=== PATIENT | male | born 1975 | race Caucasian/White ===

== ENCOUNTER 2017-12-07 04:51 | Inpatient (IN) | payer OTHER ==
[2017-12-07 04:51] VITALS: BMI 24.0
--- NOTE | 2017-12-07 05:09 | C.PDOC ---
History Of Present Illness 42 year old male presents to the ED c/o right foot pain for the past few days. Patient has known worsening edema but has failed to follow up with his Doctor. Patient denies trauma, injury, fall, weakness, numbness, CP, SOB, palpitations. Time Seen by Provider: 12/07/17 05:09 Chief Complaint (Nursing): Lower Extremity Problem/Injury History Per: Patient History/Exam Limitations: no limitations Onset/Duration Of Symptoms: Days Current Symptoms Are (Timing): Still Present Recent travel outside of the [place]: No Additional History Per: Patient - Ankle/Foot Description Of Injury: Other Past Medical History Reviewed: Historical Data, Nursing Documentation, Vital Signs Vital Signs: Last Vital Signs Temp 98 F 12/07/17 04:58 Pulse 84 12/07/17 04:58 Resp 14 12/07/17 04:58 BP 158/87 H 12/07/17 04:58 Pulse Ox 100 12/07/17 05:21 - Medical History PMH: Hypercholesterolemia Denies: Chronic Kidney Disease Surgical History: No Surg Hx Family History: States: Unknown Family Hx - Social History Hx Tobacco Use: No Hx Alcohol Use: No Hx Substance Use: No - Immunization History Hx Tetanus Toxoid Vaccination: No Hx Influenza Vaccination: Yes Hx Pneumococcal Vaccination: No Review Of Systems Constitutional: Negative for: Fever, Chills Cardiovascular: Negative for: Chest Pain Respiratory: Negative for: Shortness of Breath Gastrointestinal: Negative for: Nausea, Vomiting Musculoskeletal: Positive for: Foot Pain Neurological: Negative for: Weakness, Numbness Physical Exam - Physical Exam Appears: Non-toxic, No Acute Distress Skin: Warm, Dry Head: Normacephalic Eye(s): bilateral: Normal Inspection Oral Mucosa: Moist Neck: Supple Chest: Symmetrical Cardiovascular: Rhythm Regular, No Murmur Respiratory: No Rales, No Rhonchi, No Wheezing Gastrointestinal/Abdominal: Soft, No Tenderness, No Guarding, No Rebound Extremity: Normal ROM, Tenderness (medial aspect of right foot), Capillary Refill (< 2 seconds), No Swelling Pulses: Left Dorsalis Pedis: Normal, Right Dorsalis Pedis: Normal Neurological/Psych: Oriented x3, Normal Speech Gait: Steady ED Course And Treatment - Laboratory Results Result Diagrams: 12/07/17 05:34 12/07/17 05:34 O2 Sat by Pulse Oximetry: 100 (ON RA) Pulse Ox Interpretation: Normal Progress Note: Plan: - VBG. - Labs. - IV fluids. - Toradol 30 mg IVP. - UA Disposition Counseled Patient/Family Regarding: Studies Performed, Diagnosis - Disposition Disposition Time: 05:09 Condition: FAIR Forms: [facility] (Micronesian) - Clinical Impression Clinical Impression: Renal failure - Scribe Statement The provider has reviewed the documentation as recorded by the Scribe Salty Morris All medical record entries made by the Scribe were at my direction and personally dictated by me. I have reviewed the chart and agree that the record accurately reflects my personal performance of the history, physical exam, medical decision making, and the department course for this patient. I have also personally directed, reviewed, and agree with the discharge instructions and disposition. Physician Patient Turnover Patient Signed Over To: Rony Alvarez Handoff Comments: pending call back from dr carpenter and dispostion
[2017-12-07] MEDS ORDERED: Sodium Chloride 0.9% 1,000 ML IV ONE (05:12)
[2017-12-07] MEDS ORDERED: Sodium Chloride 0.9% 1,000 ML ONE (05:19)
[2017-12-07 05:36] LABS: VENOUS BLOOD GAS BASE EXCESS -8.5 mmol/L (0.0-2.0); VENOUS BLOOD GAS PCO2 42 mmHg (40-60); VENOUS BLOOD GAS PO2 22 mm/Hg (30-55); VENOUS BLOOD PH 7.25 (7.32-7.43)
[2017-12-07 05:37] LABS: BASO # 0.1 K/uL (0.0-0.2); EOS # 0.5 K/uL (0.0-0.7); EOS % 4.5 % (0.0-4.0); LYMPH # 1.4 K/uL (1.0-4.3); LYMPH % 13.4 % (20.0-40.0); MEAN CELL VOLUME 79.7 fL (80.0-94.0); MEAN CORPUSCULAR HEMOGLOBIN 27.1 pg (27.0-31.0); MEAN CORPUSCULAR HGB CONC 33.9 g/dL (33.0-37.0); MEAN PLATELET VOLUME 7.2 fL (7.2-11.7); MONO # 0.7 K/uL (0.0-0.8); MONO % 6.8 % (0.0-10.0); NEUT # 7.7 K/uL (1.8-7.0); NEUT % 74.3 % (50.0-75.0); RBC 3.7 Mil/uL (4.40-5.90); RED CELL DISTRIBUTION WIDTH 15.9 % (11.5-14.5); WHITE BLOOD COUNT 10.3 K/uL (4.8-10.8)
[2017-12-07 05:50] LABS: PROTHROMBIN TIME 11.1 SECONDS (9.7-12.2)
[2017-12-07 06:14] LABS: ALB/GLOB RATIO 1.1 (1.0-2.1); ALBUMIN 3.9 g/dL (3.5-5.0); CALCIUM 7.9 mg/dl (8.6-10.4)
[2017-12-07 06:30] LABS: SQUAMOUS EPITHIAL < 1 /hpf (0-5); URINE AMORPHOUS SEDIMENT RARE /ul (<OCC); URINE BILIRUBIN NEGATIVE (NEGATIVE); URINE BLOOD 1+ (NEGATIVE); URINE CLARITY Clear (Clear); URINE COLOR Straw (YELLOW); URINE GLUCOSE (UA) 1+ mg/dL (Normal); URINE LEUKOCYTE ESTERASE NEG Leu/uL (Negative); URINE PROTEIN 2+ mg/dL (NEGATIVE); URINE UROBILINOGEN NORMAL mg/dL (0.2-1.0)
--- NOTE | 2017-12-07 11:53 | CP.PCM.CON ---
History of Present Illness - History of Present Illness History of Present Illness: 42 yo male w/ known hx of ckd 4, no previous renal biopsy, presents for evaluation of renal failure as per instructions from PMD. Per pt. labs done in September, pt was asked to come to ER, however couldnt follow up. He c/o rt LE edema. Denies any nausea vomiting diarrhea, change in appetite weight loss lethargy chest pain dizziness good uop, no dysuria or hematuria no nsaid use last cretainine 3.5 mg/dl in 2015 denies any hx of dm, htn, heart disease pmhx: ckd 4 hld no prior surgeries allergies: nkda family hx: signicant for esrd in mpther and brother, both on hd. no hx of dm soc hx: denies any toxic habits. 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 [employer] ros: 10 point ros obtained, pertinent positives and negatives per hpi Review of Systems - Review of Systems All systems: reviewed and no additional remarkable complaints except (a sper hpi ) Past Patient History - Infectious Disease Hx of Infectious Diseases: None - Past Medical History & Family History Past Medical History?: Yes - Past Social History Smoking Status: Never Smoked - CARDIAC Hx Hypercholesterolemia: Yes - PULMONARY Hx Respiratory Disorders: No Hx Tuberculosis: No - NEUROLOGICAL HX Cerebrovascular Accident: No - HEENT Hx HEENT Problems: No - RENAL Hx Chronic Kidney Disease: No - ENDOCRINE/METABOLIC Hx Endocrine Disorders: No - HEMATOLOGICAL/ONCOLOGICAL Hx Blood Disorders: No Hx Cancer: No - INTEGUMENTARY Hx Dermatological Problems: No - MUSCULOSKELETAL/RHEUMATOLOGICAL Hx Musculoskeletal Disorders: No Hx Falls: No - GASTROINTESTINAL Hx Gastrointestinal Disorders: No - GENITOURINARY/GYNECOLOGICAL Hx Genitourinary Disorders: No - PSYCHIATRIC Hx Substance Use: No - SURGICAL HISTORY Hx Surgeries: No - ANESTHESIA Hx Anesthesia: No Hx Anesthesia Reactions: No Hx Malignant Hyperthermia: No Meds Allergies/Adverse Reactions: Allergies Allergy/AdvReac Type Severity Reaction Status Date / Time No Known Allergies Allergy Verified 12/07/17 05:01 - Medications Medications: Current Medications Calcitriol (Rocaltrol) 0.25 mcg PO DAILY [facility] Heparin Sodium (Porcine) (Heparin) 5,000 units SC Q12 [facility] Pantoprazole Sodium (Protonix Ec Tab) 20 mg PO DAILY [facility] Prednisolone (Prednisolone) 30 mg 0.5 mg/kg (31 mg) PO Q12 ANDI Stop: 12/09/17 22:01 Sodium Bicarbonate (Sodium Bicarbonate Tab) 650 mg PO BID ANDI Physical Exam - Constitutional Appears: Non-toxic, No Acute Distress, Chronically Ill - Head Exam Head Exam: NORMAL INSPECTION, NORMOCEPHALIC - Eye Exam Eye Exam: Normal appearance, PERRL - ENT Exam ENT Exam: Mucous Membranes Moist, Normal Exam - Neck Exam Neck exam: Positive for: Full Rom, Normal Inspection - Respiratory Exam Respiratory Exam: Clear to Auscultation Bilateral, NORMAL BREATHING PATTERN - Cardiovascular Exam Cardiovascular Exam: REGULAR RHYTHM, RRR - GI/Abdominal Exam GI & Abdominal Exam: Distended, Normal Bowel Sounds, Soft - Extremities Exam Extremities exam: Positive for: normal inspection - Back Exam Back exam: NORMAL INSPECTION - Neurological Exam Neurological exam: Alert, Oriented x3 - Psychiatric Exam Psychiatric exam: Normal Affect, Normal Mood - Skin Skin Exam: Dry, Intact, Warm Results - Vital Signs Recent Vital Signs: Last Vital Signs Temp 98.7 F 12/07/17 08:30 Pulse 79 12/07/17 08:30 Resp 18 12/07/17 08:30 BP 149/78 12/07/17 08:30 Pulse Ox 99 12/07/17 08:30 - Labs Result Diagrams: 12/07/17 05:34 12/07/17 05:34 Labs: Laboratory Results - last 24 hr 12/07/17 12/07/17 12/07/17 05:30 05:34 05:34 WBC 10.3 RBC 3.70 L Hgb 10.0 L D Hct 29.5 L MCV 79.7 L MCH 27.1 MCHC 33.9 RDW 15.9 H Plt Count 231 MPV 7.2 Neut % (Auto) 74.3 Lymph % (Auto) 13.4 L [place] % (Auto) 6.8 Eos % (Auto) 4.5 H Baso % (Auto) 1.0 Neut # (Auto) 7.7 H Lymph # (Auto) 1.4 [place] # (Auto) 0.7 Eos # (Auto) 0.5 Baso # (Auto) 0.1 PT 11.1 INR 1.0 APTT 36 H pO2 22 L VBG pH 7.25 L VBG pCO2 42 VBG HCO3 16.4 VBG Total CO2 19.7 L VBG O2 Sat (Calc) 37.7 L VBG Base Excess -8.5 L VBG Potassium 3.4 L Sodium 140.0 Chloride 109.0 H Glucose 90 Lactate 0.6 L Potassium Carbon Dioxide Anion Gap BUN Creatinine Est GFR ( Amer) Est GFR (Non-Af Amer) Random Glucose Calcium Total Bilirubin AST ALT Alkaline Phosphatase Total Protein Albumin Globulin Albumin/Globulin Ratio Venous Blood Potassium 3.4 L Urine Color Urine Clarity Urine pH Ur Specific [place] Urine Protein Urine Glucose (UA) Urine Ketones Urine Blood Urine Nitrate Urine Bilirubin Urine Urobilinogen Ur Leukocyte Esterase Urine WBC (Auto) Urine RBC (Auto) Ur Squamous Epith Cells Amorphous Sediment 12/07/17 12/07/17 05:34 06:20 WBC RBC Hgb Hct MCV MCH MCHC RDW Plt Count MPV Neut % (Auto) Lymph % (Auto) [place] % (Auto) Eos % (Auto) Baso % (Auto) Neut # (Auto) Lymph # (Auto) [place] # (Auto) Eos # (Auto) Baso # (Auto) PT INR APTT pO2 VBG pH VBG pCO2 VBG HCO3 VBG Total CO2 VBG O2 Sat (Calc) VBG Base Excess VBG Potassium Sodium 143 Chloride 108 H Glucose Lactate Potassium 3.6 Carbon Dioxide 17 L Anion Gap 22 H BUN 79 H Creatinine 8.5 H* Est GFR ( Amer) 8 Est GFR (Non-Af Amer) 7 Random Glucose 86 Calcium 7.9 L Total Bilirubin 0.4 AST 22 ALT 38 Alkaline Phosphatase 75 Total Protein 7.3 Albumin 3.9 Globulin 3.4 Albumin/Globulin Ratio 1.1 Venous Blood Potassium Urine Color Straw Urine Clarity Clear Urine pH 5.0 Ur Specific [place] 1.006 Urine Protein 2+ H Urine Glucose (UA) 1+ H Urine Ketones Negative Urine Blood 1+ H Urine Nitrate Negative Urine Bilirubin Negative Urine Urobilinogen Normal Ur Leukocyte Esterase Neg Urine WBC (Auto) 1 Urine RBC (Auto) 3 Ur Squamous Epith Cells < 1 Amorphous Sediment Rare H Assessment & Plan (1) Renal failure Status: Acute (2) Gout attack Status: Acute - Assessment and Plan (Free Text) Assessment: # progressive renal dz. esrd # gout # anemia of renal dz # hypokalemia # htn # metabolic acidosis plan: likely esrd, prior hx of advanced renal dz, family hx of esrd (? 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 Explained risks of refusing treatment , pt verbalized understanding. f/u renal US check hiv, hepatitis panel check ua check iron stores check pth / phos. start po calcitriol PO bicarb supplement potassium as needed, etiology of hypokalemia unclear, previously worked up
[2017-12-07] MEDS ORDERED: Bupivacaine 0.5% Inj(30mL) IJ ONE (13:31)
[2017-12-07] MEDS ORDERED: Triamcinolone Acetonide 40 mg/mL Inj IAA ONE (13:32)
[2017-12-07 13:45] VITALS: RESP 20
[2017-12-07] MEDS ORDERED: Bupivacaine 0.5% Inj(30mL) INJ ONE (13:45)
--- NOTE | 2017-12-07 14:18 | US ---
PROCEDURE: Ultrasound of the Kidneys HISTORY: acute renal failure COMPARISON: Renal ultrasound dated 04/13/2016. TECHNIQUE: Sonogram of the kidneys. FINDINGS: RIGHT KIDNEY: Measures: 9.7 x 4.6 x 4.0 cm. Increased echogenicity. Normal in size and contour. No stone, solid mass lesion or hydronephrosis visualized. LEFT KIDNEY: Measures: 10.1 x 5.5 x 4.8 cm. Increased echogenicity. Normal in size and contour. No stone, solid mass lesion or hydronephrosis visualized. OTHER FINDINGS: Urinary bladder prevoid volume measures 185.4 cc. Postvoid bladder volume is close to 0. IMPRESSION: Bilateral increased cortical echogenicity compatible with medical renal disease. No significant urinary bladder postvoid residual volume.
[2017-12-07] MEDS: PrednisoLONE 6 MG/2 ML SYR PO SCH (21:35)
[2017-12-08 07:50] LABS: BLOOD UREA NITROGEN 83 mg/dL (9-20); CALCIUM 8.7 mg/dl (8.6-10.4); GFR AFRICAN-AMERICAN 8; GFR NON-AFRICAN AMERICAN 7
[2017-12-08 07:58] VITALS: BP 142/85; PULSE 102; TEMP 98.5; O2SAT 95
[2017-12-08 08:00] LABS: HEPATITIS B SURFACE AG Negative (NEGATIVE)
--- NOTE | 2017-12-08 08:07 | CP.PCM.HP ---
History of Present Illness - History of Present Illness History of Present Illness: CC: Gout 42 y/o male with Gout, HTN, Hyperlipidemia, ESRD, (last Cr 8.4 last week). He was ask to go to ER after speaking w/ Dr Elaine but refuse dialysis. Patient has mild R foot painyesterday. He went to ER and noted with very high creatinine and admitted. Present on Admission - Present on Admission Any Indicators Present on Admission: Yes History of DVT/PE: No History of Uncontrolled Diabetes: No Urinary Catheter: No Decubitus Ulcer Present: No Review of Systems - Review of Systems Systems not reviewed;Unavailable: Acuity of Condition - Constitutional Constitutional: absent: Daytime Sleepiness, Excessive Sweating, Headache - EENT Eyes: absent: Loss of Peripheral Vision, Requires Corrective Lenses Nose/Mouth/Throat: Nasal Congestion. absent: Epistaxis, Nasal Discharge, Nasal Trauma, Hoarsness, Mouth Pain, Neck Mass - Cardiovascular Cardiovascular: absent: Chest Pain with Activity, Diaphoresis, Dyspnea, Irregular Heart Rhythm, Leg Edema - Respiratory Respiratory: absent: Cough, Hemoptysis, Dyspnea on Exertion, Wheezing, Chest Congestion, Change in Mucous Color - Gastrointestinal Gastrointestinal: Early Satiety, Heartburn, Nausea. absent: Abdominal Pain, Diarrhea, Dyspepsia, Loose Stools - Genitourinary Genitourinary: Dysuria, Urinary Urgency. absent: Difficulty Urinating, Nocturia - Musculoskeletal Musculoskeletal: Joint Swelling. absent: Atrophy, Back Pain, Loss of Height, Myalgias, Neck Pain - Neurological Neurological: absent: Abnormal Gait, Dizziness, Focal Weakness, Loss of Vision Past Patient History - Infectious Disease Hx of Infectious Diseases: None - Past Medical History & Family History Past Medical History?: Yes - Past Social History Smoking Status: Never Smoked - CARDIAC Hx Hypercholesterolemia: Yes - PULMONARY Hx Respiratory Disorders: No Hx Tuberculosis: No - NEUROLOGICAL HX Cerebrovascular Accident: No - HEENT Hx HEENT Problems: No - RENAL Hx Chronic Kidney Disease: No - ENDOCRINE/METABOLIC Hx Endocrine Disorders: No - HEMATOLOGICAL/ONCOLOGICAL Hx Blood Disorders: No Hx Cancer: No - INTEGUMENTARY Hx Dermatological Problems: No - MUSCULOSKELETAL/RHEUMATOLOGICAL Hx Musculoskeletal Disorders: No Hx Falls: No - GASTROINTESTINAL Hx Gastrointestinal Disorders: No - GENITOURINARY/GYNECOLOGICAL Hx Genitourinary Disorders: No - PSYCHIATRIC Hx Substance Use: No - SURGICAL HISTORY Hx Surgeries: No - ANESTHESIA Hx Anesthesia: No Hx Anesthesia Reactions: No Hx Malignant Hyperthermia: No Meds Allergies/Adverse Reactions: Allergies Allergy/AdvReac Type Severity Reaction Status Date / Time No Known Allergies Allergy Verified 12/07/17 05:01 Physical Exam - Constitutional Appears: Well, No Acute Distress - Eye Exam Eye Exam: absent: Normal appearance - ENT Exam ENT Exam: Mucous Membranes Moist - Neck Exam Neck exam: Positive for: Full Rom. Negative for: Lymphadenopathy, Thyromegaly - Respiratory Exam Respiratory Exam: Decreased Breath Sounds. absent: Rales, Rhonchi, Wheezes - Cardiovascular Exam Cardiovascular Exam: REGULAR RHYTHM, +S1, Systolic Murmur. absent: Gallop, JVD - GI/Abdominal Exam GI & Abdominal Exam: Soft. absent: Guarding, Tenderness - Extremities Exam Extremities exam: Positive for: full ROM, normal capillary refill, pedal edema. Negative for: calf tenderness, joint swelling Results - Vital Signs Recent Vital Signs: Last Vital Signs Temp 98.5 F 12/08/17 07:57 Pulse 102 H 12/08/17 07:57 Resp 20 12/08/17 07:57 BP 142/85 12/08/17 07:57 Pulse Ox 95 12/08/17 07:57 - Labs Result Diagrams: 12/07/17 05:34 12/08/17 07:00 Labs: Laboratory Results - last 24 hr 12/07/17 12/07/17 12/08/17 21:41 22:36 07:00 Sodium Potassium Chloride Carbon Dioxide Anion Gap BUN Creatinine Est GFR ( Amer) Est GFR (Non-Af Amer) Random Glucose Calcium % Saturation 14 L Ur Random Creatinine 36.3 U Random Total Protein 167.0 H Hep Bs Antigen HIV 1&2 Antibody Screen 12/08/17 12/08/17 07:00 07:00 Sodium 143 Potassium 3.5 L Chloride 111 H Carbon Dioxide 14 L Anion Gap 22 H BUN 83 H Creatinine 8.7 H* Est GFR ( Amer) 8 Est GFR (Non-Af Amer) 7 Random Glucose 118 H Calcium 8.7 % Saturation Ur Random Creatinine U Random Total Protein Hep Bs Antigen Negative HIV 1&2 Antibody Screen Negative Assessment & Plan - Assessment and Plan (Free Text) Assessment: Familial Nephropathy w/ hypokalemia; ESRD Ac gout r foot; HTN Discuss with and ; Want to think it out at home c/o less pressure Will discharge and f/i up on 3-5 days
[2017-12-08] MEDS ORDERED: Pneumococcal 23-Valent Vaccine IM ONE (10:00)
[2017-12-08] MEDS ORDERED: Pantoprazole 20 mg EC Tab PO SCH (10:00)
[2017-12-08] MEDS: PrednisoLONE 6 MG/2 ML SYR PO SCH (10:33)
== END 2017-12-08 11:09 | disposition home or self-care (01) | DRG 556 ==
LOC: C.ER 04:51 → C.9E 09:59 → C.3T 13:26
PROVIDERS: ADMIT Internal Medicine; ATTEND Internal Medicine
DX: M79.661 Pain in right lower leg (principal); E87.2 Acidosis; N18.4 Chronic kidney disease, stage 4 (severe); I12.9 Hypertensive chronic kidney disease with stage 1 through stage 4 chronic kidney disease, or unspecified chronic kidney disease; M10.9 Gout, unspecified; E87.6 Hypokalemia; E78.5 Hyperlipidemia, unspecified; D64.9 Anemia, unspecified

== ENCOUNTER 2017-12-13 23:59 | Inpatient (IN) | payer OTHER ==
[2017-12-14] VITALS: BMI 24.0
--- NOTE | 2017-12-14 00:24 | C.PDOC ---
History Of Present Illness 42 y/o male presents to the ED complaining he began to feel short of breath at home, onset earlier tonight. Denies any chest pain or palpitations. Patient admits to feeling very anxious. O2 Sat on arrival is 100% on RA. Otherwise no fever, chills, cough, congestion, leg pain/swelling, nausea, or vomiting. Time Seen by Provider: 12/14/17 00:24 Chief Complaint (Nursing): Shortness Of Breath History Per: Patient History/Exam Limitations: no limitations Onset/Duration Of Symptoms: Hrs Current Symptoms Are (Timing): Still Present Initiating Event: Other Quality: Dull Exacerbating Factor(s): Exertion Current Respiratory Medications: See Home Med List Severity: Moderate Pain Scale Rating Of: 4 Associated Symptoms: Anxiety. denies: Fever, Chills, Sweating, Chest Pain Reports Recently: Seen In ED, Treated By A Physician, Hospitalized Recent travel outside of the [place]: No Additional History Per: Patient Past Medical History Reviewed: Historical Data, Nursing Documentation, Vital Signs Vital Signs: Last Vital Signs Temp 98.7 F 12/14/17 02:55 Pulse 93 H 12/14/17 02:55 Resp 20 12/14/17 02:55 BP 148/97 H 12/14/17 02:55 Pulse Ox 100 12/14/17 02:55 - Medical History PMH: Hypercholesterolemia Denies: Chronic Kidney Disease Surgical History: No Surg Hx Family History: States: Unknown Family Hx - Social History Hx Tobacco Use: No Hx Alcohol Use: No Hx Substance Use: No - Immunization History Hx Tetanus Toxoid Vaccination: No Hx Influenza Vaccination: Yes Hx Pneumococcal Vaccination: No Review Of Systems Constitutional: Negative for: Fever, Chills Eyes: Negative for: Vision Change ENT: Negative for: Throat Pain Cardiovascular: Positive for: Chest Pain. Negative for: Palpitations Respiratory: Positive for: Shortness of Breath. Negative for: Cough Gastrointestinal: Negative for: Nausea, Vomiting Genitourinary: Negative for: Dysuria Musculoskeletal: Negative for: Back Pain, Leg Pain Skin: Negative for: Rash Neurological: Negative for: Weakness Psych: Positive for: Anxiety Physical Exam - Physical Exam Appears: No Acute Distress Skin: Warm, Dry, No Diaphoretic Head: Normacephalic Eye(s): bilateral: Normal Inspection Oral Mucosa: Dry Neck: Trachea Midline, Supple Chest: Symmetrical Cardiovascular: Rhythm Regular Respiratory: No Rales, Rhonchi (scattered), No Wheezing Gastrointestinal/Abdominal: Soft, No Tenderness, No Distention Back: Normal Inspection Extremity: Normal ROM, No Pedal Edema Extremity: Bilateral: Atraumatic, Normal Color And Temperature Pulses: Left Dorsalis Pedis: Normal, Right Dorsalis Pedis: Normal Neurological/Psych: Oriented x3, Normal Speech Gait: Steady ED Course And Treatment - Laboratory Results Result Diagrams: 12/14/17 00:51 12/14/17 00:51 ECG: Interpreted By Me, Viewed By Me ECG Rhythm: Sinus Rhythm (101), Nonspecific Changes O2 Sat by Pulse Oximetry: 100 (RA) Pulse Ox Interpretation: Normal - Radiology CXR Interpretation: Yes: Other (mild vasc congestion). No: Infiltrates, Fracture, Pnemothorax Progress Note: Labs, EKG, and CXR ordered and reviewed. Disposition Discussed With DrBurton: Maximino Peng Comment: accepted the pt on his service and took over the care at 5:30 AM Doctor Will See Patient In The: ED Counseled Patient/Family Regarding: Studies Performed, Diagnosis - Disposition Disposition: HOSPITALIZED Disposition Time: 00:24 Condition: FAIR Forms: [employer] ([place]) - POA Present On Arrival: Poor Glycemic Control - Clinical Impression Clinical Impression: Renal failure, Dyspnea, CHF (congestive heart failure), ESRD (end stage renal disease) - Scribe Statement The provider has reviewed the documentation as recorded by the Scribe (Mayela Vee) Provider Attestation: All medical record entries made by the Scribe were at my direction and personally dictated by me. I have reviewed the chart and agree that the record accurately reflects my personal performance of the history, physical exam, medical decision making, and the department course for this patient. I have also personally directed, reviewed, and agree with the discharge instructions and disposition. Decision To Admit - Pt Status Changed To: Hospital Disposition Of: Inpatient - Admit Certification Admit to Inpatient:: After my assessment, the patient will require hospitalization for at least two midnights. This is because of the severity of symptoms shown, intensity of services needed, and/or the medical risk in this patient being treated as an outpatient. - InPatient: Physician Admission Certification: I certify that this patient requires 2 or more midnights of care for the following reason:: After my assessment, the patient will require hospitalization for at least two midnights. This is because of the severity of symptoms shown, intensity of services needed, and/or the medical risk in this patient being treated as an outpatient. - . Bed Request Type: Telemetry Admitting Physician: Maximino Peng Patient Diagnosis: Renal failure, Dyspnea, CHF (congestive heart failure), ESRD (end stage renal disease)
[2017-12-14 00:54] LABS: BASO # 0.1 K/uL (0.0-0.2); BASO % 0.8 % (0.0-2.0); EOS # 0.1 K/uL (0.0-0.7); EOS % 0.5 % (0.0-4.0); HEMOGLOBIN 9.9 g/dL (12.0-18.0); LYMPH # 1.5 K/uL (1.0-4.3); LYMPH % 10.8 % (20.0-40.0); MEAN CELL VOLUME 79.8 fL (80.0-94.0); MEAN CORPUSCULAR HEMOGLOBIN 26.7 pg (27.0-31.0); MEAN CORPUSCULAR HGB CONC 33.4 g/dL (33.0-37.0); MEAN PLATELET VOLUME 7.5 fL (7.2-11.7); MONO # 1.2 K/uL (0.0-0.8); NEUT # 10.8 K/uL (1.8-7.0); NEUT % 78.9 % (50.0-75.0); RBC 3.72 Mil/uL (4.40-5.90); RED CELL DISTRIBUTION WIDTH 15.9 % (11.5-14.5); WHITE BLOOD COUNT 13.6 K/uL (4.8-10.8)
[2017-12-14 01:05] LABS: ABG ALLEN TEST POS; ARTERIAL BLOOD GAS HCO3 16.7 mmol/L (21-28); ARTERIAL BLOOD GAS O2 SAT 99.1 % (95-98); ARTERIAL BLOOD GAS PCO2 28 mm/Hg (35-45); ARTERIAL BLOOD GAS PH 7.31 (7.35-7.45); ARTERIAL BLOOD GAS PO2 104 mm/Hg (80-100)
[2017-12-14 01:20] LABS: TROPONIN I 0.015 ng/mL (0.00-0.120)
[2017-12-14 01:36] LABS: ALB/GLOB RATIO 1.4 (1.0-2.1); ALBUMIN 4.2 g/dL (3.5-5.0); CALCIUM 8.2 mg/dl (8.6-10.4)
[2017-12-14] MEDS ORDERED: Potassium Chloride 10 mEq ER Tab PO STA (03:13)
[2017-12-14] MEDS ORDERED: Potassium Chloride 10 mEq ER Tab PO ONE (03:44)
--- NOTE | 2017-12-14 08:33 | RAD ---
PROCEDURE: CHEST RADIOGRAPH, 1 VIEW HISTORY: SOB COMPARISON: 04/12/2016 FINDINGS: LUNGS: No consolidation. PLEURA: No pneumothorax or pleural fluid seen. CARDIOVASCULAR: Heart size top normal. Mild pulmonary venous congestion -increased since prior exam. OSSEOUS STRUCTURES: No significant abnormalities. VISUALIZED UPPER ABDOMEN: Normal. OTHER FINDINGS: None. IMPRESSION: Interval increased pulmonary venous congestion since 2016.
--- NOTE | 2017-12-14 08:41 | CP.PCM.HP ---
History of Present Illness - History of Present Illness History of Present Illness: CC: Pain Patient seen last week in Hospital and does not f/up c/o has 2 jobs. Pt has recurrence of gout on left foot and now also on right. Pain is throbbing and has to limp to walk. He went back to ER and admitted. Present on Admission - Present on Admission Any Indicators Present on Admission: Yes History of DVT/PE: No History of Uncontrolled Diabetes: No Urinary Catheter: No Decubitus Ulcer Present: No Review of Systems - Constitutional Constitutional: Anorexia, Fatigue, Weight Loss, Weakness. absent: Excessive Sweating, Headache, Increased Appetite, Lethargy - EENT Eyes: absent: Change in Vision, Floaters, Irritation, Loss of Peripheral Vision , Sees Flashes Ears: absent: Decreased Hearing, Ear Discharge, Tinnitus, Abnormal Hearing, Dizziness Nose/Mouth/Throat: absent: Nasal Congestion, Bleeding Gums, Halitosis, Odynophagia, Neck Pain - Cardiovascular Cardiovascular: absent: Chest Pain, Irregular Heart Rhythm, Leg Edema, Leg Ulcers, Orthopnea, Palpitations, Pedal Edema, Syncope - Respiratory Respiratory: absent: Cough, Dyspnea, Hemoptysis, Chest Congestion - Gastrointestinal Gastrointestinal: Dyspepsia, Early Satiety. absent: Bloating, Dysphagia, Heartburn, Hematochezia, Loose Stools, Melena, Nausea - Genitourinary Genitourinary: absent: Difficulty Urinating, Dysuria, Urinary Hesitance - Integumentary Integumentary: absent: Alopecia, Change in Pigmentation, Lesions, Rash - Neurological Neurological: Abnormal Gait. absent: Dizziness, Numbness, Focal Weakness, Loss of Vision, Restless Legs Past Patient History - Infectious Disease Hx of Infectious Diseases: None - Past Medical History & Family History Past Medical History?: Yes - Past Social History Smoking Status: Never Smoked - CARDIAC Hx Hypercholesterolemia: Yes - PULMONARY Hx Respiratory Disorders: No Hx Tuberculosis: No - NEUROLOGICAL HX Cerebrovascular Accident: No - HEENT Hx HEENT Problems: No - RENAL Hx Chronic Kidney Disease: No - ENDOCRINE/METABOLIC Hx Endocrine Disorders: No - HEMATOLOGICAL/ONCOLOGICAL Hx Blood Disorders: No Hx Cancer: No - INTEGUMENTARY Hx Dermatological Problems: No - MUSCULOSKELETAL/RHEUMATOLOGICAL Hx Musculoskeletal Disorders: No Hx Falls: No - GASTROINTESTINAL Hx Gastrointestinal Disorders: No - GENITOURINARY/GYNECOLOGICAL Hx Genitourinary Disorders: No - PSYCHIATRIC Hx Substance Use: No - SURGICAL HISTORY Hx Surgeries: No - ANESTHESIA Hx Anesthesia: No Hx Anesthesia Reactions: No Hx Malignant Hyperthermia: No Meds Allergies/Adverse Reactions: Allergies Allergy/AdvReac Type Severity Reaction Status Date / Time No Known Allergies Allergy Verified 12/07/17 05:01 Physical Exam - Constitutional Appears: Well - Eye Exam Eye Exam: Normal appearance - ENT Exam ENT Exam: Mucous Membranes Moist - Neck Exam Neck exam: Positive for: Full Rom. Negative for: Lymphadenopathy, Tenderness - Respiratory Exam Respiratory Exam: Clear to Auscultation Bilateral. absent: Rales, Rhonchi, Wheezes - Cardiovascular Exam Cardiovascular Exam: REGULAR RHYTHM, +S1, +S2. absent: Gallop, JVD, Systolic Murmur - GI/Abdominal Exam GI & Abdominal Exam: Soft. absent: Hernia, Tenderness Results - Vital Signs Recent Vital Signs: Last Vital Signs Temp 99 F 12/14/17 06:21 Pulse 96 H 12/14/17 07:25 Resp 20 12/14/17 07:25 BP 143/73 12/14/17 06:21 Pulse Ox 99 12/14/17 07:25 - Labs Result Diagrams: 12/14/17 00:51 12/14/17 00:51 Labs: Laboratory Results - last 24 hr 12/14/17 12/14/17 12/14/17 00:51 00:51 00:51 WBC 13.6 H RBC 3.72 L Hgb 9.9 L Hct 29.7 L MCV 79.8 L MCH 26.7 L MCHC 33.4 RDW 15.9 H Plt Count 248 MPV 7.5 Neut % (Auto) 78.9 H Lymph % (Auto) 10.8 L [place] % (Auto) 9.0 Eos % (Auto) 0.5 Baso % (Auto) 0.8 Neut # (Auto) 10.8 H Lymph # (Auto) 1.5 [place] # (Auto) 1.2 H Eos # (Auto) 0.1 Baso # (Auto) 0.1 PT 11.0 INR 1.0 APTT 35 H Puncture Site pCO2 pO2 HCO3 ABG pH ABG Total CO2 ABG O2 Saturation ABG Base Excess Buck Test ABG Potassium A-a O2 Difference Respiratory Index Glucose Lactate FiO2 Sodium 138 Potassium 2.9 L Chloride 104 Carbon Dioxide 13 L Anion Gap 24 H BUN 90 H Creatinine 8.8 H* Est GFR ( Amer) 8 Est GFR (Non-Af Amer) 7 Random Glucose 137 H Calcium 8.2 L Magnesium 1.9 Total Bilirubin 0.5 AST 18 ALT 41 Alkaline Phosphatase 73 Troponin I 0.0150 NT-Pro-B Natriuret Pep 1830 H Total Protein 7.2 Albumin 4.2 Globulin 3.1 Albumin/Globulin Ratio 1.4 Arterial Blood Potassium 12/14/17 01:00 WBC RBC Hgb Hct MCV MCH MCHC RDW Plt Count MPV Neut % (Auto) Lymph % (Auto) [place] % (Auto) Eos % (Auto) Baso % (Auto) Neut # (Auto) Lymph # (Auto) [place] # (Auto) Eos # (Auto) Baso # (Auto) PT INR APTT Puncture Site Rr pCO2 28 L pO2 104 H HCO3 16.7 L ABG pH 7.31 L ABG Total CO2 15.0 L ABG O2 Saturation 99.1 H ABG Base Excess -10.6 L Buck Test Pos ABG Potassium 2.8 L A-a O2 Difference 11.0 Respiratory Index 0.1 Glucose 128 H Lactate 0.8 FiO2 21.0 Sodium 137.0 Potassium Chloride 108.0 H Carbon Dioxide Anion Gap BUN Creatinine Est GFR ( Amer) Est GFR (Non-Af Amer) Random Glucose Calcium Magnesium Total Bilirubin AST ALT Alkaline Phosphatase Troponin I NT-Pro-B Natriuret Pep Total Protein Albumin Globulin Albumin/Globulin Ratio Arterial Blood Potassium 2.8 L - EKG Data EKG Interpreted by: Myself Rate: Normal - EKG Data When Compared to Previous EKG: No Significant Change Assessment & Plan - Assessment and Plan (Free Text) Assessment: Acute gout on both feet; ESRD w/ uremic sx HTN Discuss in length c/o holding off dialysis but getting gout daily. Also has lose wt c/o nausea & early satiety - still undecided c/o dialysis Supportive care
--- NOTE | 2017-12-14 09:23 | CP.PCM.CON ---
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 Surgery is consulted to evaluate for HD access. His Cr in 2013 was 4 baseline. This year November Cr is elevated to 8. IN the past pt refused HD access in the past. Pt was scheduled for permacath today. Refused. Will plan tomorrow. Denies fever, nausea, diarrhea , CP. PMH ESRD , CHF, HLD, gout PSH: None Review of Systems - Review of Systems Review of Systems: See HPI Past Patient History - Infectious Disease Hx of Infectious Diseases: None - Past Medical History & Family History Past Medical History?: Yes - Past Social History Smoking Status: Never Smoked - CARDIAC Hx Hypercholesterolemia: Yes - PULMONARY Hx Respiratory Disorders: No Hx Tuberculosis: No - NEUROLOGICAL HX Cerebrovascular Accident: No - HEENT Hx HEENT Problems: No - RENAL Hx Chronic Kidney Disease: No - ENDOCRINE/METABOLIC Hx Endocrine Disorders: No - HEMATOLOGICAL/ONCOLOGICAL Hx Blood Disorders: No Hx Cancer: No - INTEGUMENTARY Hx Dermatological Problems: No - MUSCULOSKELETAL/RHEUMATOLOGICAL Hx Musculoskeletal Disorders: No Hx Falls: No - GASTROINTESTINAL Hx Gastrointestinal Disorders: No - GENITOURINARY/GYNECOLOGICAL Hx Genitourinary Disorders: No - PSYCHIATRIC Hx Substance Use: No - SURGICAL HISTORY Hx Surgeries: No - ANESTHESIA Hx Anesthesia: No Hx Anesthesia Reactions: No Hx Malignant Hyperthermia: No Meds Allergies/Adverse Reactions: Allergies Allergy/AdvReac Type Severity Reaction Status Date / Time No Known Allergies Allergy Verified 12/07/17 05:01 - Medications Medications: Current Medications Amlodipine Besylate (Norvasc) 5 mg PO DAILY [facility] Famotidine (Pepcid) 20 mg PO DAILY [facility] Prednisone (Prednisone Tab) 30 mg PO BID [facility] Physical Exam - Constitutional Appears: No Acute Distress - Head Exam Head Exam: ATRAUMATIC, NORMAL INSPECTION, NORMOCEPHALIC - Eye Exam Eye Exam: EOMI, Normal appearance, PERRL Pupil Exam: NORMAL ACCOMODATION, PERRL - ENT Exam ENT Exam: Mucous Membranes Moist, Normal Exam - Neck Exam Neck exam: Positive for: Normal Inspection - Respiratory Exam Respiratory Exam: Clear to Auscultation Bilateral, NORMAL BREATHING PATTERN - Cardiovascular Exam Cardiovascular Exam: REGULAR RHYTHM - GI/Abdominal Exam GI & Abdominal Exam: Normal Bowel Sounds, Soft. absent: Tenderness - Extremities Exam Extremities exam: Positive for: normal inspection - Back Exam Back exam: NORMAL INSPECTION - Neurological Exam Neurological exam: Alert, CN II-XII Intact, Normal Gait, Oriented x3, Reflexes Normal - Psychiatric Exam Psychiatric exam: Normal Affect, Normal Mood - Skin Skin Exam: Dry, Intact, Normal Color, Warm Results - Vital Signs Recent Vital Signs: Last Vital Signs Temp 98 F 12/14/17 07:30 Pulse 87 12/14/17 07:30 Resp 18 12/14/17 07:30 BP 158/86 H 12/14/17 07:30 Pulse Ox 100 12/14/17 07:30 - Labs Result Diagrams: 12/14/17 00:51 12/14/17 00:51 Labs: Laboratory Results - last 24 hr 12/14/17 12/14/17 12/14/17 00:51 00:51 00:51 WBC 13.6 H RBC 3.72 L Hgb 9.9 L Hct 29.7 L MCV 79.8 L MCH 26.7 L MCHC 33.4 RDW 15.9 H Plt Count 248 MPV 7.5 Neut % (Auto) 78.9 H Lymph % (Auto) 10.[address] % (Auto) 9.0 Eos % (Auto) 0.5 Baso % (Auto) 0.8 Neut # (Auto) 10.8 H Lymph # (Auto) 1.5 [facility] # (Auto) 1.2 H Eos # (Auto) 0.1 Baso # (Auto) 0.1 PT 11.0 INR 1.0 APTT 35 H Puncture Site pCO2 pO2 HCO3 ABG pH ABG Total CO2 ABG O2 Saturation ABG Base Excess Buck Test ABG Potassium A-a O2 Difference Respiratory Index Glucose Lactate FiO2 Sodium 138 Potassium 2.9 L Chloride 104 Carbon Dioxide 13 L Anion Gap 24 H BUN 90 H Creatinine 8.8 H* Est GFR ( Amer) 8 Est GFR (Non-Af Amer) 7 Random Glucose 137 H Calcium 8.2 L Magnesium 1.9 Total Bilirubin 0.5 AST 18 ALT 41 Alkaline Phosphatase 73 Troponin I 0.0150 NT-Pro-B Natriuret Pep 1830 H Total Protein 7.2 Albumin 4.2 Globulin 3.1 Albumin/Globulin Ratio 1.4 Arterial Blood Potassium 12/14/17 01:00 WBC RBC Hgb Hct MCV MCH MCHC RDW Plt Count MPV Neut % (Auto) Lymph % (Auto) [facility] % (Auto) Eos % (Auto) Baso % (Auto) Neut # (Auto) Lymph # (Auto) [facility] [place] # (Auto) Eos # (Auto) Baso # (Auto) PT INR APTT Puncture Site Rr pCO2 28 L pO2 104 H HCO3 16.7 L ABG pH 7.31 L ABG Total CO2 15.0 L ABG O2 Saturation 99.1 H ABG Base Excess -10.6 L Buck Test Pos ABG Potassium 2.8 L A-a O2 Difference 11.0 Respiratory Index 0.1 Glucose 128 H Lactate 0.8 FiO2 21.0 Sodium 137.0 Potassium Chloride 108.0 H Carbon Dioxide Anion Gap BUN Creatinine Est GFR ( Amer) Est GFR (Non-Af Amer) Random Glucose Calcium Magnesium Total Bilirubin AST ALT Alkaline Phosphatase Troponin I NT-Pro-B Natriuret Pep Total Protein Albumin Globulin Albumin/Globulin Ratio Arterial Blood Potassium 2.8 L Assessment & Plan - Assessment and Plan (Free Text) Assessment: ESRD needing HD Cr 8.8 -WIll plan for OR tomorrow for Permacath placement -L arm precaution for possible AVF -NPO after midnight -F/U vein map DW Dr. Ocampo
[2017-12-14] MEDS ORDERED: Sodium Chloride 0.9% 500 ML IV ONE (09:54)
--- NOTE | 2017-12-14 10:31 | CP.PCM.CON ---
History of Present Illness - History of Present Illness History of Present Illness: 42 yo male w/ known hx of ckd 4, no previous renal biopsy, presents with acute gout attack. currently pain in rt foot much improved, able to bear weight. denies any nausea vomiting weight loss/gain, loss of appetite, confusion, dizziness, fevers/chills/dysuria/hematuria/change in uop Renal consultation for evaluation of renal failure labs done in September, creatinine close to 8mg/dl, admitted earlier this month - declined hd and discharged, subsequently lost to follow up. currently on steroids for gout denies any hx of dm, htn, heart disease pmhx: ckd 4 hld no prior surgeries allergies: nkda family hx: signicant for esrd in mother and brother, both on hd. no hx of dm soc hx: denies any toxic habits. 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 [employer] ros: 10 point ros obtained, pertinent positives and negatives per hpi Review of Systems - Review of Systems All systems: reviewed and no additional remarkable complaints except (as per HPI ) Past Patient History - Infectious Disease Hx of Infectious Diseases: None - Past Medical History & Family History Past Medical History?: Yes - Past Social History Smoking Status: Never Smoked - CARDIAC Hx Hypercholesterolemia: Yes - PULMONARY Hx Respiratory Disorders: No Hx Tuberculosis: No - NEUROLOGICAL HX Cerebrovascular Accident: No - HEENT Hx HEENT Problems: No - RENAL Hx Chronic Kidney Disease: No - ENDOCRINE/METABOLIC Hx Endocrine Disorders: No - HEMATOLOGICAL/ONCOLOGICAL Hx Blood Disorders: No Hx Cancer: No - INTEGUMENTARY Hx Dermatological Problems: No - MUSCULOSKELETAL/RHEUMATOLOGICAL Hx Musculoskeletal Disorders: No Hx Falls: No - GASTROINTESTINAL Hx Gastrointestinal Disorders: No - GENITOURINARY/GYNECOLOGICAL Hx Genitourinary Disorders: No - PSYCHIATRIC Hx Substance Use: No - SURGICAL HISTORY Hx Surgeries: No - ANESTHESIA Hx Anesthesia: No Hx Anesthesia Reactions: No Hx Malignant Hyperthermia: No Meds Allergies/Adverse Reactions: Allergies Allergy/AdvReac Type Severity Reaction Status Date / Time No Known Allergies Allergy Verified 12/07/17 05:01 - Medications Medications: Current Medications Amlodipine Besylate (Norvasc) 5 mg PO DAILY [facility] Last Admin: 12/14/17 09:36 Dose: 5 mg Famotidine (Pepcid) 20 mg PO DAILY [facility] Last Admin: 12/14/17 09:36 Dose: 20 mg Potassium Chloride (Potassium Chloride 20 Meq/100 Ml) 20 meq in 100 mls @ 50 mls/hr IVPB ONCE ONE Stop: 12/14/17 12:25 Magnesium Oxide (Mag-Ox) 400 mg PO DAILY [facility] Prednisone (Prednisone Tab) 30 mg PO BID [facility] Last Admin: 12/14/17 09:36 Dose: 30 mg Physical Exam - Constitutional Appears: Non-toxic, No Acute Distress, Chronically Ill - Head Exam Head Exam: NORMAL INSPECTION, NORMOCEPHALIC - Eye Exam Eye Exam: Normal appearance, PERRL - ENT Exam ENT Exam: Mucous Membranes Moist, Normal Exam - Neck Exam Neck exam: Positive for: Normal Inspection - Respiratory Exam Respiratory Exam: Clear to Auscultation Bilateral, NORMAL BREATHING PATTERN - Cardiovascular Exam Cardiovascular Exam: REGULAR RHYTHM (no rub) - GI/Abdominal Exam GI & Abdominal Exam: Distended, Normal Bowel Sounds, Soft - Extremities Exam Extremities exam: Positive for: normal inspection (no tenderness rt foot ) Results - Vital Signs Recent Vital Signs: Last Vital Signs Temp 98 F 12/14/17 07:30 Pulse 81 12/14/17 09:32 Resp 18 12/14/17 07:30 BP 160/82 H 12/14/17 09:32 Pulse Ox 100 12/14/17 07:30 - Labs Result Diagrams: 12/14/17 00:51 12/14/17 00:51 Labs: Laboratory Results - last 24 hr 12/14/17 12/14/17 12/14/17 00:51 00:51 00:51 WBC 13.6 H RBC 3.72 L Hgb 9.9 L Hct 29.7 L MCV 79.8 L MCH 26.7 L MCHC 33.4 RDW 15.9 H Plt Count 248 MPV 7.5 Neut % (Auto) 78.9 H Lymph % (Auto) 10.8 L [place] % (Auto) 9.0 Eos % (Auto) 0.5 Baso % (Auto) 0.8 Neut # (Auto) 10.8 H Lymph # (Auto) 1.5 [place] # (Auto) 1.2 H Eos # (Auto) 0.1 Baso # (Auto) 0.1 PT 11.0 INR 1.0 APTT 35 H Puncture Site pCO2 pO2 HCO3 ABG pH ABG Total CO2 ABG O2 Saturation ABG Base Excess Buck Test ABG Potassium A-a O2 Difference Respiratory Index Glucose Lactate FiO2 Sodium 138 Potassium 2.9 L Chloride 104 Carbon Dioxide 13 L Anion Gap 24 H BUN 90 H Creatinine 8.8 H* Est GFR ( Amer) 8 Est GFR (Non-Af Amer) 7 Random Glucose 137 H Calcium 8.2 L Magnesium 1.9 Total Bilirubin 0.5 AST 18 ALT 41 Alkaline Phosphatase 73 Troponin I 0.0150 NT-Pro-B Natriuret Pep 1830 H Total Protein 7.2 Albumin 4.2 Globulin 3.1 Albumin/Globulin Ratio 1.4 Arterial Blood Potassium 12/14/17 01:00 WBC RBC Hgb Hct MCV MCH MCHC RDW Plt Count MPV Neut % (Auto) Lymph % (Auto) [place] % (Auto) Eos % (Auto) Baso % (Auto) Neut # (Auto) Lymph # (Auto) [place] # (Auto) Eos # (Auto) Baso # (Auto) PT INR APTT Puncture Site Rr pCO2 28 L pO2 104 H HCO3 16.7 L ABG pH 7.31 L ABG Total CO2 15.0 L ABG O2 Saturation 99.1 H ABG Base Excess -10.6 L Buck Test Pos ABG Potassium 2.8 L A-a O2 Difference 11.0 Respiratory Index 0.1 Glucose 128 H Lactate 0.8 FiO2 21.0 Sodium 137.0 Potassium Chloride 108.0 H Carbon Dioxide Anion Gap BUN Creatinine Est GFR ( Amer) Est GFR (Non-Af Amer) Random Glucose Calcium Magnesium Total Bilirubin AST ALT Alkaline Phosphatase Troponin I NT-Pro-B Natriuret Pep Total Protein Albumin Globulin Albumin/Globulin Ratio Arterial Blood Potassium 2.8 L Assessment & Plan (1) Hypertension Status: Acute (2) ESRD (end stage renal disease) Status: Acute (3) Gout attack Status: Acute (4) Hypokalemia Status: Acute (5) Anemia Status: Acute - Assessment and Plan (Free Text) Assessment: recommended starting hd at this time, pt wants to speak to his family and wants a second opinion. persistent hypokalemia despite advanced renal failure, metabolic acidosis. cannot r/o minderalocorticoid excess / salt losing nephropathy / tubular dysfunction. replenish k, mag supplementation. check renin/ben on steroid for gout, expect some azotemia. recommend taper.
[2017-12-14] MEDS: Magnesium Oxide 400 mg Tab UD PO SCH (11:11)
--- NOTE | 2017-12-14 13:32 | CP.PCM.PN ---
Subjective - Date & Time of Evaluation Date of Evaluation: 12/14/17 Time of Evaluation: 13:30 - Subjective Subjective: planned permacath today discussed with father and patient in [place] and timmy with nurse will reschedule for permacath for tomporrow patient aware of risks and issues Objective - Vital Signs/Intake and Output Vital Signs (last 24 hours): Temp Pulse Resp BP Pulse Ox 98 F 81 18 160/82 H 100 12/14/17 07:30 12/14/17 09:32 12/14/17 07:30 12/14/17 09:32 12/14/17 07:30 - Medications Medications: Current Medications Amlodipine Besylate (Norvasc) 5 mg PO DAILY [facility] Last Admin: 12/14/17 09:36 Dose: 5 mg Famotidine (Pepcid) 20 mg PO DAILY [facility] Last Admin: 12/14/17 09:36 Dose: 20 mg Magnesium Oxide (Mag-Ox) 400 mg PO DAILY [facility] Last Admin: 12/14/17 11:11 Dose: 400 mg Prednisone (Prednisone Tab) 30 mg PO BID [facility] Last Admin: 12/14/17 09:36 Dose: 30 mg - Labs Labs: 12/14/17 00:51 12/14/17 00:51 PT 11.0 SECONDS (9.7-12.2) 12/14/17 00:51 INR 1.0 12/14/17 00:51 APTT 35 SECONDS (21-34) H 12/14/17 00:51
[2017-12-15 07:16] LABS: BASO % 0.3 % (0.0-2.0); HEMOGLOBIN 10.1 g/dL (12.0-18.0); LYMPH # 0.7 K/uL (1.0-4.3); LYMPH % 5.4 % (20.0-40.0); MEAN CELL VOLUME 79.3 fL (80.0-94.0); MEAN CORPUSCULAR HEMOGLOBIN 27.2 pg (27.0-31.0); MEAN CORPUSCULAR HGB CONC 34.3 g/dL (33.0-37.0); MEAN PLATELET VOLUME 7.6 fL (7.2-11.7); MONO # 0.3 K/uL (0.0-0.8); MONO % 2.4 % (0.0-10.0); NEUT % 91.9 % (50.0-75.0); PLATELET COUNT 292 K/uL (130-400); RBC 3.71 Mil/uL (4.40-5.90)
[2017-12-15 08:15] LABS: ALB/GLOB RATIO 1.3 (1.0-2.1); ALBUMIN 4.1 g/dL (3.5-5.0); CALCIUM 9.2 mg/dl (8.6-10.4)
[2017-12-15 08:25] LABS: ANISOCYTOSIS SLIGHT; BANDS 1 % (0-2); HYPOCHROMIC SLIGHT; LYMPHOCYTE 3 % (20-40); MONOCYTE 3 % (0-10); NEUTROPHIL 93 % (50-75); PLATELET ESTIMATE NORMAL (NORMAL); TOTAL CELLS COUNTED 100
--- NOTE | 2017-12-15 08:29 | CP.PCM.PN ---
Subjective - Date & Time of Evaluation Date of Evaluation: 12/15/17 Time of Evaluation: 08:00 - Subjective Subjective: Pt no complain; angelina foot pain is decrease but now just sore. No CP, no SOB, no edema; (+) urine out put. no dysuria. no diarrhea, m no n/v Objective - Vital Signs/Intake and Output Vital Signs (last 24 hours): Temp Pulse Resp BP Pulse Ox 98.2 F 89 20 139/74 97 12/14/17 23:10 12/14/17 23:10 12/14/17 23:10 12/14/17 23:10 12/14/17 23:10 - Medications Medications: Current Medications Amlodipine Besylate (Norvasc) 5 mg PO DAILY [facility] Last Admin: 12/14/17 09:36 Dose: 5 mg Famotidine (Pepcid) 20 mg PO DAILY [facility] Last Admin: 12/14/17 09:36 Dose: 20 mg Magnesium Oxide (Mag-Ox) 400 mg PO DAILY [facility] Last Admin: 12/14/17 11:11 Dose: 400 mg Potassium Chloride (K-Dur 20 Meq Er Tab) 20 meq PO BRK [facility] Prednisone (Prednisone Tab) 30 mg PO BID [facility] Last Admin: 12/14/17 18:01 Dose: 30 mg - Labs Labs: 12/15/17 07:06 12/15/17 07:06 PT 11.0 SECONDS (9.7-12.2) 12/14/17 00:51 INR 1.0 12/14/17 00:51 APTT 35 SECONDS (21-34) H 12/14/17 00:51 - Constitutional Appears: No Acute Distress - Eye Exam Eye Exam: Normal appearance - ENT Exam ENT Exam: Mucous Membranes Moist - Neck Exam Neck Exam: Full ROM. absent: Lymphadenopathy, Normal Inspection - Respiratory Exam Respiratory Exam: Clear to Ausculation Bilateral. absent: Rales, Rhonchi, Wheezes - Cardiovascular Exam Cardiovascular Exam: REGULAR RHYTHM, +S1, +S2. absent: Diastolic murmur, Gallop , Murmur - GI/Abdominal Exam GI & Abdominal Exam: Soft. absent: Tenderness - Extremities Exam Extremities Exam: Full ROM, Normal Capillary Refill. absent: Calf Tenderness, Joint Swelling, Pedal Edema Assessment and Plan - Assessment and Plan (Free Text) Assessment: Acute Gout; ESRD, HTN For Permacath and HD Cont meds
[2017-12-15] MEDS ORDERED: Sodium Chloride 0.9% 500 ML IV ONE (09:00)
[2017-12-15] MEDS ORDERED: Midazolam 2 MG/2 ML VIAL ONE (09:02)
[2017-12-15] MEDS ORDERED: Propofol 10 mg/ml Inj (20 ML) ONE (09:02)
[2017-12-15] MEDS ORDERED: Lidocaine Hydrochloride 10 ML INJ ONE (09:07)
[2017-12-15] MEDS ORDERED: ceFAZolin 1 gm in NS 1 GM/100 ML BAG IVPB ONE (09:07)
[2017-12-15] MEDS ORDERED: HEPARIN-NS 5,000 UNITS/500 ML 5,000 UNIT/500 ML BAG IV ONE (09:10)
--- NOTE | 2017-12-15 09:52 | PCM.SURG1 ---
Surgeon's Initial Post Op Note - Surgeon's Notes Surgeon: marlee Child Specialist: 0 Type of Anesthesia: IV Sedation Anesthesia Administered By: lisa Pre-Operative Diagnosis: renal failure Operative Findings: cath to svc via right jugular Post-Operative Diagnosis: same Operation Performed: permacath right jugular with us guidance and micropuncture technique Specimen/Specimens Removed: 0 Estimated Blood Loss: EBL {In ML}: 15 Blood Products Given: N/A Drains Used: No Drains Post-Op Condition: Good Date of Surgery/Procedure: 12/15/17 Time of Surgery/Procedure: 09:52
[2017-12-15] MEDS: HYDROmorphone 0.5 mg/0.5 ml ISec IVP PRN ×2 (10:14→10:36)
--- NOTE | 2017-12-15 11:05 | RAD ---
HISTORY: permacath placement COMPARISON: Portable chest 12/14/2017. FINDINGS: LUNGS: A right-sided PermCath is now identified placed by an apparent right internal jugular approach terminating at the right atrium. No active pulmonary disease. PLEURA: No significant pleural effusion identified, no pneumothorax apparent. CARDIOVASCULAR: Chronic silhouette appears somewhat more prominent. No pulmonary vascular congestion appreciable this time. OSSEOUS STRUCTURES: No significant abnormalities. VISUALIZED UPPER ABDOMEN: Normal. OTHER FINDINGS: None. IMPRESSION: Interval right PermCath deployment as discussed above. No pneumothorax bilaterally. Though no infiltrate, pleural effusion or pulmonary vascular congestion although cardiac silhouette appears somewhat more prominent.
--- NOTE | 2017-12-15 11:08 | RAD ---
PROCEDURE: Intraoperative Fluoroscopy. HISTORY: RENAL FAILURE FINDINGS: Fluoroscopic assistance was provided for central venous dialysis catheter deployment. Please refer to the operative report from ANNALISE Duran. 35.7 seconds of fluoroscopy time was utilized with a cumulative radiation dose of 2.61 mGy.
[2017-12-15] MEDS: Magnesium Oxide 400 mg Tab UD PO SCH (11:51)
--- NOTE | 2017-12-15 13:32 | CP.PCM.PN ---
Subjective - Date & Time of Evaluation Date of Evaluation: 12/15/17 Time of Evaluation: 13:29 - Subjective Subjective: Patient agrees for HD now- will schedule today Strongly advised pt to have HD Objective - Vital Signs/Intake and Output Vital Signs (last 24 hours): Temp Pulse Resp BP Pulse Ox 98.2 F 83 12 151/81 H 100 12/15/17 11:15 12/15/17 12:23 12/15/17 11:15 12/15/17 11:48 12/15/17 11:15 - Medications Medications: Current Medications Amlodipine Besylate (Norvasc) 5 mg PO DAILY [facility] Last Admin: 12/15/17 11:52 Dose: 5 mg Famotidine (Pepcid) 20 mg PO DAILY [facility] Last Admin: 12/15/17 11:52 Dose: 20 mg Magnesium Oxide (Mag-Ox) 400 mg PO DAILY [facility] Last Admin: 12/15/17 11:51 Dose: 400 mg Oxycodone/Acetaminophen (Percocet 5/325 Mg Tab) 1 tab PO Q4H PRN PRN Reason: Pain, Mild (1-3) Stop: 12/18/17 10:31 Pneumococcal Polyvalent Vaccine (Pneumovax 23 Vaccine) 0.5 ml IM .ONCE ONE Stop: 12/17/17 12:01 Potassium Chloride (K-Dur 20 Meq Er Tab) 20 meq PO BRK [facility] Prednisone (Prednisone Tab) 30 mg PO BID [facility] Last Admin: 12/15/17 11:51 Dose: 30 mg - Labs Labs: 12/15/17 07:06 12/15/17 07:06 PT 11.0 SECONDS (9.7-12.2) 12/14/17 00:51 INR 1.0 12/14/17 00:51 APTT 35 SECONDS (21-34) H 12/14/17 00:51 - Constitutional Appears: No Acute Distress, Chronically Ill - Head Exam Head Exam: ATRAUMATIC, NORMAL INSPECTION - Eye Exam Eye Exam: EOMI, Normal appearance - Neck Exam Neck Exam: Normal Inspection. absent: Tenderness - Respiratory Exam Respiratory Exam: Clear to Ausculation Bilateral, NORMAL BREATHING PATTERN - Cardiovascular Exam Cardiovascular Exam: REGULAR RHYTHM, +S1 - GI/Abdominal Exam GI & Abdominal Exam: Soft. absent: Tenderness - Extremities Exam Extremities Exam: Normal Inspection. absent: Tenderness - Neurological Exam Neurological Exam: Awake, CN II-XII Intact - Skin Skin Exam: Dry, Warm Assessment and Plan (1) Hereditary nephritis Status: Acute (2) ESRD (end stage renal disease) Status: Acute (3) Hypertension Status: Acute - Assessment and Plan (Free Text) Plan: start HD today Will need AV access
[2017-12-15 16:23] LABS: HEPATITIS B SURFACE AG Negative (NEGATIVE)
[2017-12-15 16:27] LABS: HEPATITIS B CORE AB NEGATIVE (NEGATIVE)
[2017-12-15 16:40] LABS: HEPATITIS C ANTIBODY NEGATIVE (NEGATIVE)
--- NOTE | 2017-12-15 21:25 | OP ---
PROCEDURE DATE: 12/15/2017 PREOPERATIVE DIAGNOSIS: Renal failure. POSTOPERATIVE DIAGNOSIS: Renal failure. PROCEDURE CARRIED OUT: PermCath right jugular vein with C-arm fluoroscopy, ultrasound-guided puncture, and micropuncture technique. SURGEON: Ruel Ocampo Jr., MD ASSISTANTS: None. ANESTHESIOLOGIST: Mr. Chatman, local with sedation. The patient is a young man with renal insufficiency, initially declining dialysis, now hospitalized on an emergent basis to [facility] for placement of PermCath. OPERATIVE FINDINGS: Catheter was inserted uneventfully via the jugular vein. DESCRIPTION OF PROCEDURE: The patient was given local anesthesia. Using ultrasound guidance and micropuncture puncture, the right jugular vein was cannulated. Under fluoroscopic control, a guidewire was advanced centrally. This was exchanged to an 0.035 wire which went into the inferior vena cava. Sheath dilator was passed over this and the catheter position originating on the right chest wall, it was a tunneled catheter, went to the jugular vein, and terminated in the superior vena cava of the right atrium. It was flushed with heparinized saline with excellent return. Blood loss during the procedure was 10 mL. There were no operative complications or problems, and antibiotics were given prior to beginning the procedure. Operation carried out, PermCath right jugular vein with C-arm fluoroscopy and ultrasound-guided puncture. Ultrasound image of the neck showed the vein was 17 mm in diameter with normal compressibility and no intraluminal thrombosis. Ruel Ocampo Jr., MD
--- NOTE | 2017-12-15 23:12 | CARD ---
APPROVED REPORT EKG Measurement Heart [id number] <Conclusion> Sinus rhythm with premature atrial complexes Otherwise normal ECG
--- NOTE | 2017-12-15 23:13 | CARD ---
APPROVED REPORT EKG Measurement Heart [id number] <Conclusion> Sinus tachycardia with premature atrial complexes Minimal voltage criteria for LVH, may be normal variant Borderline ECG
--- NOTE | 2017-12-16 07:24 | CP.PCM.PN ---
Subjective - Date & Time of Evaluation Date of Evaluation: 12/16/17 Time of Evaluation: 07:22 - Subjective Subjective: Surgery note for DR. ANTHONY 42M seen and examined at bedside. s/p permacath. Patient denies pain or any issues at the site. Objective - Vital Signs/Intake and Output Vital Signs (last 24 hours): Temp Pulse Resp BP Pulse Ox 98.2 F 106 H 20 152/81 H 97 12/16/17 05:30 12/16/17 05:30 12/16/17 05:30 12/16/17 05:30 12/16/17 05:30 Intake and Output: 12/16/17 12/16/17 06:59 18:59 Output Total 800 Balance -800 - Medications Medications: Current Medications Amlodipine Besylate (Norvasc) 5 mg PO DAILY [facility] Last Admin: 12/15/17 11:52 Dose: 5 mg Famotidine (Pepcid) 20 mg PO DAILY [facility] Last Admin: 12/15/17 11:52 Dose: 20 mg Magnesium Oxide (Mag-Ox) 400 mg PO DAILY [facility] Last Admin: 12/15/17 11:51 Dose: 400 mg Oxycodone/Acetaminophen (Percocet 5/325 Mg Tab) 1 tab PO Q4H PRN PRN Reason: Pain, Mild (1-3) Stop: 12/18/17 10:31 Pneumococcal Polyvalent Vaccine (Pneumovax 23 Vaccine) 0.5 ml IM .ONCE ONE Stop: 12/17/17 12:01 Potassium Chloride (K-Dur 20 Meq Er Tab) 20 meq PO BRK [facility] Prednisone (Prednisone Tab) 30 mg PO BID [facility] Last Admin: 12/15/17 20:26 Dose: Not Given - Labs Labs: 12/15/17 07:06 12/15/17 07:06 PT 11.0 SECONDS (9.7-12.2) 12/14/17 00:51 INR 1.0 12/14/17 00:51 APTT 35 SECONDS (21-34) H 12/14/17 00:51 - Constitutional Appears: Non-toxic, No Acute Distress - Neck Exam Additional comments: permacath in place. dressing CDI - Respiratory Exam Respiratory Exam: Clear to Ausculation Bilateral, NORMAL BREATHING PATTERN - Cardiovascular Exam Cardiovascular Exam: REGULAR RHYTHM, +S1, +S2 - GI/Abdominal Exam GI & Abdominal Exam: Soft. absent: Firm, Guarding, Rigid, Tenderness, Rebound Assessment and Plan - Assessment and Plan (Free Text) Assessment: 42M S/P Permacath placement POD1 Plan: - Vein mapping - Dressing changes Further recs discuss with Dr. Terrence Burden, PGY2
[2017-12-16] MEDS: Potassium Chloride 20 mEq ER Tab PO SCH (08:54)
[2017-12-16] MEDS: Magnesium Oxide 400 mg Tab UD PO SCH (10:26)
--- NOTE | 2017-12-16 10:56 | CP.PCM.PN ---
Subjective - Date & Time of Evaluation Date of Evaluation: 12/16/17 Time of Evaluation: 10:53 - Subjective Subjective: stable dialysis 12/15 c/o dizziness at times phos very elevated Objective - Vital Signs/Intake and Output Vital Signs (last 24 hours): Temp Pulse Resp BP Pulse Ox 98.4 F 94 H 18 157/89 H 98 12/16/17 09:22 12/16/17 10:25 12/16/17 09:22 12/16/17 10:25 12/16/17 09:22 Intake and Output: 12/16/17 12/16/17 06:59 18:59 Output Total 800 Balance -800 - Medications Medications: Current Medications Amlodipine Besylate (Norvasc) 5 mg PO DAILY [facility] Last Admin: 12/16/17 10:27 Dose: 5 mg Famotidine (Pepcid) 20 mg PO DAILY [facility] Last Admin: 12/16/17 10:26 Dose: 20 mg Magnesium Oxide (Mag-Ox) 400 mg PO DAILY [facility] Last Admin: 12/16/17 10:26 Dose: 400 mg Oxycodone/Acetaminophen (Percocet 5/325 Mg Tab) 1 tab PO Q4H PRN PRN Reason: Pain, Mild (1-3) Stop: 12/18/17 10:31 Pneumococcal Polyvalent Vaccine (Pneumovax 23 Vaccine) 0.5 ml IM .ONCE ONE Stop: 12/17/17 12:01 Potassium Chloride (K-Dur 20 Meq Er Tab) 20 meq PO BRK [facility] Last Admin: 12/16/17 08:54 Dose: 20 meq Prednisone (Prednisone Tab) 30 mg PO BID [facility] Last Admin: 12/16/17 10:31 Dose: Not Given - Labs Labs: 12/15/17 07:06 12/15/17 07:06 PT 11.0 SECONDS (9.7-12.2) 12/14/17 00:51 INR 1.0 12/14/17 00:51 APTT 35 SECONDS (21-34) H 12/14/17 00:51 - Constitutional Appears: No Acute Distress, Chronically Ill - Head Exam Head Exam: ATRAUMATIC, NORMAL INSPECTION - Eye Exam Eye Exam: EOMI, Normal appearance - Neck Exam Neck Exam: Normal Inspection. absent: Tenderness - Respiratory Exam Respiratory Exam: Clear to Ausculation Bilateral, NORMAL BREATHING PATTERN - Cardiovascular Exam Cardiovascular Exam: REGULAR RHYTHM, +S1 - GI/Abdominal Exam GI & Abdominal Exam: Soft. absent: Tenderness - Extremities Exam Extremities Exam: Normal Inspection. absent: Tenderness - Neurological Exam Neurological Exam: Awake, CN II-XII Intact - Skin Skin Exam: Dry, Warm Assessment and Plan (1) Hereditary nephritis Status: Acute (2) ESRD (end stage renal disease) Status: Acute (3) Hypertension Status: Acute - Assessment and Plan (Free Text) Plan: dialysis TTS increase phos binders will need AV access needs outpt dialysis placement
--- NOTE | 2017-12-16 18:54 | CP.PCM.PN ---
Subjective - Date & Time of Evaluation Date of Evaluation: 12/16/17 Time of Evaluation: 18:51 - Subjective Subjective: S: Feels better Objective - Vital Signs/Intake and Output Vital Signs (last 24 hours): Temp Pulse Resp BP Pulse Ox 98.4 F 97 H 20 145/91 H 98 12/16/17 16:19 12/16/17 16:19 12/16/17 16:19 12/16/17 16:19 12/16/17 16:19 Intake and Output: 12/16/17 12/16/17 06:59 18:59 Intake Total 350 Output Total 800 Balance -800 350 - Medications Medications: Current Medications Calcium Acetate (Phoslo) 667 mg PO TIDCC [facility] Last Admin: 12/16/17 18:14 Dose: 667 mg Famotidine (Pepcid) 20 mg PO DAILY [facility] Last Admin: 12/16/17 10:26 Dose: 20 mg Magnesium Oxide (Mag-Ox) 400 mg PO DAILY [facility] Last Admin: 12/16/17 10:26 Dose: 400 mg Oxycodone/Acetaminophen (Percocet 5/325 Mg Tab) 1 tab PO Q4H PRN PRN Reason: Pain, Mild (1-3) Stop: 12/18/17 10:31 Pneumococcal Polyvalent Vaccine (Pneumovax 23 Vaccine) 0.5 ml IM .ONCE ONE Stop: 12/17/17 12:01 Potassium Chloride (K-Dur 20 Meq Er Tab) 20 meq PO BRK [facility] Last Admin: 12/16/17 08:54 Dose: 20 meq Prednisone (Prednisone Tab) 30 mg PO DAILY [facility] - Labs Labs: 12/15/17 07:06 12/15/17 07:06 PT 11.0 SECONDS (9.7-12.2) 12/14/17 00:51 INR 1.0 12/14/17 00:51 APTT 35 SECONDS (21-34) H 12/14/17 00:51 - Constitutional Appears: Non-toxic - Head Exam Head Exam: NORMAL INSPECTION - Eye Exam Eye Exam: Normal appearance - ENT Exam ENT Exam: Normal Exam - Neck Exam Neck Exam: Normal Inspection - Respiratory Exam Respiratory Exam: NORMAL BREATHING PATTERN - Cardiovascular Exam Cardiovascular Exam: REGULAR RHYTHM - GI/Abdominal Exam GI & Abdominal Exam: Soft - Rectal Exam Rectal Exam: Deferred - Extremities Exam Extremities Exam: Normal Inspection (Chest dialysis catheter noted) - Neurological Exam Neurological Exam: Alert Assessment and Plan (1) Hereditary nephritis Status: Acute (2) Renal failure Status: Acute - Assessment and Plan (Free Text) Assessment: A/P: Continue medications. Appreciate Nephrology notes
[2017-12-16] MEDS: Oxycodone/Acetaminophen 5/325 mg Tab PO PRN (23:13)
[2017-12-17] MEDS: Oxycodone/Acetaminophen 5/325 mg Tab PO PRN (05:36)
[2017-12-17 06:52] LABS: BASO # 0.1 K/uL (0.0-0.2); BASO % 0.5 % (0.0-2.0); EOS # 0.2 K/uL (0.0-0.7); EOS % 1.2 % (0.0-4.0); HEMOGLOBIN 10.8 g/dL (12.0-18.0); LYMPH # 3.3 K/uL (1.0-4.3); LYMPH % 23.4 % (20.0-40.0); MEAN CORPUSCULAR HEMOGLOBIN 26.1 pg (27.0-31.0); MEAN CORPUSCULAR HGB CONC 33.1 g/dL (33.0-37.0); MEAN PLATELET VOLUME 7.2 fL (7.2-11.7); MONO # 1.9 K/uL (0.0-0.8); MONO % 13.6 % (0.0-10.0); NEUT # 8.5 K/uL (1.8-7.0); NEUT % 61.3 % (50.0-75.0); RBC 4.12 Mil/uL (4.40-5.90); RED CELL DISTRIBUTION WIDTH 16.2 % (11.5-14.5); WHITE BLOOD COUNT 13.9 K/uL (4.8-10.8)
[2017-12-17 07:02] LABS: ALB/GLOB RATIO 1.1 (1.0-2.1); ALBUMIN 3.8 g/dL (3.5-5.0); CALCIUM 8.8 mg/dl (8.6-10.4)
[2017-12-17] MEDS ORDERED: Oxycodone/Acetaminophen 5/325 mg Tab PO PRN (08:03)
--- NOTE | 2017-12-17 08:07 | CP.PCM.PN ---
Subjective - Date & Time of Evaluation Date of Evaluation: 12/17/17 Time of Evaluation: 07:56 - Subjective Subjective: Pt w/ severe R Elbow pain and L foot; Started last night and unable to move No CP. no SOB, no cough, no n/v, no diarrhea Objective - Vital Signs/Intake and Output Vital Signs (last 24 hours): Temp Pulse Resp BP Pulse Ox 98.6 F 80 20 154/83 H 99 12/16/17 23:10 12/17/17 04:34 12/16/17 23:10 12/16/17 23:10 12/16/17 23:10 Intake and Output: 12/17/17 12/17/17 06:59 18:59 Output Total 550 Balance -550 - Medications Medications: Current Medications Calcium Acetate (Phoslo) 667 mg PO TIDCC [facility] Last Admin: 12/16/17 18:14 Dose: 667 mg Famotidine (Pepcid) 20 mg PO DAILY [facility] Last Admin: 12/16/17 10:26 Dose: 20 mg Potassium Chloride (Potassium Chloride 20 Meq/100 Ml) 20 meq in 100 mls @ 50 mls/hr IVPB ONCE ONE Stop: 12/17/17 09:44 Potassium Chloride (Potassium Chloride 20 Meq/100 Ml) 20 meq in 100 mls @ 50 mls/hr IVPB ONCE ONE Stop: 12/17/17 09:45 Magnesium Oxide (Mag-Ox) 400 mg PO DAILY [facility] Last Admin: 12/16/17 10:26 Dose: 400 mg Oxycodone/Acetaminophen (Percocet 5/325 Mg Tab) 1 tab PO Q4H PRN PRN Reason: Pain, Mild (1-3) Stop: 12/18/17 10:31 Last Admin: 12/17/17 05:36 Dose: 1 tab Oxycodone/Acetaminophen (Percocet 5/325 Mg Tab) 1 tab PO Q6H PRN PRN Reason: Pain, severe (8-10) Stop: 12/20/17 08:04 Pneumococcal Polyvalent Vaccine (Pneumovax 23 Vaccine) 0.5 ml IM .ONCE ONE Stop: 12/17/17 12:01 Potassium Chloride (K-Dur 20 Meq Er Tab) 20 meq PO BRK [facility] Last Admin: 12/16/17 08:54 Dose: 20 meq Prednisolone (Prednisolone) 30 mg PO BID [facility] - Labs Labs: 06/22/18 06:34 12/17/17 06:34 PT 11.0 SECONDS (9.7-12.2) 12/14/17 00:51 INR 1.0 12/14/17 00:51 APTT 35 SECONDS (21-34) H 12/14/17 00:51 - Constitutional Appears: No Acute Distress - Eye Exam Eye Exam: Normal appearance - ENT Exam ENT Exam: Mucous Membranes Moist - Neck Exam Neck Exam: Full ROM. absent: Lymphadenopathy, Normal Inspection - Respiratory Exam Respiratory Exam: Decreased Breath Sounds. absent: Rales, Rhonchi, Wheezes - Cardiovascular Exam Cardiovascular Exam: +S1, +S2, Murmur. absent: Gallop, REGULAR RHYTHM, JVD - GI/Abdominal Exam GI & Abdominal Exam: Soft. absent: Tenderness, Mass - Extremities Exam Extremities Exam: Full ROM, Joint Swelling, Normal Capillary Refill Assessment and Plan - Assessment and Plan (Free Text) Assessment: R Elbow Bursitis vs Gout; ESRD Ac Gout of L foot; HTN, K losing Nephropathy Refer to ortho for Arthro[employer]esis [employer] Predniosone and Percocet, prn Cont supportive care
[2017-12-17] MEDS: Potassium Chloride 20 mEq ER Tab PO SCH (08:43)
[2017-12-17] MEDS: PrednisoLONE 6 MG/2 ML SYR PO SCH ×3 (10:56→19:04)
[2017-12-17] MEDS: Magnesium Oxide 400 mg Tab UD PO SCH (10:56)
[2017-12-17] MEDS ORDERED: Midazolam 2 MG/2 ML VIAL ONE (11:59)
[2017-12-17] MEDS ORDERED: Pneumococcal 23-Valent Vaccine IM ONE (12:00)
[2017-12-17] MEDS ORDERED: Propofol 10 mg/ml Inj (20 ML) ONE (12:00)
[2017-12-17] MEDS ORDERED: ceFAZolin IV 1 gm in Dextrose 0 GM/0 ML BAG IVPB ONE (12:01)
[2017-12-17] MEDS ORDERED: HEPARIN-NS 5,000 UNITS/500 ML 0 UNIT/0 ML BAG IV ONE (12:01)
[2017-12-17] MEDS ORDERED: Lidocaine Hydrochloride 0 ML INJ ONE (12:01)
--- NOTE | 2017-12-17 12:12 | CP.PCM.PN ---
Subjective - Date & Time of Evaluation Date of Evaluation: 12/17/17 Time of Evaluation: 12:11 - Subjective Subjective: avf postponed due to fever suspected issue with r elbow joint dw Dr Card Objective - Vital Signs/Intake and Output Vital Signs (last 24 hours): Temp Pulse Resp BP Pulse Ox 97.9 F 111 H 18 121/67 99 12/17/17 09:20 12/17/17 09:20 12/17/17 09:20 12/17/17 09:20 12/17/17 09:20 Intake and Output: 12/17/17 12/17/17 06:59 18:59 Output Total 550 Balance -550 - Medications Medications: Current Medications Calcium Acetate (Phoslo) 667 mg PO TIDCC [facility] Last Admin: 12/17/17 11:50 Dose: Not Given Famotidine (Pepcid) 20 mg PO DAILY [facility] Last Admin: 12/17/17 10:56 Dose: Not Given Magnesium Oxide (Mag-Ox) 400 mg PO DAILY [facility] Last Admin: 12/17/17 10:56 Dose: Not Given Oxycodone/Acetaminophen (Percocet 5/325 Mg Tab) 1 tab PO Q4H PRN PRN Reason: Pain, Mild (1-3) Stop: 12/18/17 10:31 Last Admin: 12/17/17 05:36 Dose: 1 tab Potassium Chloride (K-Dur 20 Meq Er Tab) 20 meq PO BRK [facility] Last Admin: 12/17/17 08:43 Dose: Not Given Prednisolone (Prednisolone) 30 mg PO BID [facility] Last Admin: 12/17/17 10:56 Dose: Not Given - Labs Labs: 12/17/17 06:34 12/17/17 06:34 PT 11.0 SECONDS (9.7-12.2) 12/14/17 00:51 INR 1.0 12/14/17 00:51 APTT 35 SECONDS (21-34) H 12/14/17 00:51
--- NOTE | 2017-12-17 12:17 | CP.PCM.PN ---
Subjective - Date & Time of Evaluation Date of Evaluation: 12/17/17 Time of Evaluation: 12:14 - Subjective Subjective: ORtho Dr. Vazquez, full consult to follow. Patient complaining of acute onset of right elbow and left ankle pain last night. He says he has history of gout in both feet/ankles, but not in elbow. He also complains of back pain. He says he feels a little better than last night. He denies pain in other joints at this time. He denies any trauma/falls. Denies any wounds/fever/chills. Objective - Vital Signs/Intake and Output Vital Signs (last 24 hours): Temp Pulse Resp BP Pulse Ox 97.9 F 111 H 18 121/67 99 12/17/17 09:20 12/17/17 09:20 12/17/17 09:20 12/17/17 09:20 12/17/17 09:20 Intake and Output: 12/17/17 12/17/17 06:59 18:59 Output Total 550 Balance -550 - Medications Medications: Current Medications Calcium Acetate (Phoslo) 667 mg PO TIDCC [facility] Last Admin: 12/17/17 11:50 Dose: Not Given Famotidine (Pepcid) 20 mg PO DAILY [facility] Last Admin: 12/17/17 10:56 Dose: Not Given Magnesium Oxide (Mag-Ox) 400 mg PO DAILY [facility] Last Admin: 12/17/17 10:56 Dose: Not Given Oxycodone/Acetaminophen (Percocet 5/325 Mg Tab) 1 tab PO Q4H PRN PRN Reason: Pain, Mild (1-3) Stop: 12/18/17 10:31 Last Admin: 12/17/17 05:36 Dose: 1 tab Potassium Chloride (K-Dur 20 Meq Er Tab) 20 meq PO BRK [facility] Last Admin: 12/17/17 08:43 Dose: Not Given Prednisolone (Prednisolone) 30 mg PO BID [facility] Last Admin: 12/17/17 10:56 Dose: Not Given - Labs Labs: 12/17/17 06:34 12/17/17 06:34 PT 11.0 SECONDS (9.7-12.2) 12/14/17 00:51 INR 1.0 12/14/17 00:51 APTT 35 SECONDS (21-34) H 12/14/17 00:51 - Extremities Exam Additional comments: Right elbow: mild swelling, warm compared to surrounding area, no erythema, small effusion, pain with attempts at any ROM of elbow, generalized tenderness to elbow, IV line in forearm, forearm soft, no infiltration, +ROM wrist/fingers , sensation intact, +radial pulse, no deformity or discoloration, skin intact Left ankle: mild swelling, warm, no erythema, full ROM but painful, skin intact , +DP/PT pulses, sensation intact, calves soft NT neg homans, no deformity or discoloration Assessment and Plan (1) Acute gout due to renal impairment involving elbow Assessment & Plan: started on PO steroids by Dr. Card this am no significant effusion to indicate need for aspiration today, patient has history of gout, and although patient denies, prior visit 03/2016 he was complaining of left elbow pain and swelling (along with ankle pain at that time also) so this increases suspicion of acute gout afebrile follow improvement with PO steroids at this time per Dr. Vazquez pain medication PT/OT when appropriate check xrays and serum uric acid (pt to OR for IV access) D/w Dr. Vazquez, agrees with above Status: Acute (2) Acute gout due to renal impairment involving ankle Status: Acute
--- NOTE | 2017-12-17 15:04 | CP.PCM.PN ---
Subjective - Date & Time of Evaluation Date of Evaluation: 12/17/17 Time of Evaluation: 15:01 - Subjective Subjective: had fevers; c/o bilateral foot pains and severe left elbow pain gout highly suspected and steroids ordered due for dialysis today BP controlled AV access surgery on hold Objective - Vital Signs/Intake and Output Vital Signs (last 24 hours): Temp Pulse Resp BP Pulse Ox 97.9 F 107 H 18 121/67 99 12/17/17 09:20 12/17/17 11:23 12/17/17 09:20 12/17/17 09:20 12/17/17 09:20 Intake and Output: 12/17/17 12/17/17 06:59 18:59 Output Total 550 Balance -550 - Medications Medications: Current Medications Calcium Acetate (Phoslo) 667 mg PO TIDCC [facility] Last Admin: 12/17/17 11:50 Dose: Not Given Cephalexin Monohydrate (Keflex) 500 mg PO BID [facility] PRN Reason: Protocol Famotidine (Pepcid) 20 mg PO DAILY [facility] Last Admin: 12/17/17 10:56 Dose: Not Given Magnesium Oxide (Mag-Ox) 400 mg PO DAILY [facility] Last Admin: 12/17/17 10:56 Dose: Not Given Oxycodone/Acetaminophen (Percocet 5/325 Mg Tab) 1 tab PO Q4H PRN PRN Reason: Pain, Mild (1-3) Stop: 12/18/17 10:31 Last Admin: 12/17/17 05:36 Dose: 1 tab Potassium Chloride (K-Dur 20 Meq Er Tab) 20 meq PO BRK [facility] Last Admin: 12/17/17 08:43 Dose: Not Given Prednisolone (Prednisolone) 30 mg PO BID [facility] Last Admin: 12/17/17 10:56 Dose: Not Given - Labs Labs: 12/17/17 06:34 12/17/17 06:34 PT 11.0 SECONDS (9.7-12.2) 12/14/17 00:51 INR 1.0 12/14/17 00:51 APTT 35 SECONDS (21-34) H 12/14/17 00:51 - Constitutional Appears: In Acute Distress, Chronically Ill - Head Exam Head Exam: ATRAUMATIC, NORMAL INSPECTION - Eye Exam Eye Exam: EOMI, Normal appearance - Neck Exam Neck Exam: Normal Inspection. absent: Tenderness - Respiratory Exam Respiratory Exam: Clear to Ausculation Bilateral, NORMAL BREATHING PATTERN - Cardiovascular Exam Cardiovascular Exam: REGULAR RHYTHM, +S1 - GI/Abdominal Exam GI & Abdominal Exam: Soft. absent: Tenderness - Extremities Exam Extremities Exam: Normal Inspection. absent: Tenderness - Neurological Exam Neurological Exam: Alert, CN II-XII Intact - Skin Skin Exam: Dry, Warm Assessment and Plan (1) Hereditary nephritis Status: Acute (2) ESRD (end stage renal disease) Status: Acute (3) Hypertension Status: Acute (4) Acute gout Status: Acute - Assessment and Plan (Free Text) Plan: dialysis now and then MWF increase to 4K dialysis bath steroids for gout await new schedule - AV access
[2017-12-17] MEDS ORDERED: MethylPREDNISolone 40 mg Vial IVP ONE ×2 (15:30→21:00)
--- NOTE | 2017-12-17 15:30 | RAD ---
PROCEDURE: Left Ankle Radiographs. HISTORY: Ankle pain COMPARISON: Comparison made with prior radiographs left ankle dated 11/28/2013 FINDINGS: BONES: No evidence of acute displaced fracture nor dislocation. Re- demonstrated is a small elliptical shaped corticated the bony density within the soft tissues subjacent to the inferior tip of the mid lateral malleolus consistent with either old unfused avulsion fracture or post traumatic mineralization however the former is favored. Note made of a small posterior calcaneal enthesophyte. JOINTS: Normal. No osteoarthritis. Ankle mortise maintained. Talar dome intact SOFT TISSUES: There is soft tissue density seen in Kager's fat space consistent with a small joint effusion OTHER FINDINGS: None. IMPRESSION: No evidence of acute displaced fracture nor dislocation. Re- demonstrated is a small elliptical shaped corticated the bony density within the soft tissues subjacent to the inferior tip of the mid lateral malleolus consistent with either old unfused avulsion fracture or post traumatic mineralization however the former is favored. Note made of a small posterior calcaneal enthesophyte.
--- NOTE | 2017-12-17 15:50 | RAD ---
PROCEDURE: Radiographs of the right elbow. HISTORY: Elbow pain COMPARISON: No prior. FINDINGS: BONES: Normal. No fracture. JOINTS: Normal. No osteoarthritis. SOFT TISSUES: Normal. JOINT EFFUSION: None. OTHER FINDINGS: In situ angiocatheter is present. IMPRESSION: No evidence of acute displaced fracture nor dislocation.
--- NOTE | 2017-12-17 16:04 | VASCLAB ---
PROCEDURE: Upper Extremity Venous Mapping HISTORY: Chronic Kidney Disease, Vein Mapping, Pre-op AV Fistula. PRIORS: None. TECHNIQUE: Bilateral upper extremity, internal jugular, subclavian, axillary, brachial, ulnar, radial, basilic and upper cephalic veins were evaluated. Flow was assessed with color Doppler, compressibility, assessment of phasic flow and augmentation response. Report prepared by BRITTANY Figueroa FINDINGS: RIGHT: 1. Internal Jugular Vein: Perma cath in place 2. Subclavian Vein: Perma cath in place 3. Axillary Vein: Compressibility - Fully compressible: Thrombus - None 4. Brachial Vein: Compressibility - Fully compressible: Thrombus - None 5. Ulnar Vein:Compressibility - Fully compressible: Thrombus - None 6. Radial Vein:Compressibility - Fully compressible: Thrombus - None 7. Cephalic Vein: Compressibility - Fully compressible: thrombus - None 7.1. Upper Arm: Proximal Diameter: 0.37cm. Mid Diameter: 0.29cm. Distal Diameter: 0.14cm. Branch at distal upper arm 0.28cm 7.2. Forearm: Proximal Diameter: 0.24cm. Mid Diameter:0.18cm. Distal Diameter: 0.12cm 8. Basilic Vein:Compressibility - Fully compressible: thrombus - None 8.1. Upper Arm:Proximal Diameter: 0.44cm. Mid Diameter: 0.38cm. Distal Diameter: 0.19cm. 8.2. Forearm: Proximal Diameter: 0.10cm. Mid Diameter:0.16cm. Distal Diameter: 0.12cm. LEFT: 1. Internal Jugular Vein: Compressibility - Fully compressible: Thrombus - None : Flow - Phasic 2. Subclavian Vein:Compressibility - Fully compressible: Thrombus - None : Flow - Phasic 3. Axillary Vein: Compressibility - Fully compressible: Thrombus - None 4. Brachial Vein: Compressibility - Fully compressible: Thrombus - None 5. Ulnar Vein:Compressibility - Fully compressible: Thrombus - None 6. Radial Vein:Compressibility - Fully compressible: Thrombus - None 7. Cephalic Vein: Compressibility - Fully compressible: thrombus - None 7.1. Upper Arm: Proximal Diameter: 0.46cm. Mid Diameter: 0.36cm. Distal Diameter: 0.45cm. 7.2. Forearm: Proximal Diameter: 0.24cm. Mid Diameter:0.27cm. Distal Diameter: 0.20cm 8. Basilic Vein:Compressibility - Fully compressible: thrombus - None 8.1. Upper Arm:Proximal Diameter: 0.59cm. Mid Diameter: 0.56cm. Distal Diameter: 0.37cm. 8.2. Forearm:not visible. OTHER FINDINGS: Right: None. Left: None. IMPRESSION: 1. Please refer to the above listed measurements for vein sizes. 2. No evidence of venous thrombosis in bilateral upper extremities.
[2017-12-17] MEDS ORDERED: Bupivacaine 0.25% Inj(30mL) IJ ONE (17:30)
[2017-12-17] MEDS ORDERED: Triamcinolone Acetonide 40 mg/mL Inj IAA ONE ×2 (17:30)
--- NOTE | 2017-12-17 18:16 | CP.PCM.CON ---
History of Present Illness - History of Present Illness History of Present Illness: Orthopedic Consultation for Dr. Vazquez. 42 M complaining of acute onset of left ankle and right elbow pain since last night. Patient denies any history of injury or trauma. Patient states he has a history of gout in both feet and ankles. Patient states the pain is progressively getting worse and has most pain with movement of the left ankle and right elbow. He denies pain in any other joints. Patient is currently getting dialysis. Review of Systems - Review of Systems All systems: reviewed and no additional remarkable complaints except Review of Systems: + left ankle pain + right elbow pain Past Patient History - Infectious Disease Hx of Infectious Diseases: None - Past Medical History & Family History Past Medical History?: Yes - Past Social History Smoking Status: Never Smoked - CARDIAC Hx Hypercholesterolemia: Yes - PULMONARY Hx Respiratory Disorders: No Hx Tuberculosis: No - NEUROLOGICAL HX Cerebrovascular Accident: No - HEENT Hx HEENT Problems: No - RENAL Hx Chronic Kidney Disease: No - ENDOCRINE/METABOLIC Hx Endocrine Disorders: No - HEMATOLOGICAL/ONCOLOGICAL Hx Blood Disorders: No Hx Cancer: No - INTEGUMENTARY Hx Dermatological Problems: No - MUSCULOSKELETAL/RHEUMATOLOGICAL Hx Musculoskeletal Disorders: No Hx Falls: No - GASTROINTESTINAL Hx Gastrointestinal Disorders: No - GENITOURINARY/GYNECOLOGICAL Hx Genitourinary Disorders: No - PSYCHIATRIC Hx Substance Use: No - SURGICAL HISTORY Hx Surgeries: No - ANESTHESIA Hx Anesthesia: No Hx Anesthesia Reactions: No Hx Malignant Hyperthermia: No Meds Allergies/Adverse Reactions: Allergies Allergy/AdvReac Type Severity Reaction Status Date / Time No Known Allergies Allergy Verified 12/07/17 05:01 - Medications Medications: Current Medications Bupivacaine HCl (Marcaine 0.25%) 0.25 ml IJ ONCE ONE Stop: 12/17/17 16:19 Calcium Acetate (Phoslo) 667 mg PO TIDCC [facility] Last Admin: 12/17/17 11:50 Dose: Not Given Cephalexin Monohydrate (Keflex) 500 mg PO BID [facility] PRN Reason: Protocol Famotidine (Pepcid) 20 mg PO DAILY [facility] Last Admin: 12/17/17 10:56 Dose: Not Given Magnesium Oxide (Mag-Ox) 400 mg PO DAILY [facility] Last Admin: 12/17/17 10:56 Dose: Not Given Oxycodone/Acetaminophen (Percocet 5/325 Mg Tab) 1 tab PO Q4H PRN PRN Reason: Pain, Mild (1-3) Stop: 12/18/17 10:31 Last Admin: 12/17/17 05:36 Dose: 1 tab Potassium Chloride (K-Dur 20 Meq Er Tab) 20 meq PO BRK [facility] Last Admin: 12/17/17 08:43 Dose: Not Given Prednisolone (Prednisolone) 30 mg PO BID [facility] Last Admin: 12/17/17 10:56 Dose: Not Given Triamcinolone Acetonide (Kenalog-40 Inj) 40 mg IAA ONCE ONE Stop: 12/17/17 16:20 Physical Exam - Extremities Exam Additional comments: On examination, patient is alert and awake, currently getting dialysis. Evaluation of the left ankle shows the skin is intact. There is no obvious deformity. There is mild swelling. Warm to touch. There is no erythema noted. Diffuse tenderness to palpation. +AROM with pain. Thigh and calf are soft and nontender. NVI distally. Evaluation of the right elbow shows the skin is intact. There is no erythema or obvious deformity. There is minimal swelling. Warm to touch. Generalized tenderness to palpation of the elbow joint. Pain with attempted range of motion of the elbow. IV line is in forearm, which is soft and nontender. +AROM wrist and fingers. Sensation intact. Neurovascularly he is intact distally. Results - Vital Signs Recent Vital Signs: Last Vital Signs Temp 100.2 F H 12/17/17 15:15 Pulse 115 H 12/17/17 15:15 Resp 16 12/17/17 15:05 BP 154/102 H 12/17/17 15:30 Pulse Ox 97 12/17/17 15:15 - Labs Result Diagrams: 12/17/17 06:34 12/17/17 06:34 Labs: Laboratory Results - last 24 hr 12/17/17 12/17/17 12/17/17 06:34 06:34 15:49 WBC 13.9 H RBC 4.12 L Hgb 10.8 L Hct 32.5 L MCV 79.0 L MCH 26.1 L MCHC 33.1 RDW 16.2 H Plt Count 281 MPV 7.2 Neut % (Auto) 61.3 Lymph % (Auto) 23.4 Randall % (Auto) 13.6 H Eos % (Auto) 1.2 Baso % (Auto) 0.5 Neut # (Auto) 8.5 H Lymph # (Auto) 3.3 Randall # (Auto) 1.9 H Eos # (Auto) 0.2 Baso # (Auto) 0.1 Sodium 141 Potassium 3.0 L Chloride 99 Carbon Dioxide 26 Anion Gap 19 BUN 61 H Creatinine 6.8 H Est GFR ( Amer) 11 Est GFR (Non-Af Amer) 9 Random Glucose 98 Uric Acid 7.3 Calcium 8.8 Total Bilirubin 0.5 AST 27 ALT 28 Alkaline Phosphatase 78 Total Protein 7.2 Albumin 3.8 Globulin 3.4 Albumin/Globulin Ratio 1.1 - Impressions Impression: Accession No. : [id number] Patient Name / ID : SAVI MARCIAL / [id number] Exam Date : 12/17/2017 14:25:24 ( Approved ) Study Comment : Sex / Age : M / 42Y Creator : Piyush Moran MD Dictator : Passenger Attendant : Staff Nuclear Weapons Officer : Piyush Moran MD Approver2 : Report Date : 12/17/2017 15:23:44 My Comment : PROCEDURE: Left Ankle Radiographs. HISTORY: Ankle pain COMPARISON: Comparison made with prior radiographs left ankle dated 11/28/2013 IMPRESSION: No evidence of acute displaced fracture nor dislocation. Re- demonstrated is a small elliptical shaped corticated the bony density within the soft tissues subjacent to the inferior tip of the mid lateral malleolus consistent with either old unfused avulsion fracture or post traumatic mineralization however the former is favored. Note made of a small posterior calcaneal enthesophyte. Accession No. : [id number] Patient Name / ID : SAVI MARCIAL / [id number] Exam Date : 12/17/2017 14:25:24 ( Approved ) Study Comment : Sex / Age : M / 42Y Creator : Piyush Moran MD Dictator : Passenger Attendant : Staff Nuclear Weapons Officer : Piyush Moran MD Approver2 : Report Date : 12/17/2017 15:48:30 My Comment : PROCEDURE: Radiographs of the right elbow. HISTORY: Elbow pain COMPARISON: No prior. FINDINGS: BONES: Normal. No fracture. JOINTS: Normal. No osteoarthritis. SOFT TISSUES: Normal. JOINT EFFUSION: None. OTHER FINDINGS: In situ angiocatheter is present. IMPRESSION: No evidence of acute displaced fracture nor dislocation. Assessment & Plan (1) Acute gout due to renal impairment involving ankle Status: Acute (2) Acute gout due to renal impairment involving elbow Assessment and Plan: Patient is afebrile. WBC is slightly elevated at 13.9. Serum uric acid level 7.3 At this time there is no clinical suspicion for an infection. There is no signifcant effusion to indicate the need for an aspiration of the elbow or ankle at this time. Patient is already currently started with PO steroids. We will continue with the PO steroids and monitor clinically. Will consider an intra-articular injection if there is no improvement. Discussed with Dr. Vazquez, agrees with above. Status: Acute
[2017-12-18] MEDS: Potassium Chloride 20 mEq ER Tab PO SCH (08:57)
[2017-12-18] MEDS: PrednisoLONE 6 MG/2 ML SYR PO SCH ×2 (09:01→18:08)
[2017-12-18] MEDS: Magnesium Oxide 400 mg Tab UD PO SCH (09:01)
--- NOTE | 2017-12-18 09:40 | CP.PCM.PN ---
Subjective - Date & Time of Evaluation Date of Evaluation: 12/18/17 Time of Evaluation: 09:37 - Subjective Subjective: s/p dialysis 12/17- tolerated well gout better with steroids HTN controlled Feeling better overall Objective - Vital Signs/Intake and Output Vital Signs (last 24 hours): Temp Pulse Resp BP Pulse Ox 98.4 F 95 H 20 154/83 H 97 12/18/17 07:05 12/18/17 07:07 12/18/17 07:05 12/18/17 07:05 12/18/17 07:05 Intake and Output: 12/18/17 12/18/17 06:59 18:59 Intake Total 300 Output Total 500 Balance -200 - Medications Medications: Current Medications Calcium Acetate (Phoslo) 667 mg PO TIDCC [facility] Last Admin: 12/18/17 09:01 Dose: 667 mg Cephalexin Monohydrate (Keflex) 500 mg PO BID [facility] PRN Reason: Protocol Last Admin: 12/18/17 09:01 Dose: 500 mg Famotidine (Pepcid) 20 mg PO DAILY [facility] Last Admin: 12/18/17 09:01 Dose: 20 mg Magnesium Oxide (Mag-Ox) 400 mg PO DAILY [facility] Last Admin: 12/18/17 09:01 Dose: 400 mg Oxycodone/Acetaminophen (Percocet 5/325 Mg Tab) 1 tab PO Q4H PRN PRN Reason: Pain, Mild (1-3) Stop: 12/18/17 10:31 Last Admin: 12/17/17 05:36 Dose: 1 tab Potassium Chloride (K-Dur 20 Meq Er Tab) 20 meq PO BRK [facility] Last Admin: 12/18/17 08:57 Dose: 20 meq Prednisolone (Prednisolone) 30 mg PO BID [facility] Last Admin: 12/18/17 09:01 Dose: 30 mg - Labs Labs: 12/17/17 06:34 12/17/17 06:34 PT 11.0 SECONDS (9.7-12.2) 12/14/17 00:51 INR 1.0 12/14/17 00:51 APTT 35 SECONDS (21-34) H 12/14/17 00:51 - Constitutional Appears: No Acute Distress, Chronically Ill - Head Exam Head Exam: ATRAUMATIC, NORMAL INSPECTION - Eye Exam Eye Exam: EOMI, Normal appearance - Neck Exam Neck Exam: Normal Inspection. absent: Tenderness - Respiratory Exam Respiratory Exam: Clear to Ausculation Bilateral, NORMAL BREATHING PATTERN - Cardiovascular Exam Cardiovascular Exam: REGULAR RHYTHM - GI/Abdominal Exam GI & Abdominal Exam: Soft, Tenderness - Extremities Exam Extremities Exam: Normal Inspection. absent: Tenderness - Neurological Exam Neurological Exam: Alert, CN II-XII Intact - Skin Skin Exam: Dry, Warm Assessment and Plan (1) Hereditary nephritis Status: Acute (2) ESRD (end stage renal disease) Status: Acute (3) Hypertension Status: Acute (4) Acute gout Status: Acute - Assessment and Plan (Free Text) Plan: dialysis MWF treatment for gout Await AV access- 12/20 will need outpt dialysis placement
[2017-12-18 11:01] LABS: ALDO/PRA RATIO 5.3 Ratio (0.9-28.9)
--- NOTE | 2017-12-18 11:14 | CP.PCM.PN ---
Subjective - Date & Time of Evaluation Date of Evaluation: 12/18/17 Time of Evaluation: 11:09 - Subjective Subjective: Pt feeling better. Denies any ankle pain. Pt says right elbow feeling better. Afebrile, VSS R elbow: no effusion tenderness over medial epicondyle and olecranon AROM 0-75 deg flexion no pain with forearm pronation or supination NVI distally R ankle: no effusion or deformity NT to palpation full AROM without pain palpable pulses NVI distally xrays: r elbow no acute fx or dislocation no obvious soft tissue selling r ankle: no acute fx or dislocation serum uric 7.3 Pt clinically improving. Discussed steroid injection for elbow and pt does not want injection for now. At this time, exam not consistent with infectious etilogy but rather gout. Will monitor. Objective - Vital Signs/Intake and Output Vital Signs (last 24 hours): Temp Pulse Resp BP Pulse Ox 98.4 F 95 H 20 154/83 H 97 12/18/17 07:05 12/18/17 07:07 12/18/17 07:05 12/18/17 07:05 12/18/17 07:05 Intake and Output: 12/18/17 12/18/17 06:59 18:59 Intake Total 300 Output Total 500 Balance -200 - Medications Medications: Current Medications Calcium Acetate (Phoslo) 667 mg PO TIDCC [facility] Last Admin: 12/18/17 09:01 Dose: 667 mg Cephalexin Monohydrate (Keflex) 500 mg PO BID [facility] PRN Reason: Protocol Last Admin: 12/18/17 09:01 Dose: 500 mg Famotidine (Pepcid) 20 mg PO DAILY [facility] Last Admin: 12/18/17 09:01 Dose: 20 mg Magnesium Oxide (Mag-Ox) 400 mg PO DAILY [facility] Last Admin: 12/18/17 09:01 Dose: 400 mg Potassium Chloride (K-Dur 20 Meq Er Tab) 20 meq PO BRK [facility] Last Admin: 12/18/17 08:57 Dose: 20 meq Prednisolone (Prednisolone) 30 mg PO BID [facility] Last Admin: 12/18/17 09:01 Dose: 30 mg - Labs Labs: 12/17/17 06:34 12/17/17 06:34 PT 11.0 SECONDS (9.7-12.2) 12/14/17 00:51 INR 1.0 12/14/17 00:51 APTT 35 SECONDS (21-34) H 12/14/17 00:51
--- NOTE | 2017-12-18 13:54 | CP.PCM.PN ---
Subjective - Date & Time of Evaluation Date of Evaluation: 12/18/17 Time of Evaluation: 13:52 - Subjective Subjective: S: Feels better. No fever. Objective - Vital Signs/Intake and Output Vital Signs (last 24 hours): Temp Pulse Resp BP Pulse Ox 98.4 F 101 H 20 154/83 H 97 12/18/17 07:05 12/18/17 11:55 12/18/17 07:05 12/18/17 07:05 12/18/17 07:05 Intake and Output: 12/18/17 12/18/17 06:59 18:59 Intake Total 300 Output Total 500 Balance -200 - Medications Medications: Current Medications Calcium Acetate (Phoslo) 667 mg PO TIDCC [facility] Last Admin: 12/18/17 12:22 Dose: 667 mg Cephalexin Monohydrate (Keflex) 500 mg PO BID [facility] PRN Reason: Protocol Last Admin: 12/18/17 09:01 Dose: 500 mg Famotidine (Pepcid) 20 mg PO DAILY [facility] Last Admin: 12/18/17 09:01 Dose: 20 mg Magnesium Oxide (Mag-Ox) 400 mg PO DAILY [facility] Last Admin: 12/18/17 09:01 Dose: 400 mg Potassium Chloride (K-Dur 20 Meq Er Tab) 20 meq PO BRK [facility] Last Admin: 12/18/17 08:57 Dose: 20 meq Prednisolone (Prednisolone) 30 mg PO BID [facility] Last Admin: 12/18/17 09:01 Dose: 30 mg - Labs Labs: 12/17/17 06:34 12/17/17 06:34 PT 11.0 SECONDS (9.7-12.2) 12/14/17 00:51 INR 1.0 12/14/17 00:51 APTT 35 SECONDS (21-34) H 12/14/17 00:51 - Constitutional Appears: No Acute Distress - Head Exam Head Exam: NORMAL INSPECTION - Eye Exam Eye Exam: Normal appearance - ENT Exam ENT Exam: Normal Exam - Neck Exam Neck Exam: Normal Inspection - Respiratory Exam Respiratory Exam: NORMAL BREATHING PATTERN - Cardiovascular Exam Cardiovascular Exam: REGULAR RHYTHM - GI/Abdominal Exam GI & Abdominal Exam: Soft - Rectal Exam Rectal Exam: Deferred - Extremities Exam Extremities Exam: Normal Inspection Assessment and Plan (1) Hereditary nephritis Status: Acute (2) Renal failure Status: Acute - Assessment and Plan (Free Text) Assessment: A/P: Continue medications
[2017-12-18] MEDS ORDERED: Oxycodone/Acetaminophen 5/325 mg Tab PO PRN (16:45)
--- NOTE | 2017-12-19 07:33 | CP.PCM.PN ---
Subjective - Date & Time of Evaluation Date of Evaluation: 12/19/17 Time of Evaluation: 07:30 - Subjective Subjective: Vascular Surgery Progress note for Dr. Ocampo Pt seen and evaluated this AM at bedside no acute events overnight. Patient denies any chest pain or SOB or any new or concerning symptoms. Discussed surgical plan for tomorrow with pt. Objective - Vital Signs/Intake and Output Vital Signs (last 24 hours): Temp Pulse Resp BP Pulse Ox 98.1 F 98 H 20 177/71 H 95 12/19/17 04:51 12/19/17 04:51 12/19/17 04:51 12/19/17 04:51 12/19/17 04:51 Intake and Output: 12/19/17 12/19/17 06:59 18:59 Intake Total 320 Balance 320 - Medications Medications: Current Medications Calcium Acetate (Phoslo) 667 mg PO TIDCC [facility] Last Admin: 12/18/17 18:00 Dose: 667 mg Famotidine (Pepcid) 20 mg PO DAILY [facility] Last Admin: 12/18/17 09:01 Dose: 20 mg Magnesium Oxide (Mag-Ox) 400 mg PO DAILY [facility] Last Admin: 12/18/17 09:01 Dose: 400 mg Oxycodone/Acetaminophen (Percocet 5/325 Mg Tab) 1 tab PO Q6H PRN PRN Reason: Pain, moderate (4-7) Stop: 12/21/17 16:46 Potassium Chloride (K-Dur 20 Meq Er Tab) 20 meq PO BRK [facility] Last Admin: 12/18/17 08:57 Dose: 20 meq Prednisolone (Prednisolone) 30 mg PO BID [facility] Last Admin: 12/18/17 18:08 Dose: 30 mg - Labs Labs: 12/17/17 06:34 12/17/17 06:34 PT 11.0 SECONDS (9.7-12.2) 12/14/17 00:51 INR 1.0 12/14/17 00:51 APTT 35 SECONDS (21-34) H 12/14/17 00:51 - Constitutional Appears: Non-toxic, No Acute Distress - Head Exam Head Exam: ATRAUMATIC, NORMOCEPHALIC - Eye Exam Eye Exam: EOMI - Respiratory Exam Respiratory Exam: NORMAL BREATHING PATTERN - Cardiovascular Exam Cardiovascular Exam: +S1, +S2 - GI/Abdominal Exam GI & Abdominal Exam: Soft. absent: Firm, Guarding, Rigid, Tenderness - Neurological Exam Neurological Exam: Alert, Awake - Psychiatric Exam Psychiatric exam: Normal Affect, Normal Mood - Skin Skin Exam: Dry, Intact Assessment and Plan - Assessment and Plan (Free Text) Assessment: 42M with ESRD Plan for OR tomorrow for AVF NPO past midnight AM CMP Further recs per Dr. Terrence Mccullough PGY2
[2017-12-19] MEDS: Potassium Chloride 20 mEq ER Tab PO SCH (09:00)
[2017-12-19] MEDS: PrednisoLONE 6 MG/2 ML SYR PO SCH ×2 (10:35→18:08)
[2017-12-19] MEDS: Magnesium Oxide 400 mg Tab UD PO SCH (10:35)
[2017-12-20 06:36] LABS: BASO % 0.1 % (0.0-2.0); HEMOGLOBIN 9.3 g/dL (12.0-18.0); LYMPH % 3.6 % (20.0-40.0); MEAN CELL VOLUME 79.7 fL (80.0-94.0); MEAN CORPUSCULAR HEMOGLOBIN 26.2 pg (27.0-31.0); MEAN CORPUSCULAR HGB CONC 32.9 g/dL (33.0-37.0); MEAN PLATELET VOLUME 7.9 fL (7.2-11.7); MONO # 1.3 K/uL (0.0-0.8); MONO % 4.9 % (0.0-10.0); NEUT # 24.5 K/uL (1.8-7.0); NEUT % 91.4 % (50.0-75.0); PLATELET COUNT 241 K/uL (130-400); RBC 3.54 Mil/uL (4.40-5.90); RED CELL DISTRIBUTION WIDTH 15.9 % (11.5-14.5); WHITE BLOOD COUNT 26.8 K/uL (4.8-10.8)
[2017-12-20 06:47] LABS: PROTHROMBIN TIME 10.7 SECONDS (9.7-12.2)
[2017-12-20] MEDS: Potassium Chloride 20 mEq ER Tab PO SCH (07:55)
[2017-12-20 08:21] LABS: ALB/GLOB RATIO 1.2 (1.0-2.1); ALBUMIN 3.4 g/dL (3.5-5.0); CALCIUM 8.9 mg/dl (8.6-10.4)
[2017-12-20 08:47] LABS: ANISOCYTOSIS SLIGHT; HYPOCHROMIC SLIGHT; LYMPHOCYTE 2 % (20-40); MONOCYTE 2 % (0-10); NEUTROPHIL 96 % (50-75); PLATELET ESTIMATE NORMAL (NORMAL); TOTAL CELLS COUNTED 100
--- NOTE | 2017-12-20 09:13 | CP.PCM.PN ---
Subjective - Date & Time of Evaluation Date of Evaluation: 12/20/17 Time of Evaluation: 08:01 - Subjective Subjective: Pt feels well; no more fever and R elbow & L foot pain is gone. Feels much stronger after HD. No CP, no SOB, no cough, no dysuria; (+) flatus after HD but no diarrhea Objective - Vital Signs/Intake and Output Vital Signs (last 24 hours): Temp Pulse Resp BP Pulse Ox 97.6 F 93 H 20 168/90 H 100 12/20/17 07:00 12/20/17 08:00 12/20/17 07:00 12/20/17 07:00 12/20/17 07:00 - Medications Medications: Current Medications Calcium Acetate (Phoslo) 667 mg PO TIDCC [facility] Last Admin: 12/20/17 07:55 Dose: 667 mg Famotidine (Pepcid) 20 mg PO DAILY [facility] Last Admin: 12/19/17 10:35 Dose: 20 mg Magnesium Oxide (Mag-Ox) 400 mg PO DAILY [facility] Last Admin: 12/19/17 10:35 Dose: 400 mg Oxycodone/Acetaminophen (Percocet 5/325 Mg Tab) 1 tab PO Q6H PRN PRN Reason: Pain, moderate (4-7) Stop: 12/21/17 16:46 Potassium Chloride (K-Dur 20 Meq Er Tab) 20 meq PO BRK [facility] Last Admin: 12/20/17 07:55 Dose: 20 meq Prednisolone (Prednisolone) 30 mg PO BID [facility] Last Admin: 12/19/17 18:08 Dose: 30 mg - Labs Labs: 12/20/17 06:24 12/20/17 06:24 PT 10.7 SECONDS (9.7-12.2) 12/20/17 06:24 INR 1.0 12/20/17 06:24 APTT 27 SECONDS (21-34) 12/20/17 06:24 - Constitutional Appears: No Acute Distress - Eye Exam Eye Exam: Normal appearance - ENT Exam ENT Exam: Mucous Membranes Moist - Neck Exam Neck Exam: Full ROM. absent: Lymphadenopathy, Meningismus - Respiratory Exam Respiratory Exam: Clear to Ausculation Bilateral. absent: Rales, Rhonchi, Wheezes - Cardiovascular Exam Cardiovascular Exam: REGULAR RHYTHM, +S1, +S2. absent: Gallop, JVD, Murmur - GI/Abdominal Exam GI & Abdominal Exam: Soft, Normal Bowel Sounds. absent: Tenderness - Extremities Exam Extremities Exam: Full ROM, Normal Capillary Refill. 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
[2017-12-20] MEDS: PrednisoLONE 6 MG/2 ML SYR PO SCH ×2 (09:58→19:04)
[2017-12-20] MEDS: Magnesium Oxide 400 mg Tab UD PO SCH (09:58)
--- NOTE | 2017-12-20 11:51 | CP.PCM.PN ---
Subjective - Date & Time of Evaluation Date of Evaluation: 12/20/17 Time of Evaluation: 11:48 - Subjective Subjective: Awaiting AV access surgery Elbow sl painful now- despite steroids Increase BUN likely from steroids BP elevated Will do dialysis post surgery today Objective - Vital Signs/Intake and Output Vital Signs (last 24 hours): Temp Pulse Resp BP Pulse Ox 97.6 F 93 H 20 168/90 H 100 12/20/17 07:00 12/20/17 08:00 12/20/17 07:00 12/20/17 07:00 12/20/17 07:00 - Medications Medications: Current Medications Calcium Acetate (Phoslo) 667 mg PO TIDCC [facility] Last Admin: 12/20/17 11:27 Dose: 667 mg Famotidine (Pepcid) 20 mg PO DAILY [facility] Last Admin: 12/20/17 09:58 Dose: 20 mg Magnesium Oxide (Mag-Ox) 400 mg PO DAILY [facility] Last Admin: 12/20/17 09:58 Dose: 400 mg Oxycodone/Acetaminophen (Percocet 5/325 Mg Tab) 1 tab PO Q6H PRN PRN Reason: Pain, moderate (4-7) Stop: 12/21/17 16:46 Potassium Chloride (K-Dur 20 Meq Er Tab) 20 meq PO BRK [facility] Last Admin: 12/20/17 07:55 Dose: 20 meq Prednisolone (Prednisolone) 25 mg PO BID [facility] Last Admin: 12/20/17 09:58 Dose: 25 mg - Labs Labs: 12/20/17 06:24 12/20/17 06:24 PT 10.7 SECONDS (9.7-12.2) 12/20/17 06:24 INR 1.0 12/20/17 06:24 APTT 27 SECONDS (21-34) 12/20/17 06:24 - Constitutional Appears: No Acute Distress, Chronically Ill - Head Exam Head Exam: ATRAUMATIC, NORMAL INSPECTION - Eye Exam Eye Exam: EOMI, Normal appearance - Neck Exam Neck Exam: Normal Inspection. absent: Tenderness - Respiratory Exam Respiratory Exam: Clear to Ausculation Bilateral, NORMAL BREATHING PATTERN - Cardiovascular Exam Cardiovascular Exam: REGULAR RHYTHM, +S1 - GI/Abdominal Exam GI & Abdominal Exam: Soft. absent: Tenderness - Extremities Exam Extremities Exam: Normal Inspection. absent: Tenderness - Neurological Exam Neurological Exam: Awake, CN II-XII Intact - Skin Skin Exam: Dry, Warm Assessment and Plan (1) Hereditary nephritis Status: Acute (2) ESRD (end stage renal disease) Status: Acute (3) Hypertension Status: Acute (4) Acute gout Status: Acute - Assessment and Plan (Free Text) Plan: Add small dose colchicine as gout still problematic AV access surgery Dialysis to follow surgery Add amlodipine
--- NOTE | 2017-12-20 17:56 | CP.PCM.PN ---
Subjective - Date & Time of Evaluation Date of Evaluation: 12/20/17 Time of Evaluation: 17:49 - Subjective Subjective: Patient seen and examined. Patient at dialysis. Patient states he feels much better. He denies any pain of the left ankle. He states he only has pain with full flexion of the right elbow. Patient still on PO steroids. Afebrile VSS R elbow: no effusion, no erythema, no warmth. Full AROM with very minimal pain on full degrees of flexion. No areas of tenderness. IV line in forearm, no infiltration. Neurovascularly he is intact distally L ankle: no swelling. The skin is intact. No areas of tenderness to palpation. Full range of motion. Calf and thigh are soft and nontender. Palpable DP pulse. NVI distally Patient continues to improve clinically Continue medical management Discussed above with Dr. Vazquez, he agrees. Objective - Vital Signs/Intake and Output Vital Signs (last 24 hours): Temp Pulse Resp BP Pulse Ox 97.8 F 91 H 18 161/109 H 98 12/20/17 15:20 12/20/17 17:00 12/20/17 15:20 12/20/17 17:00 12/20/17 17:00 Intake and Output: 12/20/17 12/20/17 06:59 18:59 Intake Total 50 Balance 50 - Medications Medications: Current Medications Amlodipine Besylate (Norvasc) 5 mg PO DAILY [facility] Calcium Acetate (Phoslo) 667 mg PO TIDCC [facility] Last Admin: 12/20/17 11:30 Dose: Not Given Colchicine (Colocrys) 0.3 mg PO DAILY [facility] Famotidine (Pepcid) 20 mg PO DAILY [facility] Last Admin: 12/20/17 09:58 Dose: 20 mg Magnesium Oxide (Mag-Ox) 400 mg PO DAILY [facility] Last Admin: 12/20/17 09:58 Dose: 400 mg Oxycodone/Acetaminophen (Percocet 5/325 Mg Tab) 1 tab PO Q6H PRN PRN Reason: Pain, moderate (4-7) Stop: 12/21/17 16:46 Potassium Chloride (K-Dur 20 Meq Er Tab) 20 meq PO BRK [facility] Last Admin: 12/20/17 07:55 Dose: 20 meq Prednisolone (Prednisolone) 25 mg PO BID [facility] Last Admin: 12/20/17 09:58 Dose: 25 mg - Labs Labs: 12/20/17 06:24 12/20/17 06:24 PT 10.7 SECONDS (9.7-12.2) 12/20/17 06:24 INR 1.0 12/20/17 06:24 APTT 27 SECONDS (21-34) 12/20/17 06:24 Assessment and Plan (1) Acute gout due to renal impairment involving ankle Status: Acute (2) Acute gout due to renal impairment involving elbow Status: Acute
[2017-12-21 06:30] LABS: BASO % 0.1 % (0.0-2.0); LYMPH # 0.8 K/uL (1.0-4.3); LYMPH % 3.9 % (20.0-40.0); MEAN CELL VOLUME 79.9 fL (80.0-94.0); MEAN CORPUSCULAR HGB CONC 32.5 g/dL (33.0-37.0); MEAN PLATELET VOLUME 7.8 fL (7.2-11.7); MONO # 1.3 K/uL (0.0-0.8); MONO % 5.8 % (0.0-10.0); NEUT # 19.4 K/uL (1.8-7.0); NEUT % 90.2 % (50.0-75.0); PLATELET COUNT 268 K/uL (130-400); RBC 3.83 Mil/uL (4.40-5.90); RED CELL DISTRIBUTION WIDTH 15.9 % (11.5-14.5); WHITE BLOOD COUNT 21.5 K/uL (4.8-10.8)
[2017-12-21 07:50] LABS: ALB/GLOB RATIO 1.2 (1.0-2.1); ALBUMIN 3.5 g/dL (3.5-5.0); CALCIUM 8.7 mg/dl (8.6-10.4)
--- NOTE | 2017-12-21 08:36 | CP.PCM.PN ---
Subjective - Date & Time of Evaluation Date of Evaluation: 12/21/17 Time of Evaluation: 08:20 - Subjective Subjective: Pt no complain; Did not get shunt c/o scheduling. No CP, no SOB, no joint pain, no cough, no fever, no dysuria Objective - Vital Signs/Intake and Output Vital Signs (last 24 hours): Temp Pulse Resp BP Pulse Ox 98.1 F 88 20 155/89 H 99 12/21/17 07:10 12/21/17 07:10 12/21/17 07:10 12/21/17 07:10 12/21/17 07:10 Intake and Output: 12/21/17 12/21/17 06:59 18:59 Intake Total 150 Balance 150 - Medications Medications: Current Medications Amlodipine Besylate (Norvasc) 5 mg PO DAILY [facility] Calcium Acetate (Phoslo) 667 mg PO TIDCC [facility] Last Admin: 12/20/17 19:04 Dose: 667 mg Colchicine (Colocrys) 0.3 mg PO DAILY [facility] Famotidine (Pepcid) 20 mg PO DAILY [facility] Last Admin: 12/20/17 09:58 Dose: 20 mg Magnesium Oxide (Mag-Ox) 400 mg PO DAILY [facility] Last Admin: 12/20/17 09:58 Dose: 400 mg Oxycodone/Acetaminophen (Percocet 5/325 Mg Tab) 1 tab PO Q6H PRN PRN Reason: Pain, moderate (4-7) Stop: 12/21/17 16:46 Potassium Chloride (K-Dur 20 Meq Er Tab) 20 meq PO BRK [facility] Last Admin: 12/20/17 07:55 Dose: 20 meq Prednisolone (Prednisolone) 25 mg PO BID [facility] Last Admin: 12/20/17 19:04 Dose: 25 mg - Labs Labs: 12/21/17 06:20 12/21/17 06:20 PT 10.7 SECONDS (9.7-12.2) 12/20/17 06:24 INR 1.0 12/20/17 06:24 APTT 27 SECONDS (21-34) 12/20/17 06:24 - Constitutional Appears: No Acute Distress - Eye Exam Eye Exam: Normal appearance - ENT Exam ENT Exam: Mucous Membranes Moist - Neck Exam Neck Exam: Full ROM. absent: Lymphadenopathy, Thyromegaly - Respiratory Exam Respiratory Exam: Clear to Ausculation Bilateral. absent: Rales, Rhonchi, Wheezes - Cardiovascular Exam Cardiovascular Exam: REGULAR RHYTHM, +S1, +S2. absent: Gallop, JVD, Murmur - GI/Abdominal Exam GI & Abdominal Exam: Soft. absent: Tenderness - Extremities Exam Extremities Exam: Full ROM, Normal Capillary Refill. absent: Calf Tenderness, Joint Swelling, Pedal Edema Assessment and Plan - Assessment and Plan (Free Text) Assessment: ESRD; Inc WBC 2 to Steroid Gout, HTN Slow dec prednisone c/o 10 mg q 2-3 days Cont meds/ supportive care
[2017-12-21] MEDS: Potassium Chloride 20 mEq ER Tab PO SCH (08:48)
[2017-12-21] MEDS: PrednisoLONE 6 MG/2 ML SYR PO SCH (09:04)
[2017-12-21] MEDS: Magnesium Oxide 400 mg Tab UD PO SCH (09:04)
[2017-12-21 09:08] LABS: LYMPHOCYTE 2 % (20-40); MONOCYTE 5 % (0-10); NEUTROPHIL 93 % (50-75); TOTAL CELLS COUNTED 100
[2017-12-21 09:12] LABS: PLATELET ESTIMATE NORMAL (NORMAL)
[2017-12-21 09:13] LABS: ANISOCYTOSIS SLIGHT; HYPOCHROMIC SLIGHT; POIKILOCYTOSIS SLIGHT
[2017-12-21] MEDS ORDERED: Sodium Chloride 0.9% 500 ML IV ONE (13:05)
[2017-12-21] MEDS ORDERED: HEPARIN-NS 5,000 UNITS/500 ML 5,000 UNIT/500 ML BAG IV ONE (13:13)
[2017-12-21] MEDS ORDERED: ceFAZolin 1 gm in NS 1 GM/100 ML BAG IVPB ONE (13:16)
--- NOTE | 2017-12-21 13:20 | CP.PCM.PN ---
Subjective - Date & Time of Evaluation Date of Evaluation: 12/21/17 Time of Evaluation: 13:19 - Subjective Subjective: pt in OR getting avf chart review only s/p hd yesterday on prednisone and colchicine for gout Objective - Vital Signs/Intake and Output Vital Signs (last 24 hours): Temp Pulse Resp BP Pulse Ox 98.1 F 88 20 155/89 H 99 12/21/17 07:10 12/21/17 08:27 12/21/17 07:10 12/21/17 07:10 12/21/17 07:10 Intake and Output: 12/21/17 12/21/17 06:59 18:59 Intake Total 150 Balance 150 - Medications Medications: Current Medications Amlodipine Besylate (Norvasc) 5 mg PO DAILY [facility] Last Admin: 12/21/17 09:04 Dose: 5 mg Calcium Acetate (Phoslo) 667 mg PO TIDCC [facility] Last Admin: 12/21/17 11:00 Dose: Not Given Colchicine (Colocrys) 0.3 mg PO DAILY [facility] Last Admin: 12/21/17 09:04 Dose: Not Given Famotidine (Pepcid) 20 mg PO DAILY [facility] Last Admin: 12/21/17 09:04 Dose: Not Given Magnesium Oxide (Mag-Ox) 400 mg PO DAILY [facility] Last Admin: 12/21/17 09:04 Dose: Not Given Oxycodone/Acetaminophen (Percocet 5/325 Mg Tab) 1 tab PO Q6H PRN PRN Reason: Pain, moderate (4-7) Stop: 12/21/17 16:46 Potassium Chloride (K-Dur 20 Meq Er Tab) 20 meq PO BRK [facility] Last Admin: 12/21/17 08:48 Dose: Not Given Prednisone (Prednisone Tab) 20 mg PO BID [facility] Last Admin: 12/21/17 10:59 Dose: Not Given Prednisone (Prednisone Tab) 5 mg PO BID [facility] Last Admin: 12/21/17 11:00 Dose: Not Given - Labs Labs: 12/21/17 06:20 12/21/17 06:20 PT 10.7 SECONDS (9.7-12.2) 12/20/17 06:24 INR 1.0 12/20/17 06:24 APTT 27 SECONDS (21-34) 12/20/17 06:24 Assessment and Plan (1) Hypertension Status: Acute (2) ESRD (end stage renal disease) Status: Acute (3) Gout attack Status: Acute (4) Hypokalemia Status: Acute (5) Anemia Status: Acute - Assessment and Plan (Free Text) Assessment: maintain hd mwf electrolytes acceptable bp acceptable check pth and phos gamaliel w/ hd outpt placement
[2017-12-21] MEDS ORDERED: Propofol 10 mg/ml Inj (20 ML) ONE (13:21)
[2017-12-21] MEDS ORDERED: Midazolam 2 MG/2 ML VIAL ONE (13:21)
[2017-12-21] MEDS ORDERED: Papaverine Hydrochloride 30 mg/ml (2ml) ONE (13:49)
--- NOTE | 2017-12-21 15:10 | PCM.SURG1 ---
Surgeon's Initial Post Op Note - Surgeon's Notes Surgeon: Dr. Ocampo Director Of Student Affairs: Dr. Mccullough PGY2 Type of Anesthesia: General Endo Pre-Operative Diagnosis: ESRD Operative Findings: See operative dictation Post-Operative Diagnosis: ESRD Operation Performed: Left arm snuff box arteriovenous fistula formation Specimen/Specimens Removed: None Estimated Blood Loss: EBL {In ML}: 20 Blood Products Given: N/A Drains Used: No Drains Post-Op Condition: Good Date of Surgery/Procedure: 12/21/17 Time of Surgery/Procedure: 15:10
[2017-12-21] MEDS: HYDROmorphone 0.5 mg/0.5 ml ISec IVP PRN ×2 (15:26→15:55)
--- NOTE | 2017-12-22 01:47 | OP ---
PROCEDURE DATE: 12/21/2017 PREOPERATIVE DIAGNOSIS: Renal failure. POSTOPERATIVE DIAGNOSIS: Renal failure. PROCEDURE CARRIED OUT: Snuffbox fistula, left wrist. SURGEON: Ruel Ocampo Jr., MD. WOOD ROOM HAND: Dr. Mccullough. ANESTHESIOLOGIST: Mr. Chatman. INDICATIONS: The patient is a middle age man with renal insufficiency, now requiring dialysis as temporary catheter inserted. OPERATIVE FINDINGS: Cephalic vein had a Snuffbox fistula created at the wrist. At the end of the procedure, there was good flow to the hand. There was excellent flow to the fistula. Operation was carried out using loupe magnification and heparin anticoagulation. DESCRIPTION OF PROCEDURE: The patient was given general anesthesia, intravenous antibiotics. The veins distended on the forearm. These were dissected free with the adjacent superficial branch of the radial artery. These were then anastomosed in an end-to-side fashion, loupe magnification, heparin anticoagulation. After this had been completed, hemostasis obtained. The wound was closed with Monocryl and Nylon sutures, and the skin closed with sutures. Blood loss of the procedure was 20 mL. Operation carried out, Snuffbox fistula, left wrist. Ruel Ocampo Jr., MD cc: Dr. Elaine.
[2017-12-22] MEDS: Potassium Chloride 20 mEq ER Tab PO SCH (07:41)
--- NOTE | 2017-12-22 08:16 | CP.PCM.PN ---
Subjective - Date & Time of Evaluation Date of Evaluation: 12/22/17 Time of Evaluation: 07:59 - Subjective Subjective: Pt (+) a lot of flatus and have to strain to pass bowel movement. No CP, no SOB, no edema, no cough, no n/v; Elbow and foot pain - "gone". Want to go home Objective - Vital Signs/Intake and Output Vital Signs (last 24 hours): Temp Pulse Resp BP Pulse Ox 97.8 F 85 20 146/90 98 12/22/17 07:00 12/22/17 07:00 12/22/17 07:00 12/22/17 07:00 12/22/17 07:00 - Medications Medications: Current Medications Amlodipine Besylate (Norvasc) 5 mg PO DAILY [facility] Last Admin: 12/21/17 09:04 Dose: 5 mg Calcium Acetate (Phoslo) 667 mg PO TIDCC [facility] Last Admin: 12/22/17 07:42 Dose: 667 mg Colchicine (Colocrys) 0.3 mg PO DAILY [facility] Last Admin: 12/21/17 09:04 Dose: Not Given Epoetin Taj (Procrit) 10,000 unit IV F [facility] Famotidine (Pepcid) 20 mg PO DAILY [facility] Last Admin: 12/21/17 09:04 Dose: Not Given Magnesium Oxide (Mag-Ox) 400 mg PO DAILY [facility] Last Admin: 12/21/17 09:04 Dose: Not Given Polyethylene Glycol (Miralax) 17 gm PO DAILY [facility] Potassium Chloride (K-Dur 20 Meq Er Tab) 20 meq PO BRK [facility] Last Admin: 12/22/17 07:41 Dose: 20 meq Prednisone (Prednisone Tab) 20 mg PO BID [facility] Last Admin: 12/21/17 17:17 Dose: 20 mg - Labs Labs: 12/21/17 06:20 12/21/17 06:20 PT 10.7 SECONDS (9.7-12.2) 12/20/17 06:24 INR 1.0 12/20/17 06:24 APTT 27 SECONDS (21-34) 12/20/17 06:24 - Constitutional Appears: No Acute Distress - Eye Exam Eye Exam: Normal appearance - ENT Exam ENT Exam: Mucous Membranes Moist - Neck Exam Neck Exam: Full ROM. absent: Normal Inspection, Thyromegaly - Respiratory Exam Respiratory Exam: Clear to Ausculation Bilateral. absent: Rales, Rhonchi, Wheezes - Cardiovascular Exam Cardiovascular Exam: REGULAR RHYTHM, +S1, +S2. absent: Gallop, JVD, Murmur - GI/Abdominal Exam GI & Abdominal Exam: Soft. absent: Tenderness, Pulsatile Mass - Extremities Exam Extremities Exam: Full ROM, Normal Capillary Refill. absent: Calf Tenderness, Joint Swelling, Pedal Edema Assessment and Plan - Assessment and Plan (Free Text) Plan: S/p AV Fistula; ESRD; constipation HTN; Gout Taper Prednisone For HD as per Renal Discharge as per Renal/ surgery
[2017-12-22] MEDS: Epoetin Alfa 10,000 unit/ml Dialysis IV SCH (10:46)
[2017-12-22 11:16] LABS: HEMOGLOBIN 8.9 g/dL (12.0-18.0); MEAN CORPUSCULAR HGB CONC 33.7 g/dL (33.0-37.0); MEAN PLATELET VOLUME 7.5 fL (7.2-11.7); RBC 3.28 Mil/uL (4.40-5.90); RED CELL DISTRIBUTION WIDTH 15.8 % (11.5-14.5); WHITE BLOOD COUNT 19.5 K/uL (4.8-10.8)
[2017-12-22] MEDS: POLYETHYLENE GLYCOL 3350 17 GM/Dose PACKET PO SCH (12:37)
[2017-12-22] MEDS: Magnesium Oxide 400 mg Tab UD PO SCH (12:37)
--- NOTE | 2017-12-22 14:12 | CP.PCM.PN ---
Subjective - Date & Time of Evaluation Date of Evaluation: 12/22/17 Time of Evaluation: 14:10 - Subjective Subjective: s/p AV F placement- has good bruit over access s/p dialysis today- not complicated gout better BP controlled Objective - Vital Signs/Intake and Output Vital Signs (last 24 hours): Temp Pulse Resp BP Pulse Ox 97.8 F 112 H 16 151/85 H 99 12/22/17 12:05 12/22/17 12:36 12/22/17 12:05 12/22/17 12:36 12/22/17 12:05 - Medications Medications: Current Medications Amlodipine Besylate (Norvasc) 5 mg PO DAILY [facility] Last Admin: 12/22/17 12:37 Dose: 5 mg Calcium Acetate (Phoslo) 667 mg PO TIDCC [facility] Last Admin: 12/22/17 12:37 Dose: 667 mg Colchicine (Colocrys) 0.3 mg PO DAILY [facility] Last Admin: 12/22/17 12:36 Dose: 0.3 mg Epoetin Taj (Procrit) 10,000 unit IV MWF [facility] Last Admin: 12/22/17 10:46 Dose: 10,000 unit Famotidine (Pepcid) 20 mg PO DAILY [facility] Last Admin: 12/22/17 12:37 Dose: 20 mg Magnesium Oxide (Mag-Ox) 400 mg PO DAILY [facility] Last Admin: 12/22/17 12:37 Dose: 400 mg Polyethylene Glycol (Miralax) 17 gm PO DAILY [facility] Last Admin: 12/22/17 12:37 Dose: 17 gm Prednisone (Prednisone Tab) 20 mg PO BID [facility] Last Admin: 12/22/17 09:57 Dose: Not Given - Labs Labs: 12/22/17 11:11 12/21/17 06:20 PT 10.7 SECONDS (9.7-12.2) 12/20/17 06:24 INR 1.0 12/20/17 06:24 APTT 27 SECONDS (21-34) 12/20/17 06:24 - Constitutional Appears: No Acute Distress, Chronically Ill - Head Exam Head Exam: ATRAUMATIC, NORMAL INSPECTION - Eye Exam Eye Exam: EOMI, Normal appearance - Neck Exam Neck Exam: Normal Inspection. absent: Tenderness - Respiratory Exam Respiratory Exam: Clear to Ausculation Bilateral, NORMAL BREATHING PATTERN - Cardiovascular Exam Cardiovascular Exam: REGULAR RHYTHM, +S1 - GI/Abdominal Exam GI & Abdominal Exam: Soft. absent: Tenderness - Extremities Exam Extremities Exam: Normal Inspection. absent: Tenderness - Neurological Exam Neurological Exam: Alert, CN II-XII Intact - Skin Skin Exam: Dry, Warm Assessment and Plan (1) Hereditary nephritis Status: Acute (2) ESRD (end stage renal disease) Status: Acute (3) Hypertension Status: Acute (4) Acute gout Status: Acute - Assessment and Plan (Free Text) Plan: same meds AV access will need to mature await outpt HD placement
[2017-12-22 14:26] LABS: CALCIUM 7.9 mg/dl (8.6-10.4)
[2017-12-23] MEDS: Magnesium Oxide 400 mg Tab UD PO SCH (09:22)
[2017-12-23] MEDS: POLYETHYLENE GLYCOL 3350 17 GM/Dose PACKET PO SCH (09:22)
--- NOTE | 2017-12-23 10:54 | CP.PCM.PN ---
Subjective - Date & Time of Evaluation Date of Evaluation: 12/23/17 Time of Evaluation: 10:52 - Subjective Subjective: stable dialysis 12/22; on MWF schedule AV F with strong bruit HTN controlled gout better no new complaint Objective - Vital Signs/Intake and Output Vital Signs (last 24 hours): Temp Pulse Resp BP Pulse Ox 98.8 F 100 H 18 139/84 98 12/23/17 07:30 12/23/17 09:20 12/23/17 07:30 12/23/17 09:20 12/23/17 07:30 - Medications Medications: Current Medications Amlodipine Besylate (Norvasc) 5 mg PO DAILY [facility] Last Admin: 12/23/17 09:22 Dose: 5 mg Calcium Acetate (Phoslo) 667 mg PO TIDCC [facility] Last Admin: 12/23/17 07:50 Dose: 667 mg Colchicine (Colocrys) 0.3 mg PO DAILY [facility] Last Admin: 12/23/17 09:22 Dose: 0.3 mg Epoetin Taj (Procrit) 10,000 unit IV MWF [facility] Last Admin: 12/22/17 10:46 Dose: 10,000 unit Famotidine (Pepcid) 20 mg PO DAILY [facility] Last Admin: 12/23/17 09:22 Dose: 20 mg Magnesium Oxide (Mag-Ox) 400 mg PO DAILY [facility] Last Admin: 12/23/17 09:22 Dose: 400 mg Polyethylene Glycol (Miralax) 17 gm PO DAILY [facility] Last Admin: 12/23/17 09:22 Dose: 17 gm Prednisone (Prednisone Tab) 20 mg PO BID [facility] Last Admin: 12/23/17 09:22 Dose: 20 mg - Labs Labs: 12/22/17 11:11 12/22/17 13:59 PT 10.7 SECONDS (9.7-12.2) 12/20/17 06:24 INR 1.0 12/20/17 06:24 APTT 27 SECONDS (21-34) 12/20/17 06:24 - Constitutional Appears: No Acute Distress, Chronically Ill - Head Exam Head Exam: ATRAUMATIC, NORMAL INSPECTION - Eye Exam Eye Exam: EOMI, Normal appearance - Neck Exam Neck Exam: Full ROM, Normal Inspection. absent: Tenderness - Respiratory Exam Respiratory Exam: Clear to Ausculation Bilateral, NORMAL BREATHING PATTERN - Cardiovascular Exam Cardiovascular Exam: REGULAR RHYTHM, +S1 - GI/Abdominal Exam GI & Abdominal Exam: Soft. absent: Tenderness - Extremities Exam Extremities Exam: Normal Inspection. absent: Tenderness - Neurological Exam Neurological Exam: Alert, CN II-XII Intact - Skin Skin Exam: Dry, Warm Assessment and Plan (1) Hereditary nephritis Status: Acute (2) ESRD (end stage renal disease) Status: Acute (3) Hypertension Status: Acute (4) Acute gout Status: Acute - Assessment and Plan (Free Text) Plan: continue dialysis MWF gout treatment increase ca acetate as appetite better
--- NOTE | 2017-12-23 16:48 | CP.PCM.PN ---
Subjective - Date & Time of Evaluation Date of Evaluation: 12/23/17 Time of Evaluation: 16:46 - Subjective Subjective: S: Feels manuel. No fever. Objective - Vital Signs/Intake and Output Vital Signs (last 24 hours): Temp Pulse Resp BP Pulse Ox 98.1 F 100 H 20 157/85 H 99 12/23/17 15:27 12/23/17 15:27 12/23/17 15:27 12/23/17 15:27 12/23/17 15:27 Intake and Output: 12/23/17 12/23/17 06:59 18:59 Intake Total 400 Balance 400 - Medications Medications: Current Medications Amlodipine Besylate (Norvasc) 5 mg PO DAILY [facility] Last Admin: 12/23/17 09:22 Dose: 5 mg Calcium Acetate (Phoslo) 1,334 mg PO TIDCC [facility] Last Admin: 12/23/17 11:52 Dose: 1,334 mg Colchicine (Colocrys) 0.3 mg PO DAILY [facility] Last Admin: 12/23/17 09:22 Dose: 0.3 mg Epoetin Taj (Procrit) 10,000 unit IV MWF [facility] Last Admin: 12/22/17 10:46 Dose: 10,000 unit Famotidine (Pepcid) 20 mg PO DAILY [facility] Last Admin: 12/23/17 09:22 Dose: 20 mg Magnesium Oxide (Mag-Ox) 400 mg PO DAILY [facility] Last Admin: 12/23/17 09:22 Dose: 400 mg Polyethylene Glycol (Miralax) 17 gm PO DAILY [facility] Last Admin: 12/23/17 09:22 Dose: 17 gm Prednisone (Prednisone Tab) 20 mg PO BID [facility] Last Admin: 12/23/17 09:22 Dose: 20 mg - Labs Labs: 12/22/17 11:11 12/22/17 13:59 PT 10.7 SECONDS (9.7-12.2) 12/20/17 06:24 INR 1.0 12/20/17 06:24 APTT 27 SECONDS (21-34) 12/20/17 06:24 - Constitutional Appears: No Acute Distress - Head Exam Head Exam: NORMAL INSPECTION - Eye Exam Eye Exam: Normal appearance - ENT Exam ENT Exam: Normal Exam - Neck Exam Neck Exam: Normal Inspection - Respiratory Exam Respiratory Exam: NORMAL BREATHING PATTERN - Cardiovascular Exam Cardiovascular Exam: REGULAR RHYTHM - GI/Abdominal Exam GI & Abdominal Exam: Normal Bowel Sounds - Rectal Exam Rectal Exam: Deferred - Extremities Exam Extremities Exam: Normal Inspection - Neurological Exam Neurological Exam: Alert Assessment and Plan (1) Hereditary nephritis Status: Acute (2) Renal failure Status: Acute (3) Gout Status: Acute - Assessment and Plan (Free Text) Assessment: A/P: Continue medications. Continue Dialysis
[2017-12-24] MEDS: Epoetin Alfa 10,000 unit/ml Dialysis IV SCH (09:55)
[2017-12-24] MEDS: POLYETHYLENE GLYCOL 3350 17 GM/Dose PACKET PO SCH (12:23)
[2017-12-24] MEDS: Magnesium Oxide 400 mg Tab UD PO SCH (12:23)
--- NOTE | 2017-12-24 13:16 | CP.PCM.PN ---
Subjective - Date & Time of Evaluation Date of Evaluation: 12/24/17 Time of Evaluation: 13:14 - Subjective Subjective: stable dialysis now BP still elevated good bruit AVF; c/o UE digit coolness awaiting dialysis placement Objective - Vital Signs/Intake and Output Vital Signs (last 24 hours): Temp Pulse Resp BP Pulse Ox 97.9 F 108 H 20 161/91 H 100 12/24/17 11:55 12/24/17 12:28 12/24/17 11:55 12/24/17 12:28 12/24/17 08:55 Intake and Output: 12/24/17 12/24/17 06:59 18:59 Intake Total 500 Balance 500 - Medications Medications: Current Medications Amlodipine Besylate (Norvasc) 5 mg PO DAILY [facility] Last Admin: 12/24/17 12:23 Dose: 5 mg Calcium Acetate (Phoslo) 1,334 mg PO TIDCC [facility] Last Admin: 12/24/17 11:30 Dose: Not Given Colchicine (Colocrys) 0.3 mg PO DAILY [facility] Last Admin: 12/24/17 12:23 Dose: 0.3 mg Epoetin Taj (Procrit) 10,000 unit IV MWF [facility] Last Admin: 12/24/17 09:55 Dose: 10,000 unit Famotidine (Pepcid) 20 mg PO DAILY [facility] Last Admin: 12/24/17 12:22 Dose: 20 mg Magnesium Oxide (Mag-Ox) 400 mg PO DAILY [facility] Last Admin: 12/24/17 12:23 Dose: 400 mg Polyethylene Glycol (Miralax) 17 gm PO DAILY [facility] Last Admin: 12/24/17 12:23 Dose: 17 gm Prednisone (Prednisone Tab) 20 mg PO BID [facility] Last Admin: 12/24/17 09:46 Dose: Not Given - Labs Labs: 12/22/17 11:11 12/22/17 13:59 PT 10.7 SECONDS (9.7-12.2) 12/20/17 06:24 INR 1.0 12/20/17 06:24 APTT 27 SECONDS (21-34) 12/20/17 06:24 - Constitutional Appears: No Acute Distress, Chronically Ill - Head Exam Head Exam: ATRAUMATIC, NORMAL INSPECTION - Eye Exam Eye Exam: EOMI, Normal appearance - Neck Exam Neck Exam: Normal Inspection. absent: Tenderness - Cardiovascular Exam Cardiovascular Exam: REGULAR RHYTHM, +S1 - GI/Abdominal Exam GI & Abdominal Exam: Soft. absent: Tenderness - Extremities Exam Extremities Exam: Normal Inspection, Tenderness - Neurological Exam Neurological Exam: Alert, CN II-XII Intact - Skin Skin Exam: Dry, Warm Assessment and Plan (1) Hereditary nephritis Status: Acute (2) ESRD (end stage renal disease) Status: Acute (3) Hypertension Status: Acute (4) Acute gout Status: Acute - Assessment and Plan (Free Text) Plan: dialysis MWF monitor Hg adjust BP meds await HD placement
--- NOTE | 2017-12-24 19:14 | CP.PCM.PN ---
Subjective - Date & Time of Evaluation Date of Evaluation: 12/24/17 Time of Evaluation: 19:01 - Subjective Subjective: Pt no complain; No more joint pain; Noted inc HR and BP No CP, no SOB, no cough, no diarrhea, (+) "just bored" in hospiital Objective - Vital Signs/Intake and Output Vital Signs (last 24 hours): Temp Pulse Resp BP Pulse Ox 98.2 F 106 H 20 161/85 H 98 12/24/17 16:56 12/24/17 16:56 12/24/17 16:56 12/24/17 16:56 12/24/17 16:56 - Medications Medications: Current Medications Amlodipine Besylate (Norvasc) 10 mg PO DAILY [facility] Calcium Acetate (Phoslo) 1,334 mg PO TIDCC [facility] Last Admin: 12/24/17 17:04 Dose: 1,334 mg Colchicine (Colocrys) 0.3 mg PO DAILY [facility] Last Admin: 12/24/17 12:23 Dose: 0.3 mg Epoetin Taj (Procrit) 10,000 unit IV MWF [facility] Last Admin: 12/24/17 09:55 Dose: 10,000 unit Famotidine (Pepcid) 20 mg PO DAILY [facility] Last Admin: 12/24/17 12:22 Dose: 20 mg Magnesium Oxide (Mag-Ox) 400 mg PO DAILY [facility] Last Admin: 12/24/17 12:23 Dose: 400 mg Metoprolol Succinate (Toprol Xl) 50 mg PO DAILY [facility] Polyethylene Glycol (Miralax) 17 gm PO DAILY [facility] Last Admin: 12/24/17 12:23 Dose: 17 gm Prednisone (Prednisone Tab) 30 mg PO DAILY [facility] - Labs Labs: 12/22/17 11:11 12/22/17 13:59 PT 10.7 SECONDS (9.7-12.2) 12/20/17 06:24 INR 1.0 12/20/17 06:24 APTT 27 SECONDS (21-34) 12/20/17 06:24 - Constitutional Appears: No Acute Distress - Eye Exam Eye Exam: Normal appearance - ENT Exam ENT Exam: Mucous Membranes Moist - Neck Exam Neck Exam: Full ROM. absent: Normal Inspection - Respiratory Exam Respiratory Exam: Clear to Ausculation Bilateral. absent: Rales, Rhonchi - Cardiovascular Exam Cardiovascular Exam: REGULAR RHYTHM, +S1, +S2. absent: Gallop, JVD, Murmur - GI/Abdominal Exam GI & Abdominal Exam: Soft. absent: Tenderness - Extremities Exam Extremities Exam: Full ROM, Normal Capillary Refill. absent: Joint Swelling, Pedal Edema Assessment and Plan - Assessment and Plan (Free Text) Assessment: s/p AV Fistula; ESRD; HTN, gout Discuss c/o need AV fistula to mature & be set up for OPD HD add Toprol and cont other meds Dec Prednisone to 30 mg/d
[2017-12-25 06:46] LABS: HEMOGLOBIN 9.1 g/dL (12.0-18.0); MEAN CELL VOLUME 81.7 fL (80.0-94.0); MEAN CORPUSCULAR HEMOGLOBIN 26.8 pg (27.0-31.0); MEAN CORPUSCULAR HGB CONC 32.7 g/dL (33.0-37.0); MEAN PLATELET VOLUME 7.8 fL (7.2-11.7); RBC 3.4 Mil/uL (4.40-5.90); RED CELL DISTRIBUTION WIDTH 15.8 % (11.5-14.5)
--- NOTE | 2017-12-25 08:14 | CP.PCM.PN ---
Subjective - Date & Time of Evaluation Date of Evaluation: 12/25/17 Time of Evaluation: 08:01 - Subjective Subjective: Pt no complain; no CP, no SOB, no constipation, no cough Walking ariund and express to go home again. Objective - Vital Signs/Intake and Output Vital Signs (last 24 hours): Temp Pulse Resp BP Pulse Ox 98.6 F 92 H 20 134/75 95 12/24/17 23:05 12/25/17 01:00 12/24/17 23:05 12/24/17 23:05 12/24/17 23:05 - Medications Medications: Current Medications Amlodipine Besylate (Norvasc) 10 mg PO DAILY [facility] Calcium Acetate (Phoslo) 1,334 mg PO TIDCC [facility] Last Admin: 12/25/17 07:49 Dose: 1,334 mg Colchicine (Colocrys) 0.3 mg PO DAILY [facility] Last Admin: 12/24/17 12:23 Dose: 0.3 mg Epoetin Taj (Procrit) 10,000 unit IV MWF [facility] Last Admin: 12/24/17 09:55 Dose: 10,000 unit Famotidine (Pepcid) 20 mg PO DAILY [facility] Last Admin: 12/24/17 12:22 Dose: 20 mg Magnesium Oxide (Mag-Ox) 400 mg PO DAILY [facility] Last Admin: 12/24/17 12:23 Dose: 400 mg Metoprolol Succinate (Toprol Xl) 50 mg PO DAILY [facility] Polyethylene Glycol (Miralax) 17 gm PO DAILY [facility] Last Admin: 12/24/17 12:23 Dose: 17 gm Prednisone (Prednisone Tab) 30 mg PO DAILY [facility] - Labs Labs: 12/25/17 06:36 12/22/17 13:59 PT 10.7 SECONDS (9.7-12.2) 12/20/17 06:24 INR 1.0 12/20/17 06:24 APTT 27 SECONDS (21-34) 12/20/17 06:24 - Constitutional Appears: No Acute Distress - Eye Exam Eye Exam: Normal appearance - ENT Exam ENT Exam: Mucous Membranes Moist - Neck Exam Neck Exam: Full ROM. absent: Lymphadenopathy, Tenderness - Respiratory Exam Respiratory Exam: Clear to Ausculation Bilateral. absent: Rales, Rhonchi, Wheezes - Cardiovascular Exam Cardiovascular Exam: REGULAR RHYTHM, +S1, +S2. absent: Gallop, JVD, Murmur - GI/Abdominal Exam GI & Abdominal Exam: Soft. absent: Tenderness - Extremities Exam Extremities Exam: Full ROM, Normal Capillary Refill. absent: Calf Tenderness, Joint Swelling, Pedal Edema Assessment and Plan - Assessment and Plan (Free Text) Assessment: Gout; HTN; ESRD s/p AVFistula Advise for Fistula maturity Cont meds/ supportive care
[2017-12-25] MEDS: Metoprolol Succinate 50 mg XL Tab PO SCH (09:15)
[2017-12-25] MEDS: Magnesium Oxide 400 mg Tab UD PO SCH (09:15)
[2017-12-25] MEDS: POLYETHYLENE GLYCOL 3350 17 GM/Dose PACKET PO SCH (09:16)
--- NOTE | 2017-12-25 09:53 | CP.PCM.PN ---
Subjective - Date & Time of Evaluation Date of Evaluation: 12/25/17 Time of Evaluation: 09:51 - Subjective Subjective: tolerating HD no complaints AVF with good bruit no edema Objective - Vital Signs/Intake and Output Vital Signs (last 24 hours): Temp Pulse Resp BP Pulse Ox 98.4 F 108 H 20 157/82 H 99 12/25/17 07:25 12/25/17 09:14 12/25/17 07:25 12/25/17 09:14 12/25/17 07:25 - Medications Medications: Current Medications Amlodipine Besylate (Norvasc) 10 mg PO DAILY [facility] Last Admin: 12/25/17 09:15 Dose: 10 mg Calcium Acetate (Phoslo) 1,334 mg PO TIDCC [facility] Last Admin: 12/25/17 07:49 Dose: 1,334 mg Colchicine (Colocrys) 0.3 mg PO DAILY [facility] Last Admin: 12/25/17 09:15 Dose: 0.3 mg Epoetin Taj (Procrit) 10,000 unit IV MWF [facility] Last Admin: 12/24/17 09:55 Dose: 10,000 unit Famotidine (Pepcid) 20 mg PO DAILY [facility] Last Admin: 12/25/17 09:15 Dose: 20 mg Magnesium Oxide (Mag-Ox) 400 mg PO DAILY [facility] Last Admin: 12/25/17 09:15 Dose: 400 mg Metoprolol Succinate (Toprol Xl) 50 mg PO DAILY [facility] Last Admin: 12/25/17 09:15 Dose: 50 mg Polyethylene Glycol (Miralax) 17 gm PO DAILY [facility] Last Admin: 12/25/17 09:16 Dose: 17 gm Prednisone (Prednisone Tab) 30 mg PO DAILY [facility] Last Admin: 12/25/17 09:15 Dose: 30 mg - Labs Labs: 12/25/17 06:36 12/22/17 13:59 PT 10.7 SECONDS (9.7-12.2) 12/20/17 06:24 INR 1.0 12/20/17 06:24 APTT 27 SECONDS (21-34) 12/20/17 06:24 - Constitutional Appears: Non-toxic, No Acute Distress - Head Exam Head Exam: ATRAUMATIC, NORMAL INSPECTION - Eye Exam Eye Exam: EOMI, Normal appearance - ENT Exam ENT Exam: Mucous Membranes Moist - Neck Exam Neck Exam: Full ROM. absent: Lymphadenopathy - Respiratory Exam Respiratory Exam: Clear to Ausculation Bilateral - Cardiovascular Exam Cardiovascular Exam: REGULAR RHYTHM. absent: Rubs - GI/Abdominal Exam GI & Abdominal Exam: Soft, Normal Bowel Sounds - Extremities Exam Additional comments: left TRACY with good bruit - Neurological Exam Neurological Exam: Alert, Awake Assessment and Plan - Assessment and Plan (Free Text) Assessment: new ESRD tolerating treatment await placement at outpatient unit
[2017-12-26] MEDS: Magnesium Oxide 400 mg Tab UD PO SCH (09:11)
[2017-12-26] MEDS: POLYETHYLENE GLYCOL 3350 17 GM/Dose PACKET PO SCH (09:12)
[2017-12-26] MEDS: Metoprolol Succinate 50 mg XL Tab PO SCH (09:12)
[2017-12-27] MEDS: Epoetin Alfa 10,000 unit/ml Dialysis IV SCH ×2 (08:45→23:30)
--- NOTE | 2017-12-27 09:24 | CP.PCM.PN ---
Subjective - Date & Time of Evaluation Date of Evaluation: 12/27/17 Time of Evaluation: 08:14 - Subjective Subjective: Pt no compalin; no CP, no SOB, no edema, no cough, no diarrhea Objective - Vital Signs/Intake and Output Vital Signs (last 24 hours): Temp Pulse Resp BP Pulse Ox 98.0 F 90 18 134/79 99 12/27/17 07:00 12/27/17 07:00 12/27/17 07:00 12/27/17 07:00 12/27/17 07:00 Intake and Output: 12/27/17 12/27/17 06:59 18:59 Intake Total 400 Balance 400 - Medications Medications: Current Medications Amlodipine Besylate (Norvasc) 10 mg PO DAILY [facility] Last Admin: 12/26/17 09:12 Dose: 10 mg Calcium Acetate (Phoslo) 1,334 mg PO TIDCC [facility] Last Admin: 12/27/17 08:13 Dose: 1,334 mg Colchicine (Colocrys) 0.3 mg PO DAILY [facility] Last Admin: 12/26/17 09:12 Dose: 0.3 mg Epoetin Taj (Procrit) 10,000 unit IV MWF [facility] Last Admin: 12/24/17 09:55 Dose: 10,000 unit Famotidine (Pepcid) 20 mg PO DAILY [facility] Last Admin: 12/26/17 09:12 Dose: 20 mg Magnesium Oxide (Mag-Ox) 400 mg PO DAILY [facility] Last Admin: 12/26/17 09:11 Dose: 400 mg Metoprolol Succinate (Toprol Xl) 50 mg PO DAILY [facility] Last Admin: 12/26/17 09:12 Dose: 50 mg Polyethylene Glycol (Miralax) 17 gm PO DAILY [facility] Last Admin: 12/26/17 09:12 Dose: 17 gm Prednisone (Prednisone Tab) 20 mg PO DAILY [facility] - Labs Labs: 12/25/17 06:36 12/22/17 13:59 PT 10.7 SECONDS (9.7-12.2) 12/20/17 06:24 INR 1.0 12/20/17 06:24 APTT 27 SECONDS (21-34) 12/20/17 06:24 - Constitutional Appears: No Acute Distress - ENT Exam ENT Exam: Mucous Membranes Moist - Neck Exam Neck Exam: Full ROM. absent: Lymphadenopathy, Normal Inspection - Respiratory Exam Respiratory Exam: Clear to Ausculation Bilateral, NORMAL BREATHING PATTERN. absent: Rales, Rhonchi, Wheezes - Cardiovascular Exam Cardiovascular Exam: REGULAR RHYTHM, +S1, +S2. absent: Gallop, JVD, Murmur - GI/Abdominal Exam GI & Abdominal Exam: Soft. absent: Tenderness - Extremities Exam Extremities Exam: Full ROM, Normal Capillary Refill. absent: Calf Tenderness, Joint Swelling, Pedal Edema Assessment and Plan - Assessment and Plan (Free Text) Assessment: HTN, Gout, ESRD Cont meds/ supportive For HD placement
[2017-12-27] MEDS: POLYETHYLENE GLYCOL 3350 17 GM/Dose PACKET PO SCH ×2 (10:00→13:06)
[2017-12-27] MEDS: Metoprolol Succinate 50 mg XL Tab PO SCH ×2 (10:00→13:04)
[2017-12-27] MEDS: Magnesium Oxide 400 mg Tab UD PO SCH ×2 (10:00→13:03)
--- NOTE | 2017-12-27 12:17 | CP.PCM.PN ---
Subjective - Date & Time of Evaluation Date of Evaluation: 12/27/17 Time of Evaluation: 12:16 - Subjective Subjective: seen at dialysis- tolerating well UF 800ml HTN controlled gout controlled awaiting HD placement Objective - Vital Signs/Intake and Output Vital Signs (last 24 hours): Temp Pulse Resp BP Pulse Ox 97.9 F 91 H 18 143/90 95 12/27/17 09:30 12/27/17 11:30 12/27/17 11:30 12/27/17 11:30 12/27/17 11:30 Intake and Output: 12/27/17 12/27/17 06:59 18:59 Intake Total 400 Balance 400 - Medications Medications: Current Medications Amlodipine Besylate (Norvasc) 10 mg PO DAILY [facility] Last Admin: 12/27/17 10:00 Dose: Not Given Calcium Acetate (Phoslo) 1,334 mg PO TIDCC [facility] Last Admin: 12/27/17 08:13 Dose: 1,334 mg Colchicine (Colocrys) 0.3 mg PO DAILY [facility] Last Admin: 12/27/17 10:00 Dose: Not Given Epoetin Taj (Procrit) 10,000 unit IV MWF [facility] Last Admin: 12/24/17 09:55 Dose: 10,000 unit Famotidine (Pepcid) 20 mg PO DAILY [facility] Last Admin: 12/27/17 10:00 Dose: Not Given Magnesium Oxide (Mag-Ox) 400 mg PO DAILY [facility] Last Admin: 12/27/17 10:00 Dose: Not Given Metoprolol Succinate (Toprol Xl) 50 mg PO DAILY [facility] Last Admin: 12/27/17 10:00 Dose: Not Given Polyethylene Glycol (Miralax) 17 gm PO DAILY [facility] Last Admin: 12/27/17 10:00 Dose: Not Given Prednisone (Prednisone Tab) 20 mg PO DAILY [facility] Last Admin: 12/27/17 10:00 Dose: Not Given - Labs Labs: 12/25/17 06:36 12/22/17 13:59 PT 10.7 SECONDS (9.7-12.2) 12/20/17 06:24 INR 1.0 12/20/17 06:24 APTT 27 SECONDS (21-34) 12/20/17 06:24 - Constitutional Appears: No Acute Distress, Chronically Ill - Head Exam Head Exam: ATRAUMATIC, NORMAL INSPECTION - Eye Exam Eye Exam: EOMI, Normal appearance - Neck Exam Neck Exam: Normal Inspection. absent: Tenderness - Respiratory Exam Respiratory Exam: Clear to Ausculation Bilateral, NORMAL BREATHING PATTERN - Cardiovascular Exam Cardiovascular Exam: REGULAR RHYTHM, +S1 - GI/Abdominal Exam GI & Abdominal Exam: Soft. absent: Tenderness - Neurological Exam Neurological Exam: Alert, CN II-XII Intact - Skin Skin Exam: Dry, Warm Assessment and Plan (1) Hereditary nephritis Status: Acute (2) ESRD (end stage renal disease) Status: Acute (3) Hypertension Status: Acute (4) Acute gout Status: Acute - Assessment and Plan (Free Text) Plan: dialysis MWF same meds outpt HD placement
--- NOTE | 2017-12-27 14:19 | CP.PCM.PN ---
Subjective - Date & Time of Evaluation Date of Evaluation: 12/27/17 Time of Evaluation: 14:16 - Subjective Subjective: Orthopedic follow up Dr. Vazquez Patient states he has no pain in elbow or foot/ankle. He does not have any new joint pains. Denies stiffness, swelling, numbness/tingling. Review of Systems - Review of Systems All systems: reviewed and no additional remarkable complaints except - Constitutional Additional comments: no fever/chills - Cardiovascular Cardiovascular: UNREMARKABLE - Respiratory Respiratory: UNREMARKABLE - Gastrointestinal Gastrointestinal: UNREMARKABLE - Musculoskeletal Musculoskeletal: As Par HPI - Integumentary Integumentary: UNREMARKABLE - Neurological Neurological: As Per HPI - Hematologic/Lymphatic Hematologic: UNREMARKABLE Objective - Vital Signs/Intake and Output Vital Signs (last 24 hours): Temp Pulse Resp BP Pulse Ox 97.9 F 85 15 138/82 96 12/27/17 09:30 12/27/17 12:15 12/27/17 12:15 12/27/17 12:15 12/27/17 12:15 Intake and Output: 12/27/17 12/27/17 06:59 18:59 Intake Total 400 Balance 400 - Medications Medications: Current Medications Amlodipine Besylate (Norvasc) 10 mg PO DAILY [facility] Last Admin: 12/27/17 13:03 Dose: 10 mg Calcium Acetate (Phoslo) 1,334 mg PO TIDCC [facility] Last Admin: 12/27/17 08:13 Dose: 1,334 mg Colchicine (Colocrys) 0.3 mg PO DAILY [facility] Last Admin: 12/27/17 13:04 Dose: 0.3 mg Epoetin Taj (Procrit) 10,000 unit IV MWF [facility] Last Admin: 12/27/17 08:45 Dose: Not Given Famotidine (Pepcid) 20 mg PO DAILY [facility] Last Admin: 12/27/17 13:04 Dose: 20 mg Magnesium Oxide (Mag-Ox) 400 mg PO DAILY [facility] Last Admin: 12/27/17 13:03 Dose: 400 mg Metoprolol Succinate (Toprol Xl) 50 mg PO DAILY [facility] Last Admin: 12/27/17 13:04 Dose: 50 mg Polyethylene Glycol (Miralax) 17 gm PO DAILY [facility] Last Admin: 12/27/17 13:06 Dose: 17 gm Prednisone (Prednisone Tab) 20 mg PO DAILY [facility] Last Admin: 12/27/17 13:03 Dose: 20 mg - Labs Labs: 12/25/17 06:36 12/22/17 13:59 PT 10.7 SECONDS (9.7-12.2) 12/20/17 06:24 INR 1.0 12/20/17 06:24 APTT 27 SECONDS (21-34) 12/20/17 06:24 - Constitutional Appears: Well, No Acute Distress - Head Exam Head Exam: ATRAUMATIC - Neck Exam Neck Exam: Full ROM - Respiratory Exam Respiratory Exam: NORMAL BREATHING PATTERN - Cardiovascular Exam Additional comments: +radial pulses, +DP/PT pulses - Extremities Exam Additional comments: swelling to right elbow and left foot resolved Full pain free ROM right elbow, non tender, sensation intact Left foot/ankle full pain free ROM without tenderness no joint swelling appreciated calves soft NT neg homans - Neurological Exam Neurological Exam: Alert, Awake, Oriented x3 Neuro motor strength exam: Right Upper Extremity: 5, Left Lower Extremity: 5 - Psychiatric Exam Psychiatric exam: Normal Affect, Normal Mood - Skin Skin Exam: Dry, Intact, Normal Color, Warm Assessment and Plan (1) Acute gout due to renal impairment involving elbow Assessment & Plan: resolved orthopedically stable awaiting placement f/u Dr. Vazquez in office prn will sign off, reconsult as needed d/w Dr. Vazquez, agrees with above Status: Acute (2) Acute gout due to renal impairment involving ankle Status: Acute
[2017-12-28 07:50] LABS: BASO % 0.1 % (0.0-2.0); EOS % 0.1 % (0.0-4.0); HEMOGLOBIN 10.1 g/dL (12.0-18.0); LYMPH # 2.1 K/uL (1.0-4.3); LYMPH % 6.1 % (20.0-40.0); MEAN CORPUSCULAR HEMOGLOBIN 27.2 pg (27.0-31.0); MEAN CORPUSCULAR HGB CONC 32.1 g/dL (33.0-37.0); MEAN PLATELET VOLUME 7.8 fL (7.2-11.7); MONO # 2.6 K/uL (0.0-0.8); MONO % 7.5 % (0.0-10.0); NEUT # 30.3 K/uL (1.8-7.0); NEUT % 86.2 % (50.0-75.0); PLATELET COUNT 215 K/uL (130-400); RED CELL DISTRIBUTION WIDTH 16.2 % (11.5-14.5)
[2017-12-28 08:06] LABS: MEAN CELL VOLUME 83.7 fL (80.0-94.0); WHITE BLOOD COUNT 35.1 K/uL (4.8-10.8)
--- NOTE | 2017-12-28 08:32 | CP.PCM.PN ---
Subjective - Date & Time of Evaluation Date of Evaluation: 12/27/17 Time of Evaluation: 08:15 - Subjective Subjective: Pt no complain; Good appetite, no joint pain. No CP, no SOb, no edema, no cough, no n/v Objective - Vital Signs/Intake and Output Vital Signs (last 24 hours): Temp Pulse Resp BP Pulse Ox 98 F 108 H 20 119/74 97 12/27/17 23:05 12/27/17 23:05 12/27/17 23:05 12/27/17 23:05 12/27/17 23:05 - Medications Medications: Current Medications Amlodipine Besylate (Norvasc) 10 mg PO DAILY [facility] Last Admin: 12/27/17 13:03 Dose: 10 mg Calcium Acetate (Phoslo) 1,334 mg PO TIDCC [facility] Last Admin: 12/28/17 08:24 Dose: 1,334 mg Colchicine (Colocrys) 0.3 mg PO DAILY [facility] Last Admin: 12/27/17 13:04 Dose: 0.3 mg Epoetin Taj (Procrit) 10,000 unit IV MWF [facility] Last Admin: 12/27/17 23:30 Dose: 10,000 unit Famotidine (Pepcid) 20 mg PO DAILY [facility] Last Admin: 12/27/17 13:04 Dose: 20 mg Magnesium Oxide (Mag-Ox) 400 mg PO DAILY [facility] Last Admin: 12/27/17 13:03 Dose: 400 mg Metoprolol Succinate (Toprol Xl) 50 mg PO DAILY [facility] Last Admin: 12/27/17 13:04 Dose: 50 mg Polyethylene Glycol (Miralax) 17 gm PO DAILY [facility] Last Admin: 12/27/17 13:06 Dose: 17 gm Prednisone (Prednisone Tab) 20 mg PO DAILY [facility] Last Admin: 12/27/17 13:03 Dose: 20 mg - Labs Labs: 12/28/17 07:41 12/22/17 13:59 PT 10.7 SECONDS (9.7-12.2) 12/20/17 06:24 INR 1.0 12/20/17 06:24 APTT 27 SECONDS (21-34) 12/20/17 06:24 - Constitutional Appears: No Acute Distress - Eye Exam Eye Exam: Normal appearance - ENT Exam ENT Exam: Mucous Membranes Moist - Neck Exam Neck Exam: Full ROM. absent: Lymphadenopathy, Thyromegaly - Respiratory Exam Respiratory Exam: Clear to Ausculation Bilateral. absent: Rales, Rhonchi, Wheezes - Cardiovascular Exam Cardiovascular Exam: REGULAR RHYTHM, +S1, +S2. absent: Gallop, JVD - GI/Abdominal Exam GI & Abdominal Exam: Soft. absent: Tenderness - Extremities Exam Extremities Exam: Full ROM, Joint Swelling, Normal Capillary Refill. absent: Calf Tenderness, Pedal Edema Assessment and Plan - Assessment and Plan (Free Text) Plan: ESRD s/p AV fistula HTN, Gout Cont meds/ for discharge On prednisone taper
[2017-12-28 09:40] LABS: BANDS 2 % (0-2); LYMPHOCYTE 12 % (20-40); MONOCYTE 8 % (0-10); NEUTROPHIL 78 % (50-75); TOTAL CELLS COUNTED 100
[2017-12-28 09:41] LABS: ANISOCYTOSIS SLIGHT; HYPOCHROMIC SLIGHT; PLATELET ESTIMATE NORMAL (NORMAL); POLYCHROMIC SLIGHT
[2017-12-28] MEDS: POLYETHYLENE GLYCOL 3350 17 GM/Dose PACKET PO SCH (09:53)
[2017-12-28] MEDS: Magnesium Oxide 400 mg Tab UD PO SCH (09:53)
[2017-12-28] MEDS: Metoprolol Succinate 50 mg XL Tab PO SCH (09:53)
--- NOTE | 2017-12-28 10:55 | CP.PCM.PN ---
Subjective - Date & Time of Evaluation Date of Evaluation: 12/28/17 Time of Evaluation: 10:53 - Subjective Subjective: stable dialysis 7/2 feels better steroids being tapered awaiting placement Objective - Vital Signs/Intake and Output Vital Signs (last 24 hours): Temp Pulse Resp BP Pulse Ox 97.9 F 100 H 18 141/84 99 12/28/17 07:00 12/28/17 07:00 12/28/17 07:00 12/28/17 07:00 12/28/17 07:00 - Medications Medications: Current Medications Amlodipine Besylate (Norvasc) 10 mg PO DAILY [facility] Last Admin: 12/28/17 09:53 Dose: 10 mg Calcium Acetate (Phoslo) 1,334 mg PO TIDCC [facility] Last Admin: 12/28/17 08:24 Dose: 1,334 mg Colchicine (Colocrys) 0.3 mg PO DAILY [facility] Last Admin: 12/28/17 09:53 Dose: 0.3 mg Epoetin Taj (Procrit) 10,000 unit IV MWF [facility] Last Admin: 12/27/17 23:30 Dose: 10,000 unit Famotidine (Pepcid) 20 mg PO DAILY [facility] Last Admin: 12/28/17 09:53 Dose: 20 mg Magnesium Oxide (Mag-Ox) 400 mg PO DAILY [facility] Last Admin: 12/28/17 09:53 Dose: 400 mg Metoprolol Succinate (Toprol Xl) 50 mg PO DAILY [facility] Last Admin: 12/28/17 09:53 Dose: 50 mg Polyethylene Glycol (Miralax) 17 gm PO DAILY [facility] Last Admin: 12/28/17 09:53 Dose: 17 gm Prednisone (Prednisone Tab) 20 mg PO DAILY [facility] Last Admin: 12/28/17 09:53 Dose: 20 mg - Labs Labs: 12/28/17 07:41 12/22/17 13:59 PT 10.7 SECONDS (9.7-12.2) 12/20/17 06:24 INR 1.0 12/20/17 06:24 APTT 27 SECONDS (21-34) 12/20/17 06:24 - Constitutional Appears: No Acute Distress, Chronically Ill - Head Exam Head Exam: ATRAUMATIC, NORMAL INSPECTION - Eye Exam Eye Exam: EOMI, Normal appearance - Neck Exam Neck Exam: Normal Inspection. absent: Tenderness - Respiratory Exam Respiratory Exam: Clear to Ausculation Bilateral, NORMAL BREATHING PATTERN - Cardiovascular Exam Cardiovascular Exam: REGULAR RHYTHM, +S1 - GI/Abdominal Exam GI & Abdominal Exam: Soft. absent: Tenderness - Extremities Exam Extremities Exam: Normal Inspection. absent: Tenderness - Neurological Exam Neurological Exam: Alert, CN II-XII Intact - Skin Skin Exam: Dry, Warm Assessment and Plan (1) Hereditary nephritis Status: Acute (2) ESRD (end stage renal disease) Status: Acute (3) Hypertension Status: Acute (4) Acute gout Status: Acute - Assessment and Plan (Free Text) Plan: dialysis MWF await AV access maturation await placement of HD
--- NOTE | 2017-12-29 08:57 | CP.PCM.PN ---
Subjective - Date & Time of Evaluation Date of Evaluation: 12/29/17 Time of Evaluation: 08:56 - Subjective Subjective: sgtable HD 12/28 HTN controlled feels well now Objective - Vital Signs/Intake and Output Vital Signs (last 24 hours): Temp Pulse Resp BP Pulse Ox 97.9 F 97 H 20 135/74 98 12/29/17 07:00 12/29/17 07:00 12/29/17 07:00 12/29/17 07:00 12/29/17 07:00 - Medications Medications: Current Medications Amlodipine Besylate (Norvasc) 10 mg PO DAILY [facility] Last Admin: 12/28/17 09:53 Dose: 10 mg Calcium Acetate (Phoslo) 1,334 mg PO TIDCC [facility] Last Admin: 12/28/17 17:22 Dose: 1,334 mg Colchicine (Colocrys) 0.3 mg PO DAILY [facility] Last Admin: 12/28/17 09:53 Dose: 0.3 mg Epoetin Taj (Procrit) 10,000 unit IV MWF [facility] Last Admin: 12/27/17 23:30 Dose: 10,000 unit Famotidine (Pepcid) 20 mg PO DAILY [facility] Last Admin: 12/28/17 09:53 Dose: 20 mg Magnesium Oxide (Mag-Ox) 400 mg PO DAILY [facility] Last Admin: 12/28/17 09:53 Dose: 400 mg Metoprolol Succinate (Toprol Xl) 50 mg PO DAILY [facility] Last Admin: 12/28/17 09:53 Dose: 50 mg Polyethylene Glycol (Miralax) 17 gm PO DAILY [facility] Last Admin: 12/28/17 09:53 Dose: 17 gm Prednisone (Prednisone Tab) 20 mg PO DAILY [facility] Last Admin: 12/28/17 09:53 Dose: 20 mg - Labs Labs: 12/28/17 07:41 12/22/17 13:59 PT 10.7 SECONDS (9.7-12.2) 12/20/17 06:24 INR 1.0 12/20/17 06:24 APTT 27 SECONDS (21-34) 12/20/17 06:24 - Constitutional Appears: No Acute Distress, Chronically Ill - Head Exam Head Exam: ATRAUMATIC, NORMAL INSPECTION - Eye Exam Eye Exam: EOMI, Normal appearance - Neck Exam Neck Exam: Normal Inspection. absent: Tenderness - Respiratory Exam Respiratory Exam: Clear to Ausculation Bilateral, NORMAL BREATHING PATTERN - Cardiovascular Exam Cardiovascular Exam: REGULAR RHYTHM, +S1 - Extremities Exam Extremities Exam: Normal Inspection. absent: Tenderness - Neurological Exam Neurological Exam: Alert, CN II-XII Intact - Skin Skin Exam: Dry, Warm Assessment and Plan (1) Hereditary nephritis Status: Acute (2) ESRD (end stage renal disease) Status: Acute (3) Hypertension Status: Acute (4) Acute gout Status: Acute - Assessment and Plan (Free Text) Plan: same HD MWF await HD placement
[2017-12-29] MEDS: POLYETHYLENE GLYCOL 3350 17 GM/Dose PACKET PO SCH (09:47)
[2017-12-29] MEDS: Metoprolol Succinate 50 mg XL Tab PO SCH (09:47)
[2017-12-29] MEDS: Magnesium Oxide 400 mg Tab UD PO SCH (09:47)
[2017-12-29] MEDS: Epoetin Alfa 10,000 unit/ml Dialysis IV SCH (19:00)
--- NOTE | 2017-12-30 09:33 | CP.PCM.PN ---
Subjective - Date & Time of Evaluation Date of Evaluation: 12/30/17 Time of Evaluation: 09:30 - Subjective Subjective: alert, c/o left arm ecchymosis, warmth stable dialysis 12/29 [facility] [place]essa contacted me- outpt orders given no other complaint increased leukocytosis noted Objective - Vital Signs/Intake and Output Vital Signs (last 24 hours): Temp Pulse Resp BP Pulse Ox 98.1 F 108 H 18 125/75 99 12/30/17 08:00 12/30/17 08:00 12/30/17 08:00 12/30/17 08:00 12/30/17 08:00 - Medications Medications: Current Medications Amlodipine Besylate (Norvasc) 10 mg PO DAILY [facility] Last Admin: 12/29/17 09:47 Dose: 10 mg Calcium Acetate (Phoslo) 1,334 mg PO TIDCC [facility] Last Admin: 12/30/17 08:19 Dose: 1,334 mg Colchicine (Colocrys) 0.3 mg PO DAILY [facility] Last Admin: 12/29/17 09:47 Dose: 0.3 mg Epoetin Taj (Procrit) 10,000 unit IV MWF [facility] Last Admin: 12/29/17 19:00 Dose: 10,000 unit Famotidine (Pepcid) 20 mg PO DAILY [facility] Last Admin: 12/29/17 09:47 Dose: 20 mg Metoprolol Succinate (Toprol Xl) 50 mg PO DAILY [facility] Last Admin: 12/29/17 09:47 Dose: 50 mg Polyethylene Glycol (Miralax) 17 gm PO DAILY [facility] Last Admin: 12/29/17 09:47 Dose: 17 gm Prednisone (Prednisone Tab) 20 mg PO DAILY [facility] Last Admin: 12/29/17 09:48 Dose: 20 mg - Labs Labs: 12/28/17 07:41 12/22/17 13:59 PT 10.7 SECONDS (9.7-12.2) 12/20/17 06:24 INR 1.0 12/20/17 06:24 APTT 27 SECONDS (21-34) 12/20/17 06:24 - Constitutional Appears: No Acute Distress, Chronically Ill - Head Exam Head Exam: ATRAUMATIC, NORMAL INSPECTION - Eye Exam Eye Exam: EOMI, Normal appearance - Neck Exam Neck Exam: Normal Inspection. absent: Tenderness - Respiratory Exam Respiratory Exam: Clear to Ausculation Bilateral, NORMAL BREATHING PATTERN - Cardiovascular Exam Cardiovascular Exam: REGULAR RHYTHM, +S1 - GI/Abdominal Exam GI & Abdominal Exam: Soft. absent: Tenderness - Extremities Exam Extremities Exam: Normal Inspection. absent: Tenderness - Neurological Exam Neurological Exam: Awake, CN II-XII Intact - Skin Skin Exam: Dry, Warm Assessment and Plan (1) Hereditary nephritis Status: Acute (2) ESRD (end stage renal disease) Status: Acute (3) Hypertension Status: Acute (4) Acute gout Status: Acute - Assessment and Plan (Free Text) Plan: blood cultures cover with cipro
[2017-12-30] MEDS: POLYETHYLENE GLYCOL 3350 17 GM/Dose PACKET PO SCH (10:28)
[2017-12-30] MEDS: Metoprolol Succinate 50 mg XL Tab PO SCH (10:29)
--- NOTE | 2017-12-30 16:40 | CP.PCM.PN ---
Subjective - Date & Time of Evaluation Date of Evaluation: 12/30/17 Time of Evaluation: 16:37 - Subjective Subjective: S: Feels manuel. Bored. Objective - Vital Signs/Intake and Output Vital Signs (last 24 hours): Temp Pulse Resp BP Pulse Ox 98.1 F 108 H 18 125/75 99 12/30/17 08:00 12/30/17 08:00 12/30/17 08:00 12/30/17 08:00 12/30/17 08:00 - Medications Medications: Current Medications Amlodipine Besylate (Norvasc) 10 mg PO DAILY [facility] Last Admin: 12/30/17 10:28 Dose: 10 mg Calcium Acetate (Phoslo) 1,334 mg PO TIDCC [facility] Last Admin: 12/30/17 12:45 Dose: 1,334 mg Ciprofloxacin (Cipro) 500 mg PO DAILY [facility] PRN Reason: Protocol Last Admin: 12/30/17 14:21 Dose: 500 mg Colchicine (Colocrys) 0.3 mg PO DAILY [facility] Last Admin: 12/30/17 10:28 Dose: 0.3 mg Epoetin Taj (Procrit) 10,000 unit IV MWF [facility] Last Admin: 12/29/17 19:00 Dose: 10,000 unit Famotidine (Pepcid) 20 mg PO DAILY [facility] Last Admin: 12/30/17 10:28 Dose: 20 mg Metoprolol Succinate (Toprol Xl) 50 mg PO DAILY [facility] Last Admin: 12/30/17 10:29 Dose: 50 mg Polyethylene Glycol (Miralax) 17 gm PO DAILY [facility] Last Admin: 12/30/17 10:28 Dose: Not Given Prednisone (Prednisone Tab) 20 mg PO DAILY [facility] Last Admin: 12/30/17 10:29 Dose: 20 mg - Labs Labs: 12/28/17 07:41 12/22/17 13:59 PT 10.7 SECONDS (9.7-12.2) 12/20/17 06:24 INR 1.0 12/20/17 06:24 APTT 27 SECONDS (21-34) 12/20/17 06:24 - Constitutional Appears: Non-toxic - Head Exam Head Exam: NORMAL INSPECTION - Eye Exam Eye Exam: Normal appearance - ENT Exam ENT Exam: Normal Exam - Neck Exam Neck Exam: Normal Inspection - Respiratory Exam Respiratory Exam: NORMAL BREATHING PATTERN - Cardiovascular Exam Cardiovascular Exam: REGULAR RHYTHM - GI/Abdominal Exam GI & Abdominal Exam: Soft - Rectal Exam Rectal Exam: Deferred - Neurological Exam Neurological Exam: Alert Assessment and Plan (1) Hereditary nephritis Status: Chronic (2) Renal failure Status: Acute (3) Gout Status: Acute (4) HTN (hypertension) Status: Chronic - Assessment and Plan (Free Text) Assessment: A/P: Continue medication. Awaiting Dialysis placement
--- NOTE | 2017-12-31 08:19 | CP.PCM.PN ---
Subjective - Date & Time of Evaluation Date of Evaluation: 12/31/17 Time of Evaluation: 08:12 - Subjective Subjective: Pt no complain; (+)frustrated c/o not going home No0 CP, no SOB, no cough, no diarrhea/ no constipation; Feels much stronger than he came in Objective - Vital Signs/Intake and Output Vital Signs (last 24 hours): Temp Pulse Resp BP Pulse Ox 97.9 F 97 H 20 123/72 99 12/30/17 23:05 12/30/17 23:05 12/30/17 23:05 12/30/17 23:05 12/30/17 23:05 Intake and Output: 12/31/17 12/31/17 06:59 18:59 Intake Total 480 Balance 480 - Medications Medications: Current Medications Amlodipine Besylate (Norvasc) 10 mg PO DAILY [facility] Last Admin: 12/30/17 10:28 Dose: 10 mg Calcium Acetate (Phoslo) 1,334 mg PO TIDCC [facility] Last Admin: 12/30/17 17:01 Dose: 1,334 mg Ciprofloxacin (Cipro) 500 mg PO DAILY [facility] PRN Reason: Protocol Last Admin: 12/30/17 14:21 Dose: 500 mg Colchicine (Colocrys) 0.3 mg PO DAILY [facility] Last Admin: 12/30/17 10:28 Dose: 0.3 mg Epoetin Taj (Procrit) 10,000 unit IV MWF [facility] Last Admin: 12/29/17 19:00 Dose: 10,000 unit Famotidine (Pepcid) 20 mg PO DAILY [facility] Last Admin: 12/30/17 10:28 Dose: 20 mg Metoprolol Succinate (Toprol Xl) 50 mg PO DAILY [facility] Last Admin: 12/30/17 10:29 Dose: 50 mg Polyethylene Glycol (Miralax) 17 gm PO DAILY [facility] Last Admin: 12/30/17 10:28 Dose: Not Given Prednisone (Prednisone Tab) 10 mg PO DAILY [facility] - Labs Labs: 12/28/17 07:41 12/22/17 13:59 PT 10.7 SECONDS (9.7-12.2) 12/20/17 06:24 INR 1.0 12/20/17 06:24 APTT 27 SECONDS (21-34) 12/20/17 06:24 - Constitutional Appears: No Acute Distress - Eye Exam Eye Exam: Normal appearance - ENT Exam ENT Exam: Mucous Membranes Moist. absent: Mucous Membranes Dry - Neck Exam Neck Exam: Full ROM. absent: Lymphadenopathy, Meningismus, Normal Inspection - Respiratory Exam Respiratory Exam: Clear to Ausculation Bilateral. absent: Rales, Rhonchi, Wheezes - Cardiovascular Exam Cardiovascular Exam: REGULAR RHYTHM, +S1, +S2. absent: Gallop, JVD, Murmur - GI/Abdominal Exam GI & Abdominal Exam: Soft. absent: Tenderness, Mass - Extremities Exam Extremities Exam: Full ROM, Normal Capillary Refill. absent: Calf Tenderness, Joint Swelling, Pedal Edema Assessment and Plan - Assessment and Plan (Free Text) Assessment: ESRD s/p AV Fistula HTN, Gout Cont meds recheck CBC; Dec steroid For OPD HD
[2017-12-31 09:06] VITALS: O2SAT 96
[2017-12-31 09:36] VITALS: PULSE 100; RESP 18; TEMP 97.9
[2017-12-31] MEDS: Epoetin Alfa 10,000 unit/ml Dialysis IV SCH (11:11)
[2017-12-31 12:02] VITALS: BP 144/86
[2017-12-31] MEDS: Metoprolol Succinate 50 mg XL Tab PO SCH (13:54)
[2017-12-31] MEDS: POLYETHYLENE GLYCOL 3350 17 GM/Dose PACKET PO SCH (13:57)
--- NOTE | 2017-12-31 13:59 | CP.PCM.PN ---
Subjective - Date & Time of Evaluation Date of Evaluation: 12/31/17 Time of Evaluation: 13:57 - Subjective Subjective: stable dialysis now feels better gout controlled HTN controlled outpt dialysis being arranged Objective - Vital Signs/Intake and Output Vital Signs (last 24 hours): Temp Pulse Resp BP Pulse Ox 97.9 F 100 H 18 144/86 96 12/31/17 08:55 12/31/17 08:55 12/31/17 08:55 12/31/17 12:00 12/31/17 07:15 Intake and Output: 12/31/17 12/31/17 06:59 18:59 Intake Total 480 Balance 480 - Medications Medications: Current Medications Amlodipine Besylate (Norvasc) 10 mg PO DAILY [facility] Last Admin: 12/30/17 10:28 Dose: 10 mg Calcium Acetate (Phoslo) 1,334 mg PO TIDCC [facility] Last Admin: 12/30/17 17:01 Dose: 1,334 mg Ciprofloxacin (Cipro) 500 mg PO DAILY [facility] PRN Reason: Protocol Last Admin: 12/30/17 14:21 Dose: 500 mg Colchicine (Colocrys) 0.3 mg PO DAILY [facility] Last Admin: 12/30/17 10:28 Dose: 0.3 mg Epoetin Taj (Procrit) 10,000 unit IV MWF [facility] Last Admin: 12/31/17 11:11 Dose: 10,000 unit Famotidine (Pepcid) 20 mg PO DAILY [facility] Last Admin: 12/30/17 10:28 Dose: 20 mg Metoprolol Succinate (Toprol Xl) 50 mg PO DAILY [facility] Last Admin: 12/30/17 10:29 Dose: 50 mg Polyethylene Glycol (Miralax) 17 gm PO DAILY [facility] Last Admin: 12/30/17 10:28 Dose: Not Given Prednisone (Prednisone Tab) 10 mg PO DAILY [facility] - Labs Labs: 12/28/17 07:41 12/22/17 13:59 PT 10.7 SECONDS (9.7-12.2) 12/20/17 06:24 INR 1.0 12/20/17 06:24 APTT 27 SECONDS (21-34) 12/20/17 06:24 - Constitutional Appears: No Acute Distress, Chronically Ill - Head Exam Head Exam: ATRAUMATIC, NORMAL INSPECTION - Eye Exam Eye Exam: EOMI, Normal appearance - Neck Exam Neck Exam: Normal Inspection. absent: Tenderness - Respiratory Exam Respiratory Exam: Clear to Ausculation Bilateral, NORMAL BREATHING PATTERN - Cardiovascular Exam Cardiovascular Exam: REGULAR RHYTHM, +S1 - GI/Abdominal Exam GI & Abdominal Exam: Soft. absent: Tenderness - Extremities Exam Extremities Exam: Normal Inspection. absent: Tenderness - Neurological Exam Neurological Exam: Alert, CN II-XII Intact - Skin Skin Exam: Dry, Warm Assessment and Plan (1) Hereditary nephritis Status: Chronic (2) ESRD (end stage renal disease) Status: Acute (3) Hypertension Status: Acute (4) Acute gout Status: Acute - Assessment and Plan (Free Text) Plan: Same dialysis MWF Outpt dialysis arranged- likely discharge today
== END 2017-12-31 14:11 | disposition home or self-care (01) | DRG 120 ==
LOC: C.ER 23:59 → C.9E 12-14 05:29 → C.6T 12-14 05:50
PROVIDERS: ADMIT Internal Medicine; ATTEND Internal Medicine
PROC: 5A1D70Z Performance of Urinary Filtration, Intermittent, Less than 6 Hours Per Day (ICD-10-PCS; 2017-12-15)
PROC: 02HV33Z Insertion of Infusion Device into Superior Vena Cava, Percutaneous Approach (ICD-10-PCS; principal; 2017-12-15 16:15)
PROC: 5A1D70Z Performance of Urinary Filtration, Intermittent, Less than 6 Hours Per Day (ICD-10-PCS; 2017-12-17)
PROC: 5A1D70Z Performance of Urinary Filtration, Intermittent, Less than 6 Hours Per Day (ICD-10-PCS; 2017-12-20)
PROC: 031C0ZF Bypass Left Radial Artery to Lower Arm Vein, Open Approach (ICD-10-PCS; 2017-12-21)
PROC: 5A1D70Z Performance of Urinary Filtration, Intermittent, Less than 6 Hours Per Day (ICD-10-PCS; 2017-12-22)
PROC: 5A1D70Z Performance of Urinary Filtration, Intermittent, Less than 6 Hours Per Day (ICD-10-PCS; 2017-12-24)
PROC: 5A1D70Z Performance of Urinary Filtration, Intermittent, Less than 6 Hours Per Day (ICD-10-PCS; 2017-12-27)
PROC: 5A1D70Z Performance of Urinary Filtration, Intermittent, Less than 6 Hours Per Day (ICD-10-PCS; 2017-12-29)
PROC: 5A1D70Z Performance of Urinary Filtration, Intermittent, Less than 6 Hours Per Day (ICD-10-PCS; 2017-12-29)
DX: I13.2 Hypertensive heart and chronic kidney disease with heart failure and with stage 5 chronic kidney disease, or end stage renal disease (principal); E87.6 Hypokalemia; E87.2 Acidosis; I50.9 Heart failure, unspecified; N18.6 End stage renal disease; E78.5 Hyperlipidemia, unspecified; M10.30 Gout due to renal impairment, unspecified site; D72.829 Elevated white blood cell count, unspecified; D64.9 Anemia, unspecified; M77.30 Calcaneal spur, unspecified foot; Z99.2 Dependence on renal dialysis

== ENCOUNTER 2018-01-02 07:01 | Observation (INO) | payer OTHER ==
[2018-01-02 07:17] VITALS: BMI 22.6
--- NOTE | 2018-01-02 07:34 | C.PDOC ---
History Of Present Illness 42 year old male, with past medical history of End stage renal disease ( hemodialysis on Mon, Wed, Fri), Hypertension, and Gout, presents to ED with complaints of not feeling well since last night. Patient complains of chills, fever, mild cough, nasal congestion, chest tightness since yesterday. Denies sore throat, abdominal pain, nausea, vomiting, or headache. He also complains of right elbow pain for the past 3 weeks. Denies injury, trauma, or change in sensation. Time Seen by Provider: 01/02/18 07:27 Chief Complaint (Nursing): Fever History Per: Patient History/Exam Limitations: no limitations Onset/Duration Of Symptoms: Days Current Symptoms Are (Timing): Still Present Sick Contacts (Context): None Associated Symptoms: Fever, Chills, Cough, Nasal Congestion Ear Symptoms: Bilateral: None Recent travel outside of the [place]: No Additional History Per: Patient Past Medical History Reviewed: Historical Data, Nursing Documentation, Vital Signs Vital Signs: Last Vital Signs Temp 99.1 F 01/02/18 09:25 Pulse 110 H 01/02/18 09:25 Resp 18 01/02/18 09:25 BP 122/72 01/02/18 09:25 Pulse Ox 100 01/02/18 09:25 - Medical History PMH: CHF, HTN, Hypercholesterolemia, Chronic Kidney Disease Denies: COPD Family History: States: Unknown Family Hx - Social History Hx Tobacco Use: No Hx Alcohol Use: No Hx Substance Use: No - Immunization History Hx Tetanus Toxoid Vaccination: No Hx Influenza Vaccination: Yes Hx Pneumococcal Vaccination: No Review Of Systems Except As Marked, All Systems Reviewed And Found Negative. Constitutional: Positive for: Fever, Chills ENT: Positive for: Nose Congestion. Negative for: Ear Pain, Throat Pain Cardiovascular: Positive for: Chest Pain. Negative for: Palpitations, Edema Respiratory: Positive for: Cough, Shortness of Breath. Negative for: Sputum Gastrointestinal: Negative for: Nausea, Vomiting, Abdominal Pain Musculoskeletal: Positive for: Arm Pain (right elbow) Neurological: Negative for: Weakness, Numbness, Headache Physical Exam - Physical Exam Appears: Non-toxic, No Acute Distress Skin: Normal Color, Warm, Dry Head: Atraumatic, Normacephalic Eye(s): bilateral: Normal Inspection, EOMI Oral Mucosa: Moist Neck: Normal ROM, Supple Chest: Symmetrical, No Tenderness, Other (right chest wall dialysis catheter with clean dressing, no swelling, or tenderness) Cardiovascular: No Friction Rub, No JVD, Other (tachycardic) Respiratory: Normal Breath Sounds, No Accessory Muscle Use, No Rales, No Rhonchi , No Wheezing Gastrointestinal/Abdominal: Soft, No Tenderness Extremity: Normal ROM (FROM of right elbow joint), Tenderness (tenderness to lateral aspect of right elbow), Capillary Refill (less than 2 seconds), No Deformity, No Swelling Pulses: Left Radial: Normal, Right Radial: Normal Neurological/Psych: Oriented x3, Normal Speech, Normal Motor, Normal Sensation ED Course And Treatment - Laboratory Results Result Diagrams: 01/02/18 07:59 01/02/18 07:59 Lab Interpretation: No Acute Changes ECG: Interpreted By Me, Viewed By Me ECG Rhythm: Sinus Tachycardia ECG Interpretation: No Acute Changes Rate From EC (PAC) O2 Sat by Pulse Oximetry: 100 (RA) Pulse Ox Interpretation: Normal - Other Rad CXR X-Ray: Viewed By Me, Read By Radiologist Interpretation: HISTORY: SOB. COMPARISON: Comparison made with chest radiograph 12/15/2017. TECHNIQUE: Chest PA and lateral. FINDINGS: In situ right IJ dialysis catheter with tips in the SVC. LUNGS: Pulmonary vasculature is increased consistent with mild pulmonary venous congestion likely fluid overload however rule out CHF. . In addition, a mild bibasilar atelectasis versus developing alveolar-type infiltrates. PLEURA: No significant pleural effusion identified. No pneumothorax apparent. CARDIOVASCULAR: Cardiomegaly. OSSEOUS STRUCTURES: No significant abnormalities. VISUALIZED UPPER ABDOMEN: Normal. OTHER FINDINGS: None. IMPRESSION: Findings suggest mild pulmonary venous congestion possibly due to fluid overload however rule out CHF. Mild bibasilar atelectasis versus developing lower lobe alveolar-type infiltrates Medical Decision Making Medical Decision Making: Impression: 42 year old male with fever, chills, cough, congestion, and chest tightness since yesterday. Prior records reviewed: Patient admitted 12/14/17 and discharged 12/31/17 for ESRD with uremic symptoms, HTN and acute gout. Durig hospitalization, patient had Left arm AV fistula placement by Dr Ocampo on 12/21/17. Patient started dialysis with Dr Elaine 12/22 on MWF schedule Plan: * Blood work * CXR * Tylenol, Prednisone * EKG Progress: WBC elevated but not as elevated during hospitalization; patient on prednisone Case discussed with Dr Hernandez recommends CTA r.o PE CTA ordered and reviewed with no PE. Case discussed with Joseph Haynes who wants to run case by Dr Elaine and will admit if patient needs dialysis Disposition - Disposition Disposition: HOSPITALIZED Disposition Time: 10:55 Condition: STABLE - POA Present On Arrival: None - Clinical Impression Clinical Impression: CHF (congestive heart failure), ESRD (end stage renal disease), Gout - PA / SECURITY SYSTEMS MANAGER / Resident Statement MD/DO has reviewed & agrees with the documentation as recorded. - Scribe Statement The provider has reviewed the documentation as recorded by the Scribe José Manuel Moss All medical record entries made by the Hiraibe were at my direction and personally dictated by me. I have reviewed the chart and agree that the record accurately reflects my personal performance of the history, physical exam, medical decision making, and the department course for this patient. I have also personally directed, reviewed, and agree with the discharge instructions and disposition. Decision To Admit - Pt Status Changed To: Hospital Disposition Of: Inpatient - Admit Certification Admit to Inpatient:: After my assessment, the patient will require hospitalization for at least two midnights. This is because of the severity of symptoms shown, intensity of services needed, and/or the medical risk in this patient being treated as an outpatient. - InPatient: Physician Admission Certification:: Patient presented with chest tightness and SOB, tachycardic on exam. Labs show elevated WBC, unchanged. CTA shows no PE. Patient on ESRD on HD will need HD after CTA and patient symptomatic c.o dyspnea. Will admit - . Bed Request Type: Telemetry Admitting Physician: Sergey Card Patient Diagnosis: CHF (congestive heart failure), ESRD (end stage renal disease), Gout
[2018-01-02 08:10] LABS: BASO % 0.2 % (0.0-2.0); EOS # 0.2 K/uL (0.0-0.7); EOS % 1.1 % (0.0-4.0); HEMOGLOBIN 9.8 g/dL (12.0-18.0); LYMPH % 8.8 % (20.0-40.0); MEAN CORPUSCULAR HEMOGLOBIN 27.6 pg (27.0-31.0); MEAN CORPUSCULAR HGB CONC 31.6 g/dL (33.0-37.0); MEAN PLATELET VOLUME 7.6 fL (7.2-11.7); MONO # 2.2 K/uL (0.0-0.8); MONO % 9.6 % (0.0-10.0); NEUT # 18.4 K/uL (1.8-7.0); NEUT % 80.3 % (50.0-75.0); RBC 3.56 Mil/uL (4.40-5.90); RED CELL DISTRIBUTION WIDTH 19.9 % (11.5-14.5); WHITE BLOOD COUNT 22.9 K/uL (4.8-10.8)
[2018-01-02 08:12] LABS: INR 0.9; PROTHROMBIN TIME 10.2 SECONDS (9.7-12.2)
[2018-01-02 08:13] LABS: MEAN CELL VOLUME 87.3 fL (80.0-94.0); PLATELET COUNT 121 K/uL (130-400)
--- NOTE | 2018-01-02 08:17 | RAD ---
HISTORY: SOB COMPARISON: Comparison made with chest radiograph 12/15/2017 TECHNIQUE: Chest PA and lateral FINDINGS: In situ right IJ dialysis catheter with tips in the SVC. LUNGS: Pulmonary vasculature is increased consistent with mild pulmonary venous congestion likely fluid overload however rule out CHF. . In addition, a mild bibasilar atelectasis versus developing alveolar-type infiltrates. PLEURA: No significant pleural effusion identified. No pneumothorax apparent. CARDIOVASCULAR: Cardiomegaly OSSEOUS STRUCTURES: No significant abnormalities. VISUALIZED UPPER ABDOMEN: Normal. OTHER FINDINGS: None. IMPRESSION: Findings suggest mild pulmonary venous congestion possibly due to fluid overload however rule out CHF. Mild bibasilar atelectasis versus developing lower lobe alveolar-type infiltrates
[2018-01-02 08:40] LABS: B-TYPE NATRIURETIC PEPTIDE 3170 pg/mL (0-450)
[2018-01-02 08:41] LABS: ALB/GLOB RATIO 1.4 (1.0-2.1); ALBUMIN 3.5 g/dL (3.5-5.0); ALT/SGPT 76 U/L (21-72); AST/SGOT 36 U/L (17-59); BLOOD UREA NITROGEN 62 mg/dL (9-20); CALCIUM 7.9 mg/dl (8.6-10.4); GFR AFRICAN-AMERICAN 12; GFR NON-AFRICAN AMERICAN 10
[2018-01-02] MEDS ORDERED: Iodixanol 320 MG/ML 100 ML BOTTLE IV ONE (09:47)
[2018-01-02 10:03] LABS: ANISOCYTOSIS MODERATE; EOSINOPHIL 1 % (0-4); LYMPHOCYTE 9 % (20-40); MICROCYTOSIS SLIGHT; MONOCYTE 9 % (0-10); NEUTROPHIL 81 % (50-75); PLATELET ESTIMATE SLIGHTLY DECREASED (NORMAL); TOTAL CELLS COUNTED 100
[2018-01-02 10:04] LABS: HYPOCHROMIC SLIGHT; POLYCHROMIC SLIGHT
--- NOTE | 2018-01-02 11:03 | CT ---
PROCEDURE: CT Chest with contrast (Pulmonary Angiogram) HISTORY: SOB COMPARISON: Comparison made with chest radiograph obtained earlier same day TECHNIQUE: Axial computed tomography images were obtained of the chest in the pulmonary arterial phase of enhancement. Coronal and sagittal reformatted images were created and reviewed. Intravenous contrast dose: 100 cc Visipaque 320 Radiation dose: Total exam DLP = mGy-cm. This CT exam was performed using one or more of the following dose reduction techniques: Automated exposure control, adjustment of the mA and/or kV according to patient size, and/or use of iterative reconstruction technique. FINDINGS: In situ dialysis catheter with tips in the SVC/RA. PULMONARY ARTERIES: Unremarkable. No pulmonary embolism. Pulmonary trunk measures approximately 3.0 cm ; rule out underlying mild pulmonary arterial hypertension AORTA: No acute findings. No thoracic aortic aneurysm. Ascending thoracic aorta measures approximately 2.9 cm and descending thoracic aorta measures approximately 2.2 cm. LUNGS: There are mild patchy ground-glass and early nodular alveolar type opacity seen in the right upper and lower lobes. Similar but lesser ground-glass opacities also seen in the left upper lobe, lingular and superior margin of the left upper lobe. . Rule out underlying pulmonary edema/ fluid overload -CHF versus developing pneumonitis-pneumonia not completely excluded however fluid overload is favored PLEURAL SPACES: Trace bilateral effusions right slightly larger than left. . No evidence pneumothorax. HEART: Right upper and lower lobes with vague ground-glass opacities LYMPH NODES: No significant mediastinal or hilar adenopathy. Central airways midline and patent. No large central endoluminal lesions are identified. There is a small hiatal hernia with mild wall thickening of the distal esophagus likely due to protrusion of gastric mucosa. Possibility of esophagitis not excluded. . BONES, CHEST WALL: Unremarkable. No fracture or destructive lesion. Mild changes of gynecomastia. OTHER FINDINGS: Unremarkable. IMPRESSION: No evidence of central pulmonary embolus mild patchy ground-glass and early nodular alveolar type opacity seen in the right upper and lower lobes. Similar but lesser ground-glass opacities also seen in the left upper lobe, lingular and superior margin of the left upper lobe. . Rule out underlying pulmonary edema/ fluid overload -CHF versus developing multifocal pneumonia not completely excluded however former is favored
[2018-01-03 09:20] VITALS: RESP 18
--- NOTE | 2018-01-03 09:22 | CP.PCM.HP ---
History of Present Illness - History of Present Illness History of Present Illness: CC: Fever/ cough 42 y/o male with gout, ESRD and HTN. Patient on wednesday morning has fever, dry cough and R elbow start hurting again. He was seen in ER and was advise to stay for HD Present on Admission - Present on Admission Any Indicators Present on Admission: Yes History of DVT/PE: No History of Uncontrolled Diabetes: No Urinary Catheter: No Decubitus Ulcer Present: No Review of Systems - Review of Systems Systems not reviewed;Unavailable: Acuity of Condition - Constitutional Constitutional: Night Sweats. absent: Chills, Excessive Sweating, Increased Appetite - EENT Eyes: absent: Exophthalmos, Pain, Spots in Vision, Other Ears: absent: Decreased Hearing, Ear Discharge, Dizziness Nose/Mouth/Throat: Nasal Congestion. absent: Hoarsness, Mouth Lesions, Mouth Pain, Odynophagia, Sore Throat - Cardiovascular Cardiovascular: Orthopnea, Paroxysmal Nocturnal Dyspnea. absent: Chest Pain, Diaphoresis, Dyspnea, Leg Edema, Leg Ulcers, Palpitations - Respiratory Respiratory: absent: Cough, Dyspnea, Chest Congestion - Gastrointestinal Gastrointestinal: absent: Diarrhea, Heartburn, Melena, Nausea - Genitourinary Genitourinary: absent: Dysuria, Pyuria, Nocturia - Musculoskeletal Musculoskeletal: absent: Back Pain, Myalgias, Numbness - Integumentary Integumentary: absent: Alopecia, Lesions, Rash Past Patient History - Infectious Disease Hx of Infectious Diseases: None - Past Medical History & Family History Past Medical History?: Yes - Past Social History Smoking Status: Never Smoked - CARDIAC Hx Congestive Heart Failure: Yes Hx Hypercholesterolemia: Yes Hx Hypertension: Yes - PULMONARY Hx Chronic Obstructive Pulmonary Disease (COPD): No - HEENT Hx HEENT Problems: No - RENAL Hx Chronic Kidney Disease: Yes - ENDOCRINE/METABOLIC Hx Endocrine Disorders: No - INTEGUMENTARY Hx Dermatological Problems: No - MUSCULOSKELETAL/RHEUMATOLOGICAL Hx Musculoskeletal Disorders: No Hx Falls: No - GASTROINTESTINAL Hx Gastrointestinal Disorders: No - PSYCHIATRIC Hx Substance Use: No - SURGICAL HISTORY Hx Surgeries: Yes Hx Vascular Access Device: Yes (left hand av istula inserted 3 weeks ago) Other/Comment: R chest dialysis catheter - ANESTHESIA Hx Anesthesia: No Hx Anesthesia Reactions: No Hx Malignant Hyperthermia: No Meds Allergies/Adverse Reactions: Allergies Allergy/AdvReac Type Severity Reaction Status Date / Time No Known Allergies Allergy Verified 12/07/17 05:01 Physical Exam - Constitutional Appears: Well - Eye Exam Eye Exam: Normal appearance - ENT Exam ENT Exam: Mucous Membranes Moist - Neck Exam Neck exam: Positive for: Full Rom. Negative for: Lymphadenopathy, Normal Inspection - Respiratory Exam Respiratory Exam: Decreased Breath Sounds, Rhonchi. absent: Rales, Wheezes - Cardiovascular Exam Cardiovascular Exam: REGULAR RHYTHM, +S1, +S2. absent: Gallop, JVD, Systolic Murmur - GI/Abdominal Exam GI & Abdominal Exam: Soft. absent: Mass, Tenderness - Extremities Exam Extremities exam: Positive for: full ROM, normal capillary refill. Negative for : calf tenderness, joint swelling, pedal edema Results - Vital Signs Recent Vital Signs: Last Vital Signs Temp 97.7 F 01/02/18 23:30 Pulse 101 H 01/03/18 09:09 Resp 20 01/02/18 23:30 BP 140/77 01/03/18 09:09 Pulse Ox 99 01/02/18 23:30 - Labs Result Diagrams: 01/02/18 07:59 01/02/18 07:59 Labs: Laboratory Results - last 24 hr 01/02/18 01/02/18 01/02/18 07:59 07:59 17:33 Neutrophils % (Manual) 81 H Lymphocytes % (Manual) 9 L Monocytes % (Manual) 9 Eosinophils % (Manual) 1 Platelet Estimate Slightly decreased L Polychromasia Slight Hypochromasia (manual) Slight Anisocytosis (manual) Moderate Microcytosis (manual) Slight Macrocytosis (manual) Slight PT 10.2 INR 0.9 APTT 29 D-Dimer, Quantitative 863 H POC Glucose (mg/dL) 124 H 01/02/18 01/03/18 21:14 06:14 Neutrophils % (Manual) Lymphocytes % (Manual) Monocytes % (Manual) Eosinophils % (Manual) Platelet Estimate Polychromasia Hypochromasia (manual) Anisocytosis (manual) Microcytosis (manual) Macrocytosis (manual) PT INR APTT D-Dimer, Quantitative POC Glucose (mg/dL) 157 H 79 Assessment & Plan - Assessment and Plan (Free Text) Assessment: Ac Gout on R Elbow; CHF? / ESRD Pneumonia ?? Start rocephin and Bronchodilator restart BP meds For HD before discharge
[2018-01-03] MEDS ORDERED: Metoprolol Succinate 50 mg XL Tab PO SCH (10:00)
--- NOTE | 2018-01-03 12:58 | CP.PCM.CON ---
History of Present Illness - History of Present Illness History of Present Illness: CC: Fever/ cough 42 y/o male with gout, ESRD and HTN, hereditary nephritis. Patient on 01/02 morning had fever, dry cough and R elbow start hurting again presumably from gout. He was seen in ER and was advise to stay for HD- due today Only PSH- left neha AV fistula Review of Systems - Constitutional Constitutional: Chills, Weakness - EENT Eyes: absent: As Per HPI, Blind Spots, Blurred Vision, Change in Vision, Decreased Night Vision, Diplopia, Discharge, Dry Eye, Exophthalmos, Floaters, Irritation, Itchy Eyes, Loss of Peripheral Vision, Pain, Photophobia, Requires Corrective Lenses, Sees Flashes, Spots in Vision, Tunnel Vision, Other Visual Disturbances, Loss of Vision, Other Ears: absent: As Per HPI, Decreased Hearing, Ear Discharge, Ear Pain, Tinnitus, Abnormal Hearing, Disequilibrium, Dizziness, Other Nose/Mouth/Throat: absent: As Per HPI, Epistaxis, Nasal Congestion, Nasal Discharge, Nasal Obstruction, Nasal Trauma, Nose Pain, Post Nasal Drip, Sinus Pain, Sinus Pressure, Bleeding Gums, Change in Voice, Dental Pain, Dry Mouth, Dysphagia, Halitosis, Hoarsness, Lip Swelling, Mouth Lesions, Mouth Pain, Odynophagia, Sore Throat, Throat Swelling, Tongue Swelling, Facial Pain, Neck Pain, Neck Mass, Other - Cardiovascular Cardiovascular: absent: As Per HPI, Acrocyanosis, Chest Pain, Chest Pain at Rest , Chest Pain with Activity, Claudication, Diaphoresis, Dyspnea, Dyspnea on Exertion, Edema, Irregular Heart Rhythm, Pain Radiating to Arm/Neck/Jaw, Leg Edema, Leg Ulcers, Lightheadedness, Orthopnea, Palpitations, Paroxysmal Nocturnal Dyspnea, Pedal Edema, Radiating Pain, Rapid Heart Rate, Slow Heart Rate, Syncope, Other - Respiratory Respiratory: Cough, Pain with Coughing - Gastrointestinal Gastrointestinal: absent: As Per HPI, Abdominal Pain, Belching, Bloating, Change in Bowel Habits, Change in Stool Character, Coffee Ground Emesis, Constipation, Cramping, Diarrhea, Dyspepsia, Dysphagia, Early Satiety, Excessive Flatus, Fecal Incontinence, Heartburn, Hematemesis, Hematochezia, Loose Stools, Melena, Nausea, Odynophagia, Temesmus, Vomiting, Other - Genitourinary Genitourinary: As Per HPI - Musculoskeletal Musculoskeletal: Arthralgias, Muscle Cramps, Myalgias - Neurological Neurological: absent: As Per HPI, Abnormal Gait, Abnormal Hearing, Abnormal Movements, Abnormal Speech, Behavioral Changes, Burning Sensations, Confusion, Convulsions, Disequilibrium, Dizziness, Numbness, Focal Weakness, Frequent Falls , Headaches, Lack of Coordination, Loss of Vision, Memory Loss, Paresthesias, Radicular Pain, Restless Legs, Sensory Deficit, Syncope, Tingling, Tremor, Vertigo, Weakness, Other Visual Disturbances, Other Past Patient History - Infectious Disease Hx of Infectious Diseases: None - Past Medical History & Family History Past Medical History?: Yes Pertinent Family History: brother with hereditay nephritis on dialysis - Past Social History Smoking Status: Never Smoked Chewing Tobacco Use: No Cigar Use: No Alcohol: None Drugs: Denies - CARDIAC Hx Congestive Heart Failure: Yes Hx Hypercholesterolemia: Yes Hx Hypertension: Yes - PULMONARY Hx Chronic Obstructive Pulmonary Disease (COPD): No - HEENT Hx HEENT Problems: No - RENAL Hx Chronic Kidney Disease: Yes - ENDOCRINE/METABOLIC Hx Endocrine Disorders: No - INTEGUMENTARY Hx Dermatological Problems: No - MUSCULOSKELETAL/RHEUMATOLOGICAL Hx Musculoskeletal Disorders: No Hx Falls: No - GASTROINTESTINAL Hx Gastrointestinal Disorders: No - PSYCHIATRIC Hx Substance Use: No - SURGICAL HISTORY Hx Surgeries: Yes Hx Vascular Access Device: Yes (left hand av istula inserted 3 weeks ago) Other/Comment: R chest dialysis catheter - ANESTHESIA Hx Anesthesia: No Hx Anesthesia Reactions: No Hx Malignant Hyperthermia: No Meds Allergies/Adverse Reactions: Allergies Allergy/AdvReac Type Severity Reaction Status Date / Time No Known Allergies Allergy Verified 12/07/17 05:01 - Medications Medications: Current Medications Albuterol/Ipratropium (Duoneb 3 Mg/0.5 Mg (3 Ml) Ud) 3 ml INH RQ6 [facility] Amlodipine Besylate (Norvasc) 5 mg PO DAILY [facility] Last Admin: 01/03/18 09:10 Dose: 5 mg Heparin Sodium (Porcine) (Heparin) 5,000 units SC Q12 [facility] Last Admin: 01/03/18 09:15 Dose: Not Given Ceftriaxone Sodium 1 gm/ (Sodium Chloride) 100 mls @ 100 mls/hr IVPB DAILY [facility] PRN Reason: Protocol Stop: 01/04/18 23:59 Last Admin: 01/03/18 11:13 Dose: 100 mls/hr Metoprolol Succinate (Toprol Xl) 50 mg PO DAILY [facility] Last Admin: 01/03/18 09:10 Dose: 50 mg Physical Exam - Constitutional Appears: No Acute Distress, Chronically Ill - Head Exam Head Exam: ATRAUMATIC, NORMAL INSPECTION - Eye Exam Eye Exam: EOMI, Normal appearance - Neck Exam Neck exam: Positive for: Normal Inspection. Negative for: Tenderness - Respiratory Exam Respiratory Exam: Clear to Auscultation Bilateral, NORMAL BREATHING PATTERN - Cardiovascular Exam Cardiovascular Exam: REGULAR RHYTHM, +S1 - GI/Abdominal Exam GI & Abdominal Exam: Soft. absent: Tenderness - Extremities Exam Extremities exam: Positive for: normal inspection. Negative for: tenderness - Neurological Exam Neurological exam: Alert, Oriented x3 - Skin Skin Exam: Dry, Warm Results - Vital Signs Recent Vital Signs: Last Vital Signs Temp 97.7 F 01/03/18 07:00 Pulse 101 H 01/03/18 09:09 Resp 18 01/03/18 07:00 BP 140/77 01/03/18 09:09 Pulse Ox 100 01/03/18 07:00 - Labs Result Diagrams: 01/02/18 07:59 01/02/18 07:59 Labs: Laboratory Results - last 24 hr 01/02/18 01/02/18 01/03/18 17:33 21:14 06:14 POC Glucose (mg/dL) 124 H 157 H 79 01/03/18 11:19 POC Glucose (mg/dL) 100 Assessment & Plan (1) Gout attack Status: Acute (2) Hereditary nephritis Status: Acute (3) HTN (hypertension) Status: Chronic - Assessment and Plan (Free Text) Plan: dialysis today rx for gout check cultures
[2018-01-03] MEDS ORDERED: Albuterol-Ipratrop 3 mg / 0.5 (3 ml) UD INH SCH (14:00)
[2018-01-03 14:45] LABS: BASO # 0.1 K/uL (0.0-0.2); BASO % 0.5 % (0.0-2.0); EOS # 0.2 K/uL (0.0-0.7); EOS % 1.2 % (0.0-4.0); HEMOGLOBIN 8.7 g/dL (12.0-18.0); LYMPH # 1.7 K/uL (1.0-4.3); LYMPH % 10.2 % (20.0-40.0); MEAN CELL VOLUME 86.5 fL (80.0-94.0); MEAN CORPUSCULAR HEMOGLOBIN 28.1 pg (27.0-31.0); MEAN CORPUSCULAR HGB CONC 32.4 g/dL (33.0-37.0); MEAN PLATELET VOLUME 7.7 fL (7.2-11.7); MONO # 1.5 K/uL (0.0-0.8); NEUT # 12.9 K/uL (1.8-7.0); NEUT % 79.1 % (50.0-75.0); RBC 3.09 Mil/uL (4.40-5.90); RED CELL DISTRIBUTION WIDTH 20.4 % (11.5-14.5); WHITE BLOOD COUNT 16.3 K/uL (4.8-10.8)
[2018-01-03 15:23] LABS: ALB/GLOB RATIO 1.2 (1.0-2.1); ALBUMIN 3.2 g/dL (3.5-5.0); CALCIUM 7.2 mg/dl (8.6-10.4)
[2018-01-03] MEDS ORDERED: EPOETIN ALFA 4,000 UNIT/ML ML Dialysis IV ONE (16:00)
[2018-01-03 17:34] VITALS: BP 159/97; PULSE 107; TEMP 98.4; O2SAT 98
--- NOTE | 2018-01-03 21:27 | CARD ---
APPROVED REPORT EKG Measurement Heart [id number] [id number] <Conclusion> Sinus tachycardia with premature atrial complexes Otherwise normal ECG
[2018-01-05] MEDS ORDERED: Epoetin Alfa 4000 UNIT/ML Inj IV SCH (09:00)
== END 2018-01-03 17:55 | disposition home or self-care (01) ==
LOC: C.ER 07:01 → C.9E 10:55 → C.6T 12:39
PROVIDERS: ADMIT Internal Medicine; ATTEND Internal Medicine
DX: M10.9 Gout, unspecified (principal); I13.2 Hypertensive heart and chronic kidney disease with heart failure and with stage 5 chronic kidney disease, or end stage renal disease; E78.00 Pure hypercholesterolemia, unspecified; I50.9 Heart failure, unspecified; N18.6 End stage renal disease; Z99.2 Dependence on renal dialysis
CPT/HCPCS: 36415; 71046; 71275; 80053; 82948; 83880; 84484; 85025; 85378; 85610; 85730; 87040; 93005; 99285; G0257; G0378; J0696; J0885; Q9967